=== PATIENT | male | born 1950 | race Caucasian/White ===

== ENCOUNTER 2020-01-13 10:19 | Emergency (ER) | payer MEDICARE, OTHER, SELFPAY ==
--- NOTE | 2020-01-13 | CT_ITS ---
EXAMINATION: CT ABDOMEN AND PELVIS WITHOUT CONTRAST CLINICAL INFORMATION: Urinary retention with recent bilateral stent placement. COMPARISON: Previous CT of the abdomen and pelvis most recent November 2014 and bladder ultrasound December 2017. TECHNIQUE: Multidetector volumetric imaging was performed from the superior aspect of the liver through the pubic symphysis. Sagittal and coronal reformatted images were obtained on the technologist's workstation. This CT examination was performed using dose optimization techniques as appropriate, variously including the following: *Automated exposure control *Adjustment of mA and/or kV according to patient size (this includes techniques or standardized protocols for targeted exams where dose is matched to indication/reason for exam; i.e. extremities or head) *Use of iterative reconstruction technique DLP: 276 mGy-cm. FINDINGS: LUNG BASES: The visualized lung bases are clear. The lungs appear well inflated. LIVER, GALLBLADDER, AND BILIARY TREE: The liver is normal in size, shape, and attenuation. No focal hepatic lesion or biliary ductal dilatation is present. The gallbladder is unremarkable with no evidence of radiopaque gallstones, gallbladder wall thickening, or obvious pericholecystic inflammatory changes. PANCREAS: There are multiple calcifications in the pancreas, suggestive of chronic pancreatitis. There is a cyst is seen in the uncinate process of the head of the pancreas that measures 1.8 cm. This is increased in size from 1.5 cm on 2015 exam. SPLEEN: Unremarkable. ADRENAL GLANDS: Unremarkable. KIDNEYS AND URETERS: The right kidney is atrophic. There is mild dilatation of the right renal pelvis. There is a small 4 mm high-attenuation area in the upper pole of the right kidney questionable for hyperdense cyst or calcification. The right ureter does not appear dilated. There may be compensatory hypertrophy of the left kidney. No left renal stone or hydronephrosis is seen. The left ureter does not appear dilated. No ureteral stent is seen. BLADDER: There is a Kumar catheter in the bladder. There is a moderate amount of urine seen in the bladder. There is air in the bladder, presumably related to Kumar catheter placement. GASTROINTESTINAL TRACT: There is stool seen throughout the colon, suggestive of constipation. There are fluid-filled loops of small bowel. The appendix is unremarkable. ABDOMINAL WALL: There is a small umbilical hernia containing fat. LYMPH NODES: Normal. VASCULAR: There is evidence of severe atherosclerotic disease. There is a stent in the SMA, and, left common iliac and bilateral external iliac arteries. There are small fluid collection seen in both inguinal regions and skin nissa. There are superficial fluid collection seen just deep to the surgical nissa bilaterally, left greater than right. There is a deeper 4 cm fluid collection adjacent to the left superficial femoral and profunda femoral arteries. There is a deeper 2 cm fluid collection adjacent to the right common femoral artery and femoral bifurcation. PELVIC VISCERA: Unremarkable. OSSEOUS STRUCTURES: There are degenerative changes of the spine and hip joints. IMPRESSION: Kumar catheter in the bladder. There is a [id number] amount of fluid in the bladder. There is air in the bladder, question related to Kumar catheter placement. Atrophic-appearing right kidney and probable compensatory hypertrophy of the left kidney. No definite stone or hydronephrosis is seen. No ureteral stent seen. Severe atherosclerotic disease. Surgical clips in both groins suggestive of recent previous vascular procedure. Left common iliac and bilateral external iliac stents. Bilateral groin fluid collections, question post procedural, left greater than right. There are bilateral superficial fluid collections deep to the skin nissa, left greater than right and deeper fluid collection adjacent to the distal SFA/femoral bifurcations measuring 2 cm on the right and 4 cm on the left. If there is concern for a pseudoaneurysm, AV fistula, leak or hematoma, ultrasound or CTA should be considered. SMA stent. Extensive calcification in the pancreas suggestive of chronic pancreatitis. 1.8 cm cyst or cystic lesion in the uncinate process of the pancreas minimally increased from 1.5 cm on November 2014 exam. Stool throughout the colon, suggestive of constipation. Distended fluid-filled loops of small bowel, probably representing an ileus.
--- NOTE | 2020-01-13 | US_ITS ---
EXAMINATION: BILATERAL LOWER EXTREMITY ULTRASOUND NONVASCULAR CLINICAL INFORMATION: Evaluate fluid collections in the bilateral groins COMPARISON: CT of the abdomen and pelvis from earlier the same day TECHNIQUE: Doppler color and grayscale evaluation of the bilateral groins FINDINGS: There are bilateral superficial fluid collections seen in the groins adjacent to the vessels extending into the thighs. These do not contain flow to suggest pseudoaneurysm. Fluid collection in the right proximal thigh appears minimally complex with several thin septations. The remainder of the fluid collections appear simple without internal echoes or septations. Largest right fluid collection measures 4.1 x 5 x 2.2 cm. Largest left fluid collection measures 3.5 x 5.5 x 3.6 cm. The common femoral arteries are patent bilaterally. The left proximal superficial femoral and profunda femoral arteries are patent. IMPRESSION: Bilateral groin superficial fluid collections, minimally complex on the right and simple on the left. No evidence of pseudoaneurysm.
[2020-01-13 10:32] VITALS: BP 149/71; PULSE 90; RESP 18; TEMP 36.3; BMI 20.2
[2020-01-13 10:57] LABS: MANUAL DIFF FLAG NO
[2020-01-13 11:00] LABS: Basophils Percent Auto 0.2 % (0-2); Eosinophils Percent Auto 0.1 % (0-4); Hematocrit 33.2 % (42-52); Hemoglobin 11.5 g/dl (14.0-18.0); Imm Gran Abs Auto 0.17 X10*3/uL (0.00-0.03); Imm Gran Pct Auto 1.3 % (0.0-0.4); Lymphocytes Percent Auto 7.3 % (20-40); Mean Corpuscular HGB Conc 34.6 g/dl (31.0-36.0); Mean Corpuscular Hemoglobin 33.8 pg (27.0-33.0); Mean Corpuscular Volume 97.6 fL (80-98); Mean Platelet Volume 8.3 fL (9.4-12.4); Monocytes Absolute Auto 1.2 X10*3/uL (0.1-1.2); Monocytes Percent Auto 8.5 % (2-11); Neutrophils Absolute Auto 11.2 X10*3/uL (2.0-8.3); Neutrophils Percent Auto 82.6 % (45-73); Platelet Count 413 X10*3/uL (160-400); Red Cell Distribution Width 14.2 % (11.0-16.0); White Blood Count 13.6 X10*3/uL (4.8-10.8)
[2020-01-13 11:21] LABS: Blood Urea Nitrogen 14 mg/dL (9-16); Creatinine Clr Calc Pharmacy 57.9; Estimated Glomerular Filt Rate > 60; Glucose Random 161 mg/dL (60-115)
[2020-01-13 11:30] LABS: Anion Gap 16 (12-20); Carbon Dioxide 17 mmol/L (22-29); Chloride 96 mmol/L (96-108); Sodium 124 mmol/L (135-145)
--- NOTE | 2020-01-13 11:33 | PC.NURSE ---
DIFFICULTY INSERTING A CATHETER DR MEREDITH AT BEDSIDE, PT TOLERATED PROCEDURE WELL
[2020-01-13 11:55] LABS: Glucose Urine UA NEG (NEG); Leukocyte Esterase Urine NEG (NEG); Nitrite Urine NEG (NEG); Specific Gravity - Urine <= 1.005 (1.005-1.025); Urine Blood 3+ (NEG); Urine Ketones NEG (NEG); Urine Protein NEG (NEG-TRACE)
[2020-01-13 11:58] LABS: Appearance Urine CLEAR; Color Urine YELLOW
[2020-01-13 12:08] LABS: Bacteria Urine TRACE /LPF; Renal Epithelial Cells Urine TRACE /LPF; Squamous Epithelial Cell Urine 1+ /LPF; WBC Urine 0-2 /HPF (0-4)
[2020-01-13 12:14] VITALS: BP 138/76; PULSE 86; RESP 16; TEMP 36.4; O2SAT 99
--- NOTE | 2020-01-13 12:41 | ED_ITS ---
HPI - Male Genitourinary General Chief complaint: Urogenital-Male Stated complaint: FREQUENT URINATION Time Seen by Provider: 01/13/20 10:41 Source: patient Mode of arrival: ambulatory History of Present Illness HPI Narrative: 69-year-old male with a past medical history of hypertension, diabetes, hyperlipidemia, BPH, recent bilateral LE arterial stent placement c/o urinary retention/ frequency at night with decreased UOP. Denies fever, chills, nausea/ vomiting, abdominal pain, flank pain, hematuria, dysuria Related Data Previous Rx's Medication Instructions Recorded metoprolol succinate 50 mg 50 mg PO DAILY 30 Days #30 tab 01/08/20 tablet,extended release 24 hr Allergies Allergy/AdvReac Type Severity Reaction Status Date / Time clams Allergy Severe SWELLING Verified 01/13/20 10:21 clams Allergy Unknown anaphylaxis Unverified 11/11/19 00:00 Review of Systems Review of Systems: Constitutional: No Weight loss, No Fever, No Chills, Cardiovascular: No Chest Pain, No SOB Respiratory: No Cough, No Sputum, No Wheezing Gastrointestinal: No Nausea, No Vomiting, No Diarrhea, No Constipation, No abdominal Pain Genitourinary: no irregular bleeding, No Dysuria, + Urinary Frequency, No Hematuria, No Urinary Incontinence, No Urgency, No Flank Pain, + Urinary Flow Changes, No Hesitancy Skin: No Skin Lesions, No rash Yes all other systems are reviewed and are negative Neurologic: Denies Sensory deficit (Neuro) [facility] Past Medical History Attestation statement: The following information was validated with the patient. Medical History (Updated 01/13/20 @ 15:00 by ALDEN Bowen) Diabetes Hyperlipidemia Hypertension Urological system complication of procedure Social History Social History Alcohol intake: current Alcohol intake frequency: 0-2 drinks per day Alcohol type: beer Smoking Status: Current every day smoker Use of substances other than those prescribed or required for medical reasons: No Advance Directives: No Advance Directives Information Provided: Yes Physical Exam Vital Signs and I&O and Narrative: Vital Signs and I&O: Vital Signs Temp 97.6 F 01/13/20 12:14 Pulse 95 01/13/20 14:20 Resp 16 01/13/20 14:20 BP 121/71 01/13/20 14:20 Pulse Ox 99 01/13/20 12:14 Intake & Output 01/12/20 01/13/2001/12/20 18:59 06:59 18:59 Output Total 1428 / 1428 Balance -1428 / -1428 Urine Output (Aver age ml/kg/hr) 2.10 Weight 56.8 kg Output: Output, Urine Am ount 1428 / 1428 Body Mass Index 20.2 Const: General: cooperative and healthy appearing Orientation/consciousness: patient oriented x3 Limitations: no limitations HENMT: Head: Yes normal to inspection Ears: hearing grossly normal bilate rally General nose exam: Normal external nose present Face and sinus: Yes normal facial exam Eyes: General: appearance normal, both eyes and all related structures EOM: EOMs intact bilaterally Neck: Neck: Yes normal visual inspection Resp: Effort & Inspection: normal respiratory effort and no stridor Auscultation: clear to auscultation bilaterally, no crackles, no rales, no rhonc hi and no wheezes Cardio: Rate: regular rate Heart sounds: S1 normal heart sound present and S2 normal heart sound present Peripheral pulses: Peripheral pulses 2+ throughout GI: Other: no CVAT Inspection: Yes normal to inspection Palpation (GI): Soft to palpation, nontender, no guarding and not rigid : General: No CVA tenderness Penis: normal penis Testes: Testes normal Back/Spine/Pelvis: Back: No CVA tenderness Skin: Wounds: no wounds Neuro: General: patient oriented x3 Gait exam (Neuro): Normal gait present Sensory Exam: No Sensory deficit (Neuro) Extrem: General: Yes normal to inspection Course Course Course Narrative: -Coude placed due to BPH/difficulty inserting Kumar -1259-- mild leukocytosis of 13.6. H&H slightly lower than baseline, likely postsurgical changes Sodium chronically low UA with 3+ blood. Not infected -1309- CT showing flow catheter in the bladder with moderate to large amount of fluid. Bladder currently draining > will obtain bladder scan to eval fluid seen on CT Question pseudoaneurysm vs AV fistula vs leak or hematoma in groin. Will obtain ultrasound to evaluate Stool throughout the colon suggestive of constipation. Distended fluid-filled probably representing ileus >> patient has been having normal BMs, last yesterday, clinically no ileus /obstruction -1448-- ultrasound showing bilateral groin superficial fluid collections, minimally complex on the right and simple left. No evidence of pseudoaneurysm lab and imaging results discussed with patient including worrisome signs and symptoms and strict return precautions. Patient will be discharged with indwelling Kumar catheter to follow-up with urology Reevaluation(s) Reevaluation #3: repeat bladder scan with 28 cc MDM - Male Genitourinary MDM Narrative Medical decision making narrative: 69-year-old male with a past medical history of hypertension, diabetes, hyperlipidemia, BPH, recent bilateral LE arterial stent placement c/o urinary retention/ frequency at night with decreased UOP. On exam VSS, NAD/ well-appearing. Abdomen soft/nontender, no CVA tenderness. Concern for urinary retention vs obstruction vs ?surgical complication. Rule out infectious etiology Plan: labs, UA, CT AP, reassess bladder scan with greater than 500 cc >> patient unable to urinate will insert Kumar catheter Lab Data Result diagrams: 01/13/20 10:52 01/13/20 10:52 Labs: Lab Results 01/13/20 01/13/20 01/13/20 Range/Units 10:52 10:52 10:52 WBC 13.6 H (4.8-10.8) X10*3/uL RBC 3.40 L (4.60-5.80) X10*6/uL Hgb 11.5 L (14.0-18.0) g/dl Hct 33.2 L (42-52) % MCV 97.6 (80-98) fL MCH 33.8 H (27.0-33.0) pg MCHC 34.6 (31.0-36.0) g/dl RDW 14.2 (11.0-16.0) % Plt Count 413 H (160-400) X10*3/uL MPV 8.3 L (9.4-12.4) fL Immature Gran % (Auto) 1.3 H (0.0-0.4) % Neut % (Auto) 82.6 H (45-73) % Lymph % (Auto) 7.3 L (20-40) % [place] % (Auto) 8.5 (2-11) % Eos % (Auto) 0.1 (0-4) % Baso % (Auto) 0.2 (0-2) % Neut # (Auto) 11.2 H (2.0-8.3) X10*3/uL Lymph # (Auto) 1.0 L (1.2-4.9) X10*3/uL [place] # (Auto) 1.2 (0.1-1.2) X10*3/uL Eos # (Auto) 0.0 (0.0-0.4) X10*3/uL Baso # (Auto) 0.0 (0.0-0.2) X10*3/uL Abs Immat Gran (auto) 0.17 H (0.00-0.03) X10*3/uL Absolute Nucleated RBC 0.000 (0.0-0.012) X10*3/uL Nucleated RBC % (auto) 0.0 (0.0-0.2) /100WBC Hold Blue Top SEE NOTE Sodium 124 L (135-145) mmol/L Potassium 5.0 (3.3-5.1) mmol/l Chloride 96 (96-108) mmol/L Carbon Dioxide 17 L (22-29) mmol/L Anion Gap 16 (12-20) BUN 14 (9-16) mg/dL Creatinine 0.98 (0.5-1.4) mg/dL Estim Creat Clear Calc 57.9 Estimated GFR > 60 Random Glucose 161 H (60-115) mg/dL Calcium 8.0 L (8.4-10.2) mg/dL Urine Color Urine Appearance Urine pH (5.0-8.0) Ur Specific [place] (1.005-1.025) Urine Protein (NEG-TRACE) MG/DL Urine Glucose (UA) (NEG) MG/DL Urine Ketones (NEG) MG/DL Urine Blood (NEG) Urine Nitrite (NEG) Ur Leukocyte Esterase (NEG) Urine RBC (0) /HPF Urine WBC (0-4) /HPF Ur Squamous Epith Cells /LPF Ur Renal Epithelial Cell /LPF Urine Bacteria /LPF 01/13/20 Range/Units 11:37 WBC (4.8-10.8) X10*3/uL RBC (4.60-5.80) X10*6/uL Hgb (14.0-18.0) g/dl Hct (42-52) % MCV (80-98) fL MCH (27.0-33.0) pg MCHC (31.0-36.0) g/dl RDW (11.0-16.0) % Plt Count (160-400) X10*3/uL MPV (9.4-12.4) fL Immature Gran % (Auto) (0.0-0.4) % Neut % (Auto) (45-73) % Lymph % (Auto) (20-40) % [place] % (Auto) (2-11) % Eos % (Auto) (0-4) % Baso % (Auto) (0-2) % Neut # (Auto) (2.0-8.3) X10*3/uL Lymph # (Auto) (1.2-4.9) X10*3/uL [place] # (Auto) (0.1-1.2) X10*3/uL Eos # (Auto) (0.0-0.4) X10*3/uL Baso # (Auto) (0.0-0.2) X10*3/uL Abs Immat Gran (auto) (0.00-0.03) X10*3/uL Absolute Nucleated RBC (0.0-0.012) X10*3/uL Nucleated RBC % (auto) (0.0-0.2) /100WBC Hold Blue Top Sodium (135-145) mmol/L Potassium (3.3-5.1) mmol/l Chloride (96-108) mmol/L Carbon Dioxide (22-29) mmol/L Anion Gap (12-20) BUN (9-16) mg/dL Creatinine (0.5-1.4) mg/dL Estim Creat Clear Calc Estimated GFR Random Glucose (60-115) mg/dL Calcium (8.4-10.2) mg/dL Urine Color YELLOW Urine Appearance CLEAR Urine pH 7.0 (5.0-8.0) Ur Specific [place] <= 1.005 (1.005-1.025) Urine Protein NEG (NEG-TRACE) MG/DL Urine Glucose (UA) NEG (NEG) MG/DL Urine Ketones NEG (NEG) MG/DL Urine Blood 3+ H (NEG) Urine Nitrite NEG (NEG) Ur Leukocyte Esterase NEG (NEG) Urine RBC 1-4 (0) /HPF Urine WBC 0-2 (0-4) /HPF Ur Squamous Epith Cells 1+ /LPF Ur Renal Epithelial Cell TRACE /LPF Urine Bacteria TRACE /LPF Discharge Plan Discharge Clinical Impression: Acute retention of urine Patient Disposition: Home, Self-Care Instructions: Urinary Retention in Men (ED) Additional Instructions: your blood work was reassuring today in the ED. Your urine is not infected Your CAT scan showed evidence of constipation. It also showed fluid in your groin which was evaluated with an ultrasound, the ultrasound did not show any concerning findings You were in urinary retention, we placed a Kumar catheter. You need to follow- up with urology in 1 week to have catheter removed /a trial to void If your urine becomes bloody, painful, your you do not have a bowel movement, nausea/vomiting, or develops fever return to the ED Prescriptions: No Action metoprolol succinate 50 mg tablet extended release 24 hr 50 mg PO DAILY 30 Days Qty: 30 RF: 2 Referrals: Quinton Andrade III, MD [Physician] - 5 days
--- NOTE | 2020-01-13 13:41 | PC.NURSE ---
pt bladder scan for 28ml pt transported to us
[2020-01-13 14:20] VITALS: BP 121/71; PULSE 95; RESP 14; RESP 16
== END 2020-01-13 15:28 | disposition home or self-care (01) ==
PROVIDERS: Physician Assistant; Emergency Provider Emergency Medicine; PCP Nurse Practitioner Family
DX: R33.9 Retention of urine, unspecified (principal); I10 Essential (primary) hypertension; E11.9 Type 2 diabetes mellitus without complications; E78.5 Hyperlipidemia, unspecified; F17.200 Nicotine dependence, unspecified, uncomplicated
CPT/HCPCS: 51702; 36415; 51798; 74176; 76882; 80048; 81001; 85025; 99284; 99285

== ENCOUNTER → 2020-01-22 08:33 | Outpatient (BNVA) | payer MEDICARE, OTHER, SELFPAY | PROVIDERS: PCP Nurse Practitioner Family; Visit Provider Urology | DX: Z46.6 Encounter for fitting and adjustment of urinary device (principal); N99.89 Other postprocedural complications and disorders of genitourinary system; R33.8 Other retention of urine | CPT/HCPCS: 51798; 99213 ==

== ENCOUNTER → 2020-01-28 08:36 | Outpatient (BNVA) | payer MEDICARE, OTHER, SELFPAY | PROVIDERS: PCP Nurse Practitioner Family; Visit Provider Urology | DX: R33.9 Retention of urine, unspecified (principal) | CPT/HCPCS: 51798; 99213 ==

== ENCOUNTER → 2020-02-15 09:21 | Outpatient (BNVA) | payer MEDICARE, OTHER, SELFPAY | PROVIDERS: PCP Nurse Practitioner Family; Visit Provider Internal Medicine | DX: J44.9 Chronic obstructive pulmonary disease, unspecified (principal); F17.210 Nicotine dependence, cigarettes, uncomplicated; Z79.899 Other long term (current) drug therapy; Z71.6 Tobacco abuse counseling | CPT/HCPCS: 94010; 99212 ==

== ENCOUNTER 2020-03-02 07:49 | Outpatient (REF) | payer MEDICARE, OTHER, SELFPAY ==
[2020-03-02 11:50] LABS: Alanine Aminotransferase 17 U/L (0-40); Albumin Level 3.5 g/dL (3.5-5.0); Alkaline Phosphatase 85 U/L (39-117); Anion Gap 14 (12-20); Aspartate Amino Transferase 15 U/L (5-37); Bilirubin Total 0.3 mg/dL (0.0-1.0); Blood Urea Nitrogen 25 mg/dL (9-16); Calcium 8.5 mg/dL (8.4-10.2); Carbon Dioxide 19 mmol/L (22-29); Chloride 103 mmol/L (96-108); Cholesterol 94 mg/dL; Estimated Glomerular Filt Rate > 60; Glucose Fasting 125 mg/dL (60-99); HDL Cholesterol 38 mg/dL; LDL Cholesterol Calculated 40 mg/dl; Potassium 5.7 mmol/l (3.3-5.1); Sodium 130 mmol/L (135-145); Total Protein 6.2 g/dL (6.5-8.0); Triglycerides 83 mg/dL
[2020-03-02 11:53] LABS: Estimated Average Glucose 126 mg/dL
[2020-03-02 12:08] LABS: Prostate Specific Antigen Scr 0.54 ng/mL (<0.05-4.0)
== END 2020-03-02 07:50 | disposition home or self-care (01) ==
LOC: HO.HMGCLDS 07:49
PROVIDERS: PCP Nurse Practitioner Family; Visit Provider Nurse Practitioner Family
DX: E78.5 Hyperlipidemia, unspecified (principal); E11.9 Type 2 diabetes mellitus without complications; I10 Essential (primary) hypertension; Z12.5 Encounter for screening for malignant neoplasm of prostate
CPT/HCPCS: 80053; 80061; 83036; 84153

== ENCOUNTER 2020-03-04 10:51 | Outpatient (REF) | payer MEDICARE, OTHER, SELFPAY ==
[2020-03-04 14:22] LABS: Anion Gap 16 (12-20); Carbon Dioxide 19 mmol/L (22-29); Chloride 101 mmol/L (96-108); Potassium 4.6 mmol/l (3.3-5.1); Sodium 131 mmol/L (135-145)
[2020-03-04 14:40] LABS: Creatinine Urine 35.85 mg/dL; Microalbum/Creatinine Ratio Ur 323.5 ug/mg cr
== END 2020-03-04 10:52 | disposition home or self-care (01) ==
LOC: HO.HMGCLDS 10:51
PROVIDERS: PCP Nurse Practitioner Family; Visit Provider Nurse Practitioner Family
DX: Z13.9 Encounter for screening, unspecified (principal); R33.9 Retention of urine, unspecified; E11.9 Type 2 diabetes mellitus without complications; E78.5 Hyperlipidemia, unspecified; I10 Essential (primary) hypertension; E87.5 Hyperkalemia
CPT/HCPCS: 80051; 82043; 87086; 87088; 87186

== ENCOUNTER → 2020-04-11 14:33 | Outpatient (BNVA) | payer MEDICARE, OTHER, SELFPAY | PROVIDERS: PCP Nurse Practitioner Family; Visit Provider Urology | DX: N39.0 Urinary tract infection, site not specified (principal); N99.89 Other postprocedural complications and disorders of genitourinary system; R33.8 Other retention of urine | CPT/HCPCS: 51798; 81002; 99212 ==

== ENCOUNTER → 2020-04-25 08:51 | Outpatient (BNVA) | payer MEDICARE, OTHER, SELFPAY | PROVIDERS: PCP Nurse Practitioner Family; Visit Provider Urology | DX: Z76.89 Persons encountering health services in other specified circumstances (principal) | CPT/HCPCS: 51798; 99212 ==

== ENCOUNTER 2020-04-25 09:35 | Outpatient (REF) | payer MEDICARE, OTHER, SELFPAY ==
[2020-04-25 10:38] LABS: Blood Urea Nitrogen 33 mg/dL (9-16); Estimated Glomerular Filt Rate 42
== END 2020-04-25 09:36 | disposition home or self-care (01) ==
LOC: HO.10HDL 09:35
PROVIDERS: Visit Provider Urology
DX: R31.0 Gross hematuria (principal)
CPT/HCPCS: 36415; 51798; 82565; 84520; 99212

== ENCOUNTER 2020-04-26 | Outpatient (REF) | payer MEDICARE, OTHER, SELFPAY ==
[2020-04-27 09:20] LABS: Urine Cytology See Pathology rpt
== END 2020-04-26 00:01 | disposition home or self-care (01) ==
LOC: HO.LNP
PROVIDERS: Visit Provider Urology
DX: R31.0 Gross hematuria (principal)
CPT/HCPCS: 88112

== ENCOUNTER 2020-05-02 08:34 | Outpatient (REF) | payer MEDICARE, OTHER, SELFPAY ==
--- NOTE | 2020-05-02 08:37 | CT_ITS ---
EXAMINATION: CT ABDOMEN AND PELVIS WITHOUT AND WITH CONTRAST CLINICAL INFORMATION: Gross hematuria COMPARISON: CT abdomen and pelvis 01/13/2020 TECHNIQUE: Multidetector volumetric imaging was performed of the abdomen and pelvis before and after the IV administration of 85 mL of Omnipaque 300 intravenous contrast. Sagittal and coronal reformatted images were obtained on the technologist's workstation. This CT examination was performed using dose optimization techniques as appropriate, variously including the following: *Automated exposure control *Adjustment of mA and/or kV according to patient size (this includes techniques or standardized protocols for targeted exams where dose is matched to indication/reason for exam; i.e. extremities or head) *Use of iterative reconstruction technique DLP: 98 mGy-cm FINDINGS: LUNG BASES: The lung bases are hyperinflated. LIVER, GALLBLADDER, AND BILIARY TREE: The liver is normal in size, shape, and attenuation. No focal hepatic lesion or biliary ductal dilatation is present. The gallbladder is unremarkable with no evidence of radiopaque gallstones, gallbladder wall thickening, or obvious pericholecystic inflammatory changes. PANCREAS: The pancreas is normal size with diffuse coarse calcification likely from chronic pancreatitis. There is moderate dilation of the pancreatic duct, measuring 0.7 x 0.9 cm in distal body of the pancreas. There is a hypodense 2.0 cm lesion in the uncinate process of the pancreas measuring 20 Hounsfield units likely a cyst. On the last exam, it measured 1.8 cm and 1.5 cm on 2015 exam. SPLEEN: Unremarkable ADRENAL GLANDS: There is a left adrenal hypodense lesion measuring 2.1 x 1.6 cm and 56 Hounsfield units on coronal image 43/10. The right adrenal gland is unremarkable. KIDNEYS AND URETERS: The right kidney is small measuring 7.1 cm with a focal hypodensity in the upper pole calyx, question prominent calyx versus small cyst measuring 5 mm. The left kidney is normal size measuring 12.1 cm. There is normal cortical nephrograms without any cyst, solid mass, echogenic calculi, or hydronephrosis. There is good opacification of the left kidney, extrarenal pelvis and ureter without filling defect or dilatation. The right ureter and pelvis are not opacified. BLADDER: The bladder is somewhat distended with diffuse irregular bladder wall thickening. The anterior wall thickness measures approximately 6 mm. There is a small diverticulum along the right anterior bladder wall. GASTROINTESTINAL TRACT: There are multiple prominent small bowel loops with fluid. There is gas and stool seen in the right colon but no distention seen. ABDOMINAL WALL: No significant hernia is appreciated. LYMPH NODES: Normal VASCULAR: There is heavily calcified abdominal aorta and its branches extending to both common iliac arteries and external iliac arteries. PELVIC VISCERA: The prostate gland is mildly enlarged with central lucency, question TURP defect. OSSEOUS STRUCTURES: Mild degenerative disc changes with endplate sclerosis L2-L3 and L4-L5 disc levels. There is degenerative disc changes and vacuum disc phenomena at L3-L4, L1-L2 and T12-L1 disc levels. No fracture or lytic process seen. CT/CT abdomen pelvis wo/w con IMPRESSION: 1. Small right kidney with probable small cyst, upper pole right kidney. 2. No radiopaque calculus seen in either kidney. [employer] Consultant hypertrophy left kidney is noted without any radiopaque calculi or hydroureteronephrosis. The left ureter is unremarkable. The right ureter is not visualized. 3. Diffuse bladder wall thickening likely secondary to prostate enlargement. There is a small bladder diverticulum The central prostate hypodensity, question TURP defect. 4. Left adrenal lesion. 5. Diffuse pancreatic parenchymal calcification from chronic pancreatitis. There is moderate distention of the pancreatic duct in the mid abdomen and likely a cyst in the uncinate process of the pancreas.
[2020-05-02] MEDS: iohexoL 350 MG/ML 100 ML INFUS..BTL 85 ML IV (10:23)
== END 2020-05-02 08:35 | disposition home or self-care (01) ==
LOC: HO.CT 08:34
PROVIDERS: Visit Provider Urology
DX: R31.0 Gross hematuria (principal); F17.200 Nicotine dependence, unspecified, uncomplicated
CPT/HCPCS: 74178; Q9967

== ENCOUNTER → 2020-06-02 08:48 | Outpatient (BNVA) | payer MEDICARE, OTHER, SELFPAY | PROVIDERS: PCP Nurse Practitioner Family; Visit Provider Urology | DX: N40.1 Benign prostatic hyperplasia with lower urinary tract symptoms (principal); N13.8 Other obstructive and reflux uropathy; N39.0 Urinary tract infection, site not specified; F17.200 Nicotine dependence, unspecified, uncomplicated; Z46.6 Encounter for fitting and adjustment of urinary device; Z96.0 Presence of urogenital implants | CPT/HCPCS: 52332; 81002; 99212 ==

== ENCOUNTER → 2020-06-30 09:50 | Outpatient (BNVA) | payer MEDICARE, OTHER, SELFPAY | PROVIDERS: PCP Nurse Practitioner Family; Visit Provider Urology | DX: N40.1 Benign prostatic hyperplasia with lower urinary tract symptoms (principal); N13.8 Other obstructive and reflux uropathy; R31.0 Gross hematuria | CPT/HCPCS: 99212 ==

== ENCOUNTER 2020-07-20 07:06 | Outpatient (REF) | payer MEDICARE, OTHER, SELFPAY ==
[2020-07-20 11:32] LABS: Estimated Average Glucose 137 mg/dL; Hemoglobin A1c % 6.4 %
[2020-07-20 12:27] LABS: TSH reflex Free T4 1.15 uIU/mL (0.32-4.0)
[2020-07-20 12:42] LABS: Alanine Aminotransferase 21 U/L (0-40); Albumin Level 3.5 g/dL (3.5-5.0); Alkaline Phosphatase 125 U/L (39-117); Anion Gap 14 (12-20); Aspartate Amino Transferase 23 U/L (5-37); Bilirubin Total 0.3 mg/dL (0.0-1.0); Blood Urea Nitrogen 22 mg/dL (9-16); Calcium 8.2 mg/dL (8.4-10.2); Carbon Dioxide 14 mmol/L (22-29); Chloride 105 mmol/L (96-108); Cholesterol 95 mg/dL; Estimated Glomerular Filt Rate 49; Glucose Fasting 84 mg/dL (60-99); HDL Cholesterol 53 mg/dL; LDL Cholesterol Calculated 25 mg/dl; Potassium 5.1 mmol/L (3.3-5.1); Sodium 128 mmol/L (135-145); Total Protein 5.9 g/dL (6.5-8.0); Triglycerides 87 mg/dL
== END 2020-07-20 07:07 | disposition home or self-care (01) ==
LOC: HO.HMGCLDS 07:06
PROVIDERS: PCP Nurse Practitioner Family; Visit Provider Nurse Practitioner Family
DX: E11.9 Type 2 diabetes mellitus without complications (principal); N39.0 Urinary tract infection, site not specified; R79.89 Other specified abnormal findings of blood chemistry
CPT/HCPCS: 36415; 80053; 80061; 83036; 84443

== ENCOUNTER 2020-07-24 09:52 | Inpatient (IN) | payer MEDICARE, OTHER, SELFPAY ==
--- NOTE | 2020-07-24 | EEG_ITS ---
The waking background activity consists of low voltage fast frequencies, intermixed with muscle artifacts and poorly defined low voltage 8 hertz posterior alpha frequency. Photic stimulation is without activation. Hyperventilation was omitted. No sleep stages are identified. IMPRESSION: This waking EEG is considered within normal limits. No focal abnormalities are seen in the left hemisphere language area and there are no epileptiform discharges. MD PARESH Lake/JOHN / [id number]
--- NOTE | ~2020-07-24 | XR_ITS ---
EXAMINATION: XR CHEST CLINICAL INFORMATION: Concern for stroke. COMPARISON: 10/08/19. TECHNIQUE: Frontal view of the chest was obtained. FINDINGS: There are mild chronic appearing interstitial changes. No focal consolidation, mass lesion or other abnormality is demonstrated. The pleural spaces are clear. The heart and mediastinal structures are normal. No acute bony abnormality is evident. XR/XR chest 1V IMPRESSION: No acute cardiopulmonary disease demonstrated.
--- NOTE | ~2020-07-24 | MR_ITS ---
MRI OF THE BRAIN WITHOUT IV CONTRAST INDICATION: Question stroke. COMPARISON: Head CT performed earlier the same day. TECHNIQUE: Multiplanar multisequence MR imaging of the brain was obtained without IV contrast. FINDINGS: There is no hydrocephalus, extra-axial surface collection, or herniation. There are T2 signal changes throughout the supratentorial white matter and central neftali, likely moderate to severe chronic microangiopathy. 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 The major flow voids at the skull base are preserved. There is no acute infarct on diffusion-weighted imaging. There is no intracranial hemorrhage on the gradient recalled echo acquisition. Punctate focus of chronic hemosiderin staining within the left temporal lobe. The midline structures are normal. The cerebellar tonsils are normally positioned. The cerebellum and brainstem are normal. The craniocervical junction is normal. Osseous marrow signal intensity is homogenous. The visualized soft tissues are unremarkable. Moderate mucosal thickening within the left maxillary sinus. MR/MR head/brain wo con IMPRESSION: - No acute intracranial findings. No acute infarcts. - There are T2 signal changes throughout the supratentorial white matter and central neftali, likely moderate to severe chronic microangiopathy. 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 - Global cerebral volume loss.
--- NOTE | ~2020-07-24 | CT_ITS ---
EXAMINATION: CT HEAD WITHOUT CONTRAST (STROKE PROTOCOL) CLINICAL INFORMATION: Stroke protocol. Workup with symptoms COMPARISON: None TECHNIQUE: Contiguous axial imaging was performed from the skull base to vertex without intravenous administration of contrast. This CT examination was performed using dose optimization techniques as appropriate, variously including the following: *Automated exposure control *Adjustment of mA and/or kV according to patient size (this includes techniques or standardized protocols for targeted exams where dose is matched to indication/reason for exam; i.e. extremities or head) *Use of iterative reconstruction technique DLP: 656 mGy-cm FINDINGS: There is no acute intra-axial, extra-axial bleed, masses, collection or midline shift. There is moderate hypodensity in the mid neftali region on axial image 10/3 suspicious for ischemia. Differential diagnosis includes small vessel disease. In addition there is hypodensity seen in the left posterior parietal lobe deep white matter adjacent to the occipital horn likely old infarct. The lateral ventricles are symmetrical but enlarged. There is diffuse periventricular hypodensity suggestive of diffuse chronic small vessel ischemic changes. The calvarium appears intact. There is no pneumocephalus or orbital emphysema. The visualized sinuses and middle ears and mastoid air cells show no significant mucosal thickening. There are no air-fluid levels. CT/CT head for stroke IMPRESSION: Moderate hypodensity in the mid neftali region suspicious for edema or ischemia. There are no previous exam at the level of comparison. There is moderate cerebral volume loss with extensive bilateral periventricular small vessel microangiopathy. 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 This critical result was discussed with Suresh Buitrago at 10:15 a.m. It was ascertained that the content and urgency of the report was understood at the time of direct communication.
[2020-07-24 09:57] VITALS: BP 156/78; BP 157/77; PULSE 111; PULSE 120; RESP 16; TEMP 37.7; O2SAT 92; BMI 19.6
--- NOTE | 2020-07-24 09:57 | ECG_ITS ---
Test Reason : STROKE Blood Pressure : / mmHG Vent. Rate : 107 BPM Atrial Rate : 107 BPM P-R Int : 164 ms QRS Dur : 100 ms QT Int : 326 ms P-R-T Axes : 071 068 055 degrees QTc Int : 435 ms Sinus tachycardia Otherwise normal ECG When compared with ECG of 09-NOV-2014 11:20, ST no longer elevated in Inferior leads Referred By: Minna Prince Electronically Signed By:Adryan Izaguirre
--- NOTE | 2020-07-24 10:02 | ED_ITS ---
HPI - Altered Mental Status General Chief Complaint: Altered Mental Status Stated Complaint: ams Time Seen by Provider: 07/24/20 09:56 Source: family ( Chelle) and EMS Mode of arrival: EMS Limitations: altered mental status History of Present Illness HPI narrative: 69-year-old male with a past medical history of hypertension, diabetes, hyperlipidemia, BPH, bilateral lower extremity arterial stent placement currently on Plavix last took at 4pm yesterday presenting to the ED via EMS after his found him at approximately 8:30-9am with altered mental status mumbling his words not making any sense and unable to figure out how to urinate on his own. Although initially from EMS report they reported that this was unknown well time and patient woke up with this. The reports that last night around 23:00 that the patient was at his normal baseline although he was complaining of being cold therefore she gave him his electric blanket then this morning when he woke up she noticed he went down the stairs and he poured his own coffee and he appeared to be reading the paper she went upstairs to do some things and she came back downstairs at approximately 08:30-9am. And he was mumbling his words unable to figure out how to urinate she was trying to help him then she realized that she needed to call EMS. MD complaint: altered mental status Onset (ago): unknown (Initially EMS reported a known well time that the patient woke up with this per is report although reports this started around 8:30/09:00 this morning) Timing confirmed by: spouse ( for Carla) Severity: severe Consistency of symptoms: constant Related Data Home Medications Medication Instructions Recorded Confirmed oxybutynin chloride 15 mg mg PO 01/22/20 07/11/20 tablet,extended release 24 hr oxybutynin chloride 5 mg mg PO 01/22/20 07/11/20 tablet,extended release 24 hr multivitamin 1 tab PO DAILY 02/15/20 07/11/20 tamsulosin 0.4 mg capsule mg PO 02/15/20 07/11/20 lisinopril 40 mg tablet 40 mg PO DAILY 06/02/20 07/11/20 Previous Rx's Medication Instructions Recorded atorvastatin 80 mg tablet 80 mg PO BEDTIME 90 Days #90 tab 04/04/20 amlodipine 10 mg tablet 10 mg PO DAILY 90 Days #90 tab 05/09/20 finasteride 5 mg tablet 5 mg PO DAILY 90 Days #90 tab 06/02/20 sulfamethoxazole 800 1 tab PO BID 14 Days #28 tab 06/30/20 mg-trimethoprim 160 mg tablet clopidogrel 75 mg tablet 75 mg PO DAILY #90 tab 07/11/20 metoprolol succinate 50 mg 50 mg PO DAILY #90 tab 07/11/20 tablet,extended release 24 hr Allergies Allergy/AdvReac Type Severity Reaction Status Date / Time clams Allergy Severe SWELLING Verified 07/11/20 08:46 Review of Systems Review of Systems: Yes Unobtainable due to mental status [facility] Past Medical History Attestation statement: The following information was validated with the patient. Medical History Carotid artery narrowing COPD (chronic obstructive pulmonary disease) Diabetes ETOH abuse Gross hematuria Hyperlipidemia Hypertension Peripheral arterial disease PVD (peripheral vascular disease) Smoker Toxic myopathy Urological system complication of procedure Surgical History H/O heart artery stent Family History Family History Father Parkinsons disease Mother Diabetes Social History Social History Alcohol intake: current Alcohol intake frequency: 0-2 drinks per day Alcohol type: beer Smoking Status: Current every day smoker Advance Directives: Yes Advance Directives Information Provided: No Advance Directives on File: No Physical Exam Vital Signs: Vital Signs: Last Vital Signs Temp 98.3 F 07/24/20 15:25 Pulse 107 H 07/24/20 15:25 Resp 26 H 07/24/20 15:25 BP 173/83 H 07/24/20 15:25 Pulse Ox 93 07/24/20 15:25 Body Mass Index 19.6 Vital signs have been reviewed as normal and appeared to be correct. Blood pressure hypertensive 157/77. Heart rate tachycardic at 111. Respiration rate normal. Temperature normal. Oxygen saturation normal. Appearance: Altered/Confused. Mild acute distress. Head: Normal external exam. Normocephalic. Atraumatic. Able to rotate head bilaterally. Eyes: PERRLA. EOMI. No nystagmus noted. Conjunctiva and sclera normal. Eyelids normal. Corneal reflex normal. ENT: EAC normal. TM's Normal. No septal hematoma noted. No hemotympanum noted. Hearing normal. Around the patient's lips patient has dried blood and in the oropharynx. ? abrasion to left side of tongue no active bleeding. Otherwise no other obvious abrasions or lacerations noted. The rest of the pharynx is within normal limits. Uvula midline. tongue midline. Dry mucous membranes. No trismus noted. No drooling noted. No muffled voice noted. No nystagmus noted. Neck: Normal inspection. Neck supple. FROM. No adenopathy. Trachea midline. Thyroid Normal. No meningeal signs. No neck mass noted. CVS: Normal heart rate and rhythm. Heart sound normal. No murmurs noted. Pulses normal throughout. Respiratory: No respiratory distress. Painless inspiration. Breath sounds normal. No wheezes/rales/rhonchi noted. Chest nontender. No accessory muscle usage noted or decreased air movement noted. Abdomen: Soft and nontender. Bowel sounds normal in all 4 quadrants. No distention noted. No organomegaly noted. No visible injury noted. Back: No CVA tenderness. Full range of motion noted. Skin: Skin warm and dry. Normal skin color. Normal skin turgor. No rashes/lesions/lacerations noted. Extremities: No lower extremity edema. Extremities exhibit normal range of motion. Extremities nontender. Able to shrug shoulders bilaterally and keep up against resistance. Neuro: Altered/confused with moderate to severe aphasia/dysarthria although no focal neuro deficits are noted. Patient follows a few commands but for the most part does not follow any commands. No sensory deficit noted. Reflexes are normal. Patient is moving all extremities. No focal neuro deficits. Cranial nerves II-XI intact bilaterally. Facial strength normal. Gait not tested. No pronator drift. No tremors noted. No fasciculations noted. No rigidity noted. Muscle tone normal throughout. No asterixis noted. Hand drop overhead Mrs. face. NIH SS score 6. NIH Stroke Scale Internal: Initial- Upon Arrival Time: 09:57 Level of Consciousness: Alert Level of Consciousness Questions: Answers neither question correctly Level of Consciousness Commands: Performs one task correctly Best Gaze: Normal Visual: No visual loss Facial Palsy: Normal Motor Arm (Right): No drift Motor Arm (Left): No drift Motor Leg (Right): No drift Motor Leg (Left): No drift Limb Ataxia: Absent Sensory: Normal Best Language: Mild to moderate aphasia Dysarthia: Mild to moderate dysarthria Extinction and Inattention: Visual, tactile, auditory, spatial, or personal inattention Score: 6 Course Course Course Narrative: 10:14 - I received a call from Dr. Johnson the radiologist who reported No acute intercranial bleed although appears to have some type of brain stem lesion and he is recommending an MRI of brain at this time therefore ordered at this time. Consulted with neurology as well a waiting for return call. Will re-evaluate. Reevaluation(s) Reevaluation #1: - I received a call back from Dr. Barros the neurologist and explained to him the patient's presentation and the blood around the mouth and he reported due to the patient having blood around the mouth he would not give tPA and due to Dr. Johnson the radiologist already visualizing possible brainstem lesion he withhold tPA and obtain the MRI and admit. Will re-evaluate. Time: 10:22 Reevaluation #2: - MRI revealed chronic changes no acute processes such as CVA at this time. - labs reviewed and patient with an elevated white blood cell count of 22. - Mild anemia with an H&H of January. - sodium 128 - potassium 6.0 - carbon dioxide 15 - increase in the patient's BUN and creatinine at 34/1.78 - troponin 22.9 although no EKG changes were noted will repeat at 01:30 - all other labs are within normal limits. - patient was started on Rocephin for possible UTI due to history of UTIs in the past. Will place a Kumar at this time. Plan is to admit for encephalopathy/sepsis - Dr Vance to admit. Time: 12:02 Reevaluation #3: - UA obtained and patient positive for nitrates therefore patient positive for UTI. Drug urine screen negative. Will plan to admit to Dr. Renteria. Time: 15:33 MDM - Altered Mental Status MDM Narrative Medical decision making narrative: 9:57am - 69-year-old male with a past medical history of hypertension, diabetes, hyperlipidemia, BPH, recent bilateral lower extremity arterial stent placement currently on Plavix last took at 16:00 yesterday presenting to the ED via EMS after his found him at approximately 8:30-9am with altered mental status mumbling his words not making any sense and unable to figure out how to urinate on his own. Although initially from EMS report they reported that this was unknown well time and patient woke up with this. - On exam patient is alert although not orientated. No focal neuro deficits are noted. Patient has moderate to severe aphasia. NIHSS score 6. Patient is noted to have blood around his lips and in his mouth and abrasion to left side of tongue no active bleeding unsure if the patient had a seizure or had a fall with head injury therefore will consult with Neurology before any other treatments. Stroke protocol started at this time. Medical Records Attestation: I reviewed the patient's medical records. Lab Data Attestation: I reviewed the patient's lab results. Result diagrams: 07/24/20 10:37 07/24/20 10:37 Labs: Lab Results 07/24/20 07/24/20 07/24/20 Range/Units 10:13 10:37 10:37 WBC 22.0 H (4.8-10.8) X10*3/uL RBC 3.91 L (4.60-5.80) X10*6/uL Hgb 11.8 L (14.0-18.0) g/dl Hct 34.4 L (42-52) % MCV 88.0 (80-98) fL MCH 30.2 (27.0-33.0) pg MCHC 34.3 (31.0-36.0) g/dl RDW 16.2 H (11.0-16.0) % Plt Count 229 D (160-400) X10*3/uL MPV 8.7 L (9.4-12.4) fL Immature Gran % (Auto) 1.9 H (0.0-0.4) % Neut % (Auto) 88.5 H (45-73) % Lymph % (Auto) 1.1 L (20-40) % [place] % (Auto) 8.2 (2-11) % Eos % (Auto) 0.2 (0-4) % Baso % (Auto) 0.1 (0-2) % Lymph # (Auto) 0.2 L (1.2-4.9) X10*3/uL [place] # (Auto) 1.8 H (0.1-1.2) X10*3/uL Eos # (Auto) 0.0 (0.0-0.4) X10*3/uL Baso # (Auto) 0.0 (0.0-0.2) X10*3/uL Abs Immat Gran (auto) 0.41 H (0.00-0.03) X10*3/uL Absolute Neuts (auto) 19.5 H (2.0-8.3) X10*3/uL Absolute Nucleated RBC 0.000 (0.0-0.012) X10*3/uL Nucleated RBC % (auto) 0.0 (0.0-0.2) /100WBC Smear Tech's Comments VERIFIED PT 10.8 (10.8-13.0) SEC INR 0.9 (0.9-1.1) APTT 33.7 (24.1-38.0) SEC Sodium (135-145) mmol/L Potassium (3.3-5.1) mmol/L Chloride (96-108) mmol/L Carbon Dioxide (22-29) mmol/L Anion Gap (12-20) BUN (9-16) mg/dL Creatinine (0.5-1.4) mg/dL Estim Creat Clear Calc Estimated GFR POC Glucose 151 H (60-115) mg/dL Random Glucose (60-115) mg/dL Lactic Acid (0.5-2.0) mmol/L Calcium (8.4-10.2) mg/dL Magnesium (1.6-2.6) mg/dL Total Bilirubin (0.0-1.0) mg/dL Direct Bilirubin (0.0-0.5) mg/dL AST (5-37) U/L ALT (0-40) U/L Alkaline Phosphatase (39-117) U/L Ammonia (13-55) umol/L Total Creatine Kinase (38-174) U/L Troponin I High Sens (<3.5-35.0) ng/L Total Protein (6.5-8.0) g/dL Albumin (3.5-5.0) g/dL TSH (0.32-4.0) uIU/mL Urine Color Urine Appearance Urine pH (5.0-8.0) Ur Specific [place] (1.005-1.025) Urine Protein (NEG-TRACE) MG/DL Urine Glucose (UA) (NEG) MG/DL Urine Ketones (NEG) MG/DL Urine Blood (NEG) Urine Nitrite (NEG) Ur Leukocyte Esterase (NEG) Urine RBC (0) /HPF Urine WBC (0-4) /HPF Urine WBC Clumps Ur Squamous Epith Cells /LPF Urine Bacteria /LPF Urine Opiates Screen (Not Detect) Ur Barbiturates Screen (Not Detect) Ur Phencyclidine Scrn (Not Detect) Ur Amphetamines Screen (Not Detect) U Benzodiazepines Scrn (Not Detect) Urine Cocaine Screen (Not Detect) U Marijuana (THC) Screen (Not Detect) Ethyl Alcohol mg/dL 07/24/20 07/24/20 07/24/20 Range/Units 10:37 10:37 10:37 WBC (4.8-10.8) X10*3/uL RBC (4.60-5.80) X10*6/uL Hgb (14.0-18.0) g/dl Hct (42-52) % MCV (80-98) fL MCH (27.0-33.0) pg MCHC (31.0-36.0) g/dl RDW (11.0-16.0) % Plt Count (160-400) X10*3/uL MPV (9.4-12.4) fL Immature Gran % (Auto) (0.0-0.4) % Neut % (Auto) (45-73) % Lymph % (Auto) (20-40) % [place] % (Auto) (2-11) % Eos % (Auto) (0-4) % Baso % (Auto) (0-2) % Lymph # (Auto) (1.2-4.9) X10*3/uL [place] # (Auto) (0.1-1.2) X10*3/uL Eos # (Auto) (0.0-0.4) X10*3/uL Baso # (Auto) (0.0-0.2) X10*3/uL Abs Immat Gran (auto) (0.00-0.03) X10*3/uL Absolute Neuts (auto) (2.0-8.3) X10*3/uL Absolute Nucleated RBC (0.0-0.012) X10*3/uL Nucleated RBC % (auto) (0.0-0.2) /100WBC Smear Tech's Comments PT (10.8-13.0) SEC INR (0.9-1.1) APTT (24.1-38.0) SEC Sodium 128 L (135-145) mmol/L Potassium 6.0 H* (3.3-5.1) mmol/L Chloride 103 (96-108) mmol/L Carbon Dioxide 15 L (22-29) mmol/L Anion Gap 16 (12-20) BUN 34 H D (9-16) mg/dL Creatinine 1.78 H (0.5-1.4) mg/dL Estim Creat Clear Calc 30.1 Estimated GFR 38 POC Glucose (60-115) mg/dL Random Glucose 165 H (60-115) mg/dL Lactic Acid (0.5-2.0) mmol/L Calcium 8.5 (8.4-10.2) mg/dL Magnesium 2.1 (1.6-2.6) mg/dL Total Bilirubin 0.5 (0.0-1.0) mg/dL Direct Bilirubin 0.2 (0.0-0.5) mg/dL AST 19 (5-37) U/L ALT 18 (0-40) U/L Alkaline Phosphatase 96 D (39-117) U/L Ammonia 30 (13-55) umol/L Total Creatine Kinase 74 (38-174) U/L Troponin I High Sens 22.9 (<3.5-35.0) ng/L Total Protein 6.2 L (6.5-8.0) g/dL Albumin 3.6 (3.5-5.0) g/dL TSH 1.73 (0.32-4.0) uIU/mL Urine Color Urine Appearance Urine pH (5.0-8.0) Ur Specific [place] (1.005-1.025) Urine Protein (NEG-TRACE) MG/DL Urine Glucose (UA) (NEG) MG/DL Urine Ketones (NEG) MG/DL Urine Blood (NEG) Urine Nitrite (NEG) Ur Leukocyte Esterase (NEG) Urine RBC (0) /HPF Urine WBC (0-4) /HPF Urine WBC Clumps Ur Squamous Epith Cells /LPF Urine Bacteria /LPF Urine Opiates Screen (Not Detect) Ur Barbiturates Screen (Not Detect) Ur Phencyclidine Scrn (Not Detect) Ur Amphetamines Screen (Not Detect) U Benzodiazepines Scrn (Not Detect) Urine Cocaine Screen (Not Detect) U Marijuana (THC) Screen (Not Detect) Ethyl Alcohol mg/dL 07/24/20 07/24/20 07/24/20 Range/Units 10:37 10:37 14:45 WBC (4.8-10.8) X10*3/uL RBC (4.60-5.80) X10*6/uL Hgb (14.0-18.0) g/dl Hct (42-52) % MCV (80-98) fL MCH (27.0-33.0) pg MCHC (31.0-36.0) g/dl RDW (11.0-16.0) % Plt Count (160-400) X10*3/uL MPV (9.4-12.4) fL Immature Gran % (Auto) (0.0-0.4) % Neut % (Auto) (45-73) % Lymph % (Auto) (20-40) % [place] % (Auto) (2-11) % Eos % (Auto) (0-4) % Baso % (Auto) (0-2) % Lymph # (Auto) (1.2-4.9) X10*3/uL [place] # (Auto) (0.1-1.2) X10*3/uL Eos # (Auto) (0.0-0.4) X10*3/uL Baso # (Auto) (0.0-0.2) X10*3/uL Abs Immat Gran (auto) (0.00-0.03) X10*3/uL Absolute Neuts (auto) (2.0-8.3) X10*3/uL Absolute Nucleated RBC (0.0-0.012) X10*3/uL Nucleated RBC % (auto) (0.0-0.2) /100WBC Smear Tech's Comments PT (10.8-13.0) SEC INR (0.9-1.1) APTT (24.1-38.0) SEC Sodium (135-145) mmol/L Potassium (3.3-5.1) mmol/L Chloride (96-108) mmol/L Carbon Dioxide (22-29) mmol/L Anion Gap (12-20) BUN (9-16) mg/dL Creatinine (0.5-1.4) mg/dL Estim Creat Clear Calc Estimated GFR POC Glucose (60-115) mg/dL Random Glucose (60-115) mg/dL Lactic Acid 2.0 (0.5-2.0) mmol/L Calcium (8.4-10.2) mg/dL Magnesium (1.6-2.6) mg/dL Total Bilirubin (0.0-1.0) mg/dL Direct Bilirubin (0.0-0.5) mg/dL AST (5-37) U/L ALT (0-40) U/L Alkaline Phosphatase (39-117) U/L Ammonia (13-55) umol/L Total Creatine Kinase (38-174) U/L Troponin I High Sens (<3.5-35.0) ng/L Total Protein (6.5-8.0) g/dL Albumin (3.5-5.0) g/dL TSH (0.32-4.0) uIU/mL Urine Color YELLOW Urine Appearance HAZY Urine pH 6.5 (5.0-8.0) Ur Specific [place] 1.010 (1.005-1.025) Urine Protein TRACE (NEG-TRACE) MG/DL Urine Glucose (UA) NEG (NEG) MG/DL Urine Ketones NEG (NEG) MG/DL Urine Blood 1+ H (NEG) Urine Nitrite POS H (NEG) Ur Leukocyte Esterase 2+ H (NEG) Urine RBC 5-9 H (0) /HPF Urine WBC 30-49 H (0-4) /HPF Urine WBC Clumps NOTED Ur Squamous Epith Cells TRACE /LPF Urine Bacteria 2+ /LPF Urine Opiates Screen (Not Detect) Ur Barbiturates Screen (Not Detect) Ur Phencyclidine Scrn (Not Detect) Ur Amphetamines Screen (Not Detect) U Benzodiazepines Scrn (Not Detect) Urine Cocaine Screen (Not Detect) U Marijuana (THC) Screen (Not Detect) Ethyl Alcohol < 10 mg/dL 07/24/20 Range/Units 14:46 WBC (4.8-10.8) X10*3/uL RBC (4.60-5.80) X10*6/uL Hgb (14.0-18.0) g/dl Hct (42-52) % MCV (80-98) fL MCH (27.0-33.0) pg MCHC (31.0-36.0) g/dl RDW (11.0-16.0) % Plt Count (160-400) X10*3/uL MPV (9.4-12.4) fL Immature Gran % (Auto) (0.0-0.4) % Neut % (Auto) (45-73) % Lymph % (Auto) (20-40) % [place] % (Auto) (2-11) % Eos % (Auto) (0-4) % Baso % (Auto) (0-2) % Lymph # (Auto) (1.2-4.9) X10*3/uL [place] # (Auto) (0.1-1.2) X10*3/uL Eos # (Auto) (0.0-0.4) X10*3/uL Baso # (Auto) (0.0-0.2) X10*3/uL Abs Immat Gran (auto) (0.00-0.03) X10*3/uL Absolute Neuts (auto) (2.0-8.3) X10*3/uL Absolute Nucleated RBC (0.0-0.012) X10*3/uL Nucleated RBC % (auto) (0.0-0.2) /100WBC Smear Tech's Comments PT (10.8-13.0) SEC INR (0.9-1.1) APTT (24.1-38.0) SEC Sodium (135-145) mmol/L Potassium (3.3-5.1) mmol/L Chloride (96-108) mmol/L Carbon Dioxide (22-29) mmol/L Anion Gap (12-20) BUN (9-16) mg/dL Creatinine (0.5-1.4) mg/dL Estim Creat Clear Calc Estimated GFR POC Glucose (60-115) mg/dL Random Glucose (60-115) mg/dL Lactic Acid (0.5-2.0) mmol/L Calcium (8.4-10.2) mg/dL Magnesium (1.6-2.6) mg/dL Total Bilirubin (0.0-1.0) mg/dL Direct Bilirubin (0.0-0.5) mg/dL AST (5-37) U/L ALT (0-40) U/L Alkaline Phosphatase (39-117) U/L Ammonia (13-55) umol/L Total Creatine Kinase (38-174) U/L Troponin I High Sens (<3.5-35.0) ng/L Total Protein (6.5-8.0) g/dL Albumin (3.5-5.0) g/dL TSH (0.32-4.0) uIU/mL Urine Color Urine Appearance Urine pH (5.0-8.0) Ur Specific [place] (1.005-1.025) Urine Protein (NEG-TRACE) MG/DL Urine Glucose (UA) (NEG) MG/DL Urine Ketones (NEG) MG/DL Urine Blood (NEG) Urine Nitrite (NEG) Ur Leukocyte Esterase (NEG) Urine RBC (0) /HPF Urine WBC (0-4) /HPF Urine WBC Clumps Ur Squamous Epith Cells /LPF Urine Bacteria /LPF Urine Opiates Screen Not Detected (Not Detect) Ur Barbiturates Screen Not Detected (Not Detect) Ur Phencyclidine Scrn Not Detected (Not Detect) Ur Amphetamines Screen Not Detected (Not Detect) U Benzodiazepines Scrn Not Detected (Not Detect) Urine Cocaine Screen Not Detected (Not Detect) U Marijuana (THC) Screen Not Detected (Not Detect) Ethyl Alcohol mg/dL Imaging Data CT scan of brain for stroke: Attestation: I personally reviewed and interpreted this imaging study as follows: Radiologist's impression: FINDINGS: There is no acute intra-axial, extra-axial bleed, masses, collection or midline shift. There is moderate hypodensity in the mid neftali region on axial image 10/3 suspicious for ischemia. Differential diagnosis includes small vessel disease. In addition there is hypodensity seen in the left posterior parietal lobe deep white matter adjacent to the occipital horn likely old infarct. The lateral ventricles are symmetrical but enlarged. There is diffuse periventricular hypodensity suggestive of diffuse chronic small vessel ischemic changes. The calvarium appears intact. There is no pneumocephalus or orbital emphysema. The visualized sinuses and middle ears and mastoid air cells show no significant mucosal thickening. There are no air-fluid levels. CT/CT head for stroke IMPRESSION: Moderate hypodensity in the mid neftali region suspicious for edema or ischemia. There are no previous exam at the level of comparison. There is moderate cerebral volume loss with extensive bilateral periventricular small vessel microangiopathy. 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 This critical result was discussed with Suresh Buitrago at 10:15 a.m. It was ascertained that the content and urgency of the report was understood at the time of direct communication. MRI of brain without contrast for stroke: Attestation: I personally reviewed and interpreted this imaging study as follows: Radiologist's impression: FINDINGS: There is no hydrocephalus, extra-axial surface collection, or herniation. There are T2 signal changes throughout the supratentorial white matter and central neftali, likely moderate to severe chronic microangiopathy. 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 The major flow voids at the skull base are preserved. There is no acute infarct on diffusion-weighted imaging. There is no intracranial hemorrhage on the gradient recalled echo acquisition. Punctate focus of chronic hemosiderin staining within the left temporal lobe. The midline structures are normal. The cerebellar tonsils are normally positioned. The cerebellum and brainstem are normal. The craniocervical junction is normal. Osseous marrow signal intensity is homogenous. The visualized soft tissues are unremarkable. Moderate mucosal thickening within the left maxillary sinus. MR/MR head/brain wo con IMPRESSION: - No acute intracranial findings. No acute infarcts. - There are T2 signal changes throughout the supratentorial white matter and central neftali, likely moderate to severe chronic microangiopathy. 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 - Global cerebral volume loss. ECG Data ECG #1: Attestation: I personally reviewed and interpreted this ECG as follows: ECG interpretation date: 07/24/20 ECG interpretation time: 10:13 Interpretation: Sinus tachycardia with a ventricular rate of 107 with a normal MA interval normal QRS duration normal QT/QTC interval. No acute ischemic changes are noted. Similar compared to prior EKG 11/09/2014 Critical Care Time Critical Care Time Critical Care Time: Yes Total Critical Care Time: 60 Attestation: I personally attest to this time spent taking care of the patient Discharge Plan Discharge Clinical Impression: Encephalopathy, Sepsis, Renal failure, Chronic hyponatremia, Acute alteration in mental status, Acute hyperkalemia, UTI (urinary tract infection) Patient Disposition: Admitted As Inpatient
[2020-07-24 10:19] LABS: Glucose, Whole Blood 151 mg/dL (60-115)
--- NOTE | 2020-07-24 10:35 | PC.NURSE ---
upon arrival pt to ct- md to geovanni pt- pt has notable dried blood in his mouth with an abrasion on his tongue
[2020-07-24 10:53] LABS: INTERNATIONAL NORM RATIO 0.9 (0.9-1.1); Prothrombin Time 10.8 SEC (10.8-13.0)
[2020-07-24 10:54] LABS: Basophils Percent Auto 0.1 % (0-2); Eosinophils Percent Auto 0.2 % (0-4); Hematocrit 34.4 % (42-52); Hemoglobin 11.8 g/dl (14.0-18.0); Imm Gran Abs Auto 0.41 X10*3/uL (0.00-0.03); Imm Gran Pct Auto 1.9 % (0.0-0.4); Lymphocytes Absolute Auto 0.2 X10*3/uL (1.2-4.9); Lymphocytes Percent Auto 1.1 % (20-40); MANUAL DIFF FLAG SCAN; Mean Corpuscular HGB Conc 34.3 g/dl (31.0-36.0); Mean Corpuscular Hemoglobin 30.2 pg (27.0-33.0); Mean Platelet Volume 8.7 fL (9.4-12.4); Monocytes Absolute Auto 1.8 X10*3/uL (0.1-1.2); Monocytes Percent Auto 8.2 % (2-11); Neutrophils Absolute Auto 19.5 X10*3/uL (2.0-8.3); Neutrophils Percent Auto 88.5 % (45-73); Platelet Count 229 X10*3/uL (160-400); Red Blood Count 3.91 X10*6/uL (4.60-5.80); Red Cell Distribution Width 16.2 % (11.0-16.0); SCAN SMEAR FLAG 1
[2020-07-24 10:55] LABS: Partial Thromboplastin Time 33.7 SEC (24.1-38.0)
[2020-07-24 11:06] LABS: Ethanol < 10 mg/dL
[2020-07-24 11:14] LABS: SLIDE REVIEW VERIFIED
[2020-07-24 11:17] LABS: Troponin-I High Sensitivity 22.9 ng/L (<3.5-35.0)
[2020-07-24 11:19] LABS: Ammonia 30 umol/L (13-55)
[2020-07-24 11:26] LABS: Alanine Aminotransferase 18 U/L (0-40); Albumin Level 3.6 g/dL (3.5-5.0); Alkaline Phosphatase 96 U/L (39-117); Anion Gap 16 (12-20); Aspartate Amino Transferase 19 U/L (5-37); Bilirubin Direct 0.2 mg/dL (0.0-0.5); Bilirubin Total 0.5 mg/dL (0.0-1.0); Blood Urea Nitrogen 34 mg/dL (9-16); Calcium 8.5 mg/dL (8.4-10.2); Carbon Dioxide 15 mmol/L (22-29); Chloride 103 mmol/L (96-108); Creatinine Clr Calc Pharmacy 30.1; Estimated Glomerular Filt Rate 38; Glucose Random 165 mg/dL (60-115); Magnesium 2.1 mg/dL (1.6-2.6); Sodium 128 mmol/L (135-145); Total Protein 6.2 g/dL (6.5-8.0)
[2020-07-24 11:31] LABS: Thyroid Stimulating Hormone 1.73 uIU/mL (0.32-4.0)
[2020-07-24 11:52] LABS: Stroke Lab Use COMPLETE
[2020-07-24] MEDS: cefTRIAXone sodium 2 GM in 0.9 % Sodium Chloride 50 ML IV (11:52)
[2020-07-24] MEDS: 0.9 % Sodium Chloride 1,608 ML 1608 ML IV (11:54)
[2020-07-24] MEDS: Calcium Gluconate/NaCl,Iso-Osm 2 GM/100 ML PLAST..BAG IV (11:56)
[2020-07-24 11:57] VITALS: BP 151/76; PULSE 91; RESP 18; O2SAT 96
--- NOTE | 2020-07-24 12:08 | PM.NEUROCN ---
History of Present Illness Data of Consult Service Date: 07/24/20 Primary Care Provider: Joe Farris, [facility] 69 years old man with past medical history of diabetes hypertension and alcohol abuse who was brought to hospital with new onset of confusion or difficulty speaking. Onset of symptom was somewhat unclear, either last evening or this morning. ER physician also noted some blood around his mouth. Because of lack of clarity of timing and blood around mouth with possibility of seizure he was not considered a candidate for treatment of acute ischemic stroke. He was unable to provide any meaningful history. Review of Systems Review of Systems: No witnessing of any recent seizure or fall. No recent cold or flu-like illness. [facility] Past Medical History Medical History Carotid artery narrowing COPD (chronic obstructive pulmonary disease) Diabetes ETOH abuse Gross hematuria Hyperlipidemia Hypertension Peripheral arterial disease PVD (peripheral vascular disease) Smoker Toxic myopathy Urological system complication of procedure Family History Family History Father Parkinsons disease Mother Diabetes Surgical History Surgical History H/O heart artery stent Social History Social History Alcohol intake: current Alcohol intake frequency: 0-2 drinks per day Alcohol type: beer Smoking Status: Current every day smoker Advance Directives: Yes Advance Directives Information Provided: No Advance Directives on File: No Meds Allergies Allergy/AdvReac Type Severity Reaction Status Date / Time clams Allergy Severe SWELLING Verified 07/11/20 08:46 Active Medications: Current Medications Generic Name Dose Route Start Last Admin Trade Name Freq PRN Reason Stop Dose Admin Calcium Gluconate 2 gm in 100 mls @ 50 mls/hr 07/24/20 11:27 07/24/20 11:56 Calcium Gluconate IV 07/24/20 13:26 50 mls/hr ONCE ONE Administration Sodium Chloride 1,608 mls @ 1,608 mls/hr 07/24/20 11:28 07/24/20 11:54 Ns 30 ml/kg infuse over 1 hr (1608 ml) 07/24/20 12:27 1,608 mls/hr IV Administration .Q1H ONE Home Medications Medication Instructions Recorded Confirmed Last Taken Type oxybutynin chloride 15 mg mg PO 01/22/20 07/11/20 Unknown History tablet,extended release 24 hr oxybutynin chloride 5 mg mg PO 01/22/20 07/11/20 Unknown History tablet,extended release 24 hr multivitamin 1 tab PO DAILY 02/15/20 07/11/20 Unknown History tamsulosin 0.4 mg capsule mg PO 02/15/20 07/11/20 Unknown History lisinopril 40 mg tablet 40 mg PO DAILY 06/02/20 07/11/20 Unknown History Physical Exam Vital Signs: Vital Signs: Last Vital Signs Temp 100 F 07/24/20 09:57 Pulse 91 07/24/20 11:57 Resp 18 07/24/20 11:57 BP 151/76 H 07/24/20 11:57 Pulse Ox 96 07/24/20 11:57 Body Mass Index 19.6 He was alert and awake somewhat anxious made eye contact and was spontaneously speaking with normal fluency but his language did not make sense. He repeatedly stated male knees. He could not tell me where he was and what had happened. He was unable to name and repeat. There was mild right-sided facial flatness. Visual patel were seemed to be okay. There was no obvious focal arm or leg weakness. Plantars were flat. His overall hygiene was poor. Results Labs CBC & Chem 7: 07/24/20 10:37 07/24/20 10:37 Labs: Short CBC 07/24/20 Range/Units 10:37 WBC 22.0 H (4.8-10.8) X10*3/uL Hgb 11.8 L (14.0-18.0) g/dl Hct 34.4 L (42-52) % Plt Count 229 D (160-400) X10*3/uL BMP 07/24/20 10:37 Sodium 128 L Potassium 6.0 H* Chloride 103 Carbon Dioxide 15 L BUN 34 H D Creatinine 1.78 H Calcium 8.5 Cardiac Enzymes 07/24/20 Range/Units 10:37 Total Creatine Kinase 74 (38-174) U/L Liver Function 07/24/20 Range/Units 10:37 Total Bilirubin 0.5 (0.0-1.0) mg/dL Direct Bilirubin 0.2 (0.0-0.5) mg/dL AST 19 (5-37) U/L ALT 18 (0-40) U/L Alkaline Phosphatase 96 D (39-117) U/L Albumin 3.6 (3.5-5.0) g/dL His noncontrast head CT and MRI of brain were reviewed. There was probably is punctate left parietal restricted area of diffusion suggestive of an acute ischemic lesion. Otherwise significant chronic bilateral cerebral cortex and brainstem ischemic lesions were noted including in brainstem. Significant atrophy was noted. Assessment and Plan (1) Encephalopathy: Problem details: Multifactorial encephalopathy was possibility of seizure. There is is a punctate area of hyperintensity in left parietal area but that would not explain his aphasia. Aphasia is likely explained by previous ischemic injuries. He has significant hematological abnormalities suggestive of renal failure and possibly infection. 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 Typical reasons are hyponatremia or binge alcohol drinking. Status: Acute (4) Multiple cerebral infarctions: Problem details: Baby aspirin with control of other vascular risk factors is recommended. Status: Acute (5) Cerebral atrophy: Status: Acute (6) Cerebral microvascular disease: Status: Acute (7) Multifactorial dementia: Problem details: There is quite significant cerebral atrophy and also ischemic injury to cerebral cortex and brainstem resulting in significant physical and cognitive disability. Status: Acute
--- NOTE | 2020-07-24 12:51 | PC.NURSE ---
Spoke to patient's , updated her on patient's status. Pt's requests we call her and talk to her or her son when we know plan for patient. Will continue to monitor.
[2020-07-24 15:01] LABS: Glucose Urine UA NEG (NEG); Leukocyte Esterase Urine 2+ (NEG); Nitrite Urine POS (NEG); PH 6.5 (5.0-8.0); UACC Culture Trigger YES; Urine Blood 1+ (NEG); Urine Ketones NEG (NEG); Urine Protein TRACE MG/DL (NEG-TRACE)
[2020-07-24 15:06] LABS: Appearance Urine HAZY; Color Urine YELLOW
[2020-07-24 15:24] LABS: Bacteria Urine 2+ /LPF; Squamous Epithelial Cell Urine TRACE /LPF; WBC Clumps Urine NOTED; WBC Urine 30-49 /HPF (0-4)
[2020-07-24 15:25] VITALS: BP 173/83; PULSE 107; RESP 26; TEMP 36.8; O2SAT 93
[2020-07-24 15:33] LABS: Amphetamine Screen Urine Not Detected (Not Detect); Barbiturates, Urine Not Detected (Not Detect); Benzodiazepines Screen Urine Not Detected (Not Detect); Cannabinoid Screen Urine Not Detected (Not Detect); Cocaine Screen Urine Not Detected (Not Detect); Opiate Screen Urine Not Detected (Not Detect); Phencyclidine Screen Urine Not Detected (Not Detect)
--- NOTE | 2020-07-24 15:53 | P.PNIM_ITS ---
Subjective Subjective Date of Service: 07/24/20 Interval History: rrative: 69-year-old male with a past medical history of hypertension, diabetes, hyperlipidemia, BPH, bilateral lower extremity arterial stent placement currently on Plavix last took at 4pm yesterday presenting to the ED via EMS after his found him at approximately 8:30-9am with altered mental status mumbling his words not making any sense and unable to figure out how to urinate on his own. Although initially from EMS report they reported that this was unknown well time and patient woke up with this. The reports that last night around 23:00 that the patient was at his normal baseline although he was complaining of being cold therefore she gave him his electric blanket then this morning when he woke up she noticed he went down the stairs and he poured his own coffee and he appeared to be reading the paper she went upstairs to do some things and she came back downstairs at approximately 08:30- 9am. And he was mumbling his words unable to figure out how to urinate she was trying to help him then she realized that she needed to call EMS. MD complaint: altered mental status Onset (ago): unknown (Initially EMS reported a known well time that the patient woke up with this per is report although reports this started around 8:30/09:00 this morning) Timing confirmed by: spouse ( for Carla) Severity: severe Consistency of symptoms: constant Last beer was 6pm yesterday. He had roughly 6 beers yesterday. Physical Exam Vital Signs: Vital Signs: Last Vital Signs Temp 98.3 F 07/24/20 15:25 Pulse 107 H 07/24/20 15:25 Resp 26 H 07/24/20 15:25 BP 173/83 H 07/24/20 15:25 Pulse Ox 93 07/24/20 15:25 Body Mass Index 19.6 Objective Data Current Medications Generic Name Dose Route Start Last Admin Trade Name Freq PRN Reason Stop Dose Admin Thiamine HCl 500 mg/ Sodium 105 mls @ 210 mls/hr 07/24/20 16:00 Chloride IV Q8H [facility] Ceftriaxone Sodium 1 gm/ 50 mls @ 100 mls/hr 07/24/20 16:00 Sodium Chloride IV Q24H [facility] Labs CBC & Chem 7: 07/24/20 10:37 07/24/20 10:37
--- NOTE | 2020-07-24 16:03 | PM.IMHP ---
History of Present Illness Date of Service: 07/24/20 Chief Complaint: altered mental status, aphasia Mr Ashby is a 69 year-old man with PVD, HTN, DM2, BPH, and alcohol abuse who lives at home with his . She found him around 8:30am altered, mumbling his words and not making any sense, and seeming to have difficulty getting to the bathroom to urinate. Last known well time was 11:00pm last night. He was brought in by EMS and found to be alert but disoriented and with severe aphasia. He was noted to have blood on his lips and an abrasion to the left side of his tongue. He was not witnessed to have fallen nor have had shaking movements of his limbs. ED calculated a NIHSS of 6 and Neurology was called urgently. CT of the head showed no intracranial hemorrhage, but there was question of a brainstem edema or ischemia in the mid-neftali. MRI showed chronic microangiopathy and multiple chronic infarcts, but nothing acute. He was seen by the neurologist and the aphasia was attributed to the chronic lesions. By the time I saw him, his speech was improved, though he still had some word-finding difficulties and was completely amnestic to the events of this morning. He admits to drinking 1 or 2 boxes of beer a day but denies at this is a problem. He denies history of alcohol withdrawal. He was also noted to be septic, with leukocytosis and tachycardia. He had pyuria and nitrituri,a and was given a dose of ceftriaxone for suspected UTI. He also was found to have AI and hyperkalemia and was given calcium gluconate and SPS, along with 30 mL/kg of NS. There were no EKG changes from the hyperkalemia. High-sensitivity troponin was mildly elevated. BAL was <10. He states that he feels fine and insists he is well enough to go home. I spoke to the patient's Chelle. He has drank alcohol daily for as long as she has known him, with only a 1-year hiatus in the . He drinks 6-8 cans of beer daily in the fall, winter, and spring; in the summer, this increases to 8-12 cans daily. He doesn't have a history of withdrawal or other seizures, but when he drinks less, he becomes tremulous. In fact, his is wondering whether he is developing Parkinson's disease, given a family history of this. She has tried to bring up his alcohol abuse history to his doctors, but he cuts her off when she does. Review of Systems Review of Systems: unreliable due to patient denial Yes Other [facility] Medical History (Updated 07/24/20 @ 16:30 by Annemarie Renteria MD) BPH (benign prostatic hyperplasia) Carotid artery narrowing COPD (chronic obstructive pulmonary disease) Diabetes ETOH abuse Gross hematuria Hyperlipidemia Hypertension Peripheral arterial disease Presence of arterial stent PVD (peripheral vascular disease) Smoker Toxic myopathy Urological system complication of procedure Family History Father Parkinsons disease Mother Diabetes Social History Alcohol intake: current Alcohol intake frequency: 0-2 drinks per day Alcohol type: beer Smoking Status: Current every day smoker Advance Directives: Yes Advance Directives Information Provided: No Advance Directives on File: No Meds Allergies Allergy/AdvReac Type Severity Reaction Status Date / Time clams Allergy Severe SWELLING Verified 07/11/20 08:46 Active Medications: Current Medications Generic Name Dose Route Start Last Admin Trade Name Freq PRN Reason Stop Dose Admin Thiamine HCl 500 mg/ Sodium 105 mls @ 210 mls/hr 07/24/20 16:00 Chloride IV Q8H [facility] Ceftriaxone Sodium 1 gm/ 50 mls @ 100 mls/hr 07/25/20 12:00 Sodium Chloride IV Q24H [facility] Home Medications Medication Instructions Recorded Confirmed Last Taken Type oxybutynin chloride 15 mg mg PO 01/22/20 07/11/20 Unknown History tablet,extended release 24 hr oxybutynin chloride 5 mg mg PO 01/22/20 07/11/20 Unknown History tablet,extended release 24 hr multivitamin 1 tab PO DAILY 02/15/20 07/11/20 Unknown History tamsulosin 0.4 mg capsule mg PO 02/15/20 07/11/20 Unknown History lisinopril 40 mg tablet 40 mg PO DAILY 06/02/20 07/11/20 Unknown History Physical Exam Vital Signs and Narrative: Vital Signs: Last Vital Signs Temp 98.3 F 07/24/20 15:25 Pulse 107 H 07/24/20 15:25 Resp 26 H 07/24/20 15:25 BP 173/83 H 07/24/20 15:25 Pulse Ox 93 07/24/20 15:25 Body Mass Index 19.6 Gen: disheveled HEENT: sclera anicteric, dry mucous membranes, poor dentition Neck: supple no adenopathy Lungs: clear to auscultation bilaterally Heart: regular rate and rhythm, tachycardic, no murmurs Abd: soft, non-tender, non-distended Ext: no edema Skin: warm/well-perfused, multiple bruises Neuro: alert, oriented to self/place/date/month but not year, some word-finding difficulties, no facial droop, no focal weakness, impaired left [id number] testing Psych: impaired insight Results Labs CBC and Chem 7: 07/24/20 10:37 07/24/20 15:48 Labs: Laboratory Results - last 24 hr 07/24/20 07/24/20 07/24/20 10:13 10:37 10:37 MCV 88.0 MCH 30.2 MCHC 34.3 RDW 16.2 H Plt Count 229 D MPV 8.7 L Immature Gran % (Auto) 1.9 H Neut % (Auto) 88.5 H Lymph % (Auto) 1.1 L [place] % (Auto) 8.2 Eos % (Auto) 0.2 Baso % (Auto) 0.1 Lymph # (Auto) 0.2 L [place] # (Auto) 1.8 H Eos # (Auto) 0.0 Baso # (Auto) 0.0 Abs Immat Gran (auto) 0.41 H Absolute Neuts (auto) 19.5 H Absolute Nucleated RBC 0.000 Nucleated RBC % (auto) 0.0 Smear Tech's Comments VERIFIED PT 10.8 INR 0.9 APTT 33.7 Anion Gap Estim Creat Clear Calc Estimated GFR POC Glucose 151 H Random Glucose Lactic Acid Calcium Magnesium Total Bilirubin Direct Bilirubin AST ALT Alkaline Phosphatase Ammonia Total Creatine Kinase Troponin I High Sens Total Protein Albumin TSH Urine Color Urine Appearance Urine pH Ur Specific [place] Urine Protein Urine Glucose (UA) Urine Ketones Urine Blood Urine Nitrite Ur Leukocyte Esterase Urine RBC Urine WBC Urine WBC Clumps Ur Squamous Epith Cells Urine Bacteria Urine Opiates Screen Ur Barbiturates Screen Ur Phencyclidine Scrn Ur Amphetamines Screen U Benzodiazepines Scrn Urine Cocaine Screen U Marijuana (THC) Screen Ethyl Alcohol 07/24/20 07/24/20 07/24/20 10:37 10:37 10:37 MCV MCH MCHC RDW Plt Count MPV Immature Gran % (Auto) Neut % (Auto) Lymph % (Auto) [place] % (Auto) Eos % (Auto) Baso % (Auto) Lymph # (Auto) [place] # (Auto) Eos # (Auto) Baso # (Auto) Abs Immat Gran (auto) Absolute Neuts (auto) Absolute Nucleated RBC Nucleated RBC % (auto) Smear Tech's Comments PT INR APTT Anion Gap 16 Estim Creat Clear Calc 30.1 Estimated GFR 38 POC Glucose Random Glucose 165 H Lactic Acid Calcium 8.5 Magnesium 2.1 Total Bilirubin 0.5 Direct Bilirubin 0.2 AST 19 ALT 18 Alkaline Phosphatase 96 D Ammonia 30 Total Creatine Kinase 74 Troponin I High Sens 22.9 Total Protein 6.2 L Albumin 3.6 TSH 1.73 Urine Color Urine Appearance Urine pH Ur Specific [place] Urine Protein Urine Glucose (UA) Urine Ketones Urine Blood Urine Nitrite Ur Leukocyte Esterase Urine RBC Urine WBC Urine WBC Clumps Ur Squamous Epith Cells Urine Bacteria Urine Opiates Screen Ur Barbiturates Screen Ur Phencyclidine Scrn Ur Amphetamines Screen U Benzodiazepines Scrn Urine Cocaine Screen U Marijuana (THC) Screen Ethyl Alcohol 07/24/20 07/24/20 07/24/20 10:37 10:37 14:45 MCV MCH MCHC RDW Plt Count MPV Immature Gran % (Auto) Neut % (Auto) Lymph % (Auto) [place] % (Auto) Eos % (Auto) Baso % (Auto) Lymph # (Auto) [place] # (Auto) Eos # (Auto) Baso # (Auto) Abs Immat Gran (auto) Absolute Neuts (auto) Absolute Nucleated RBC Nucleated RBC % (auto) Smear Tech's Comments PT INR APTT Anion Gap Estim Creat Clear Calc Estimated GFR POC Glucose Random Glucose Lactic Acid 2.0 Calcium Magnesium Total Bilirubin Direct Bilirubin AST ALT Alkaline Phosphatase [place]mon[place] Total Creatine Kinase Troponin I High Sens Total Protein Albumin TSH Urine Color YELLOW Urine Appearance HAZY Urine pH 6.5 Ur Specific [place] 1.010 Urine Protein TRACE Urine Glucose (UA) NEG Urine Ketones NEG Urine Blood 1+ H Urine Nitrite POS H Ur Leukocyte Esterase 2+ H Urine RBC 5-9 H Urine WBC 30-49 H Urine WBC Clumps NOTED Ur Squamous Epith Cells TRACE Urine Bacteria 2+ Urine Opiates Screen Ur Barbiturates Screen Ur Phencyclidine Scrn Ur Amphetamines Screen U Benzodiazepines Scrn Urine Cocaine Screen U Marijuana (THC) Screen Ethyl Alcohol < 10 07/24/20 14:46 MCV MCH MCHC RDW Plt Count MPV Immature Gran % (Auto) Neut % (Auto) Lymph % (Auto) [place] % (Auto) Eos % (Auto) Baso % (Auto) Lymph # (Auto) [place] # (Auto) Eos # (Auto) Baso # (Auto) Abs Immat Gran (auto) Absolute Neuts (auto) Absolute Nucleated RBC Nucleated RBC % (auto) Smear Tech's Comments PT INR APTT Anion Gap Estim Creat Clear Calc Estimated GFR POC Glucose Random Glucose Lactic Acid Calcium Magnesium Total Bilirubin Direct Bilirubin AST ALT Alkaline Phosphatase Ammonia Total Creatine Kinase Troponin I High Sens Total Protein Albumin TSH Urine Color Urine Appearance Urine pH Ur Specific [place] Urine Protein Urine Glucose (UA) Urine Ketones Urine Blood Urine Nitrite Ur Leukocyte Esterase Urine RBC Urine WBC Urine WBC Clumps Ur Squamous Epith Cells Urine Bacteria Urine Opiates Screen Not Detected Ur Barbiturates Screen Not Detected Ur Phencyclidine Scrn Not Detected Ur Amphetamines Screen Not Detected U Benzodiazepines Scrn Not Detected Urine Cocaine Screen Not Detected U Marijuana (THC) Screen Not Detected Ethyl Alcohol Imaging Radiologist's Impressions: Impressions Head CT 07/24/20 09:56 IMPRESSION: Moderate hypodensity in the mid neftali region suspicious for edema or ischemia. There are no previous exam at the level of comparison. There is moderate cerebral volume loss with extensive bilateral periventricular small vessel microangiopathy. 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 This critical result was discussed with Suresh Buitrago at 10:15 a.m. It was ascertained that the content and urgency of the report was understood at the time of direct communication. Chest X-Ray 07/24/20 09:57 IMPRESSION: No acute cardiopulmonary disease demonstrated. Brain MRI 07/24/20 10:15 IMPRESSION: - No acute intracranial findings. No acute infarcts. - There are T2 signal changes throughout the supratentorial white matter and central neftali, likely moderate to severe chronic microangiopathy. 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 - Global cerebral volume loss. Assessment and Plan (1) Encephalopathy: Problem details: Multifactorial encephalopathy was possibility of seizure. There is is a punctate area of hyperintensity in left parietal area but that would not explain his aphasia. Aphasia is likely explained by previous ischemic injuries. He has significant hematological abnormalities suggestive of renal failure and possibly infection. 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 Typical reasons are hyponatremia or binge alcohol drinking. Status: Acute (4) Multiple cerebral infarctions: Problem details: Baby aspirin with control of other vascular risk factors is recommended. Status: Acute (5) Cerebral atrophy: Status: Acute (6) Cerebral microvascular disease: Status: Acute (7) Multifactorial dementia: Problem details: There is quite significant cerebral atrophy and also ischemic injury to cerebral cortex and brainstem resulting in significant physical and cognitive disability. Status: Acute 69 year-old man with PVD, HTN, DM2, BPH, and alcohol abuse presenting with encephalopathy, aphasia [resolving], sepsis, hyperkalemia, and AI. # encephalopathy - suspicion for Wernicke/Korsakoff syndrome. will admit to [facility] and treat with high-dose IV thiamine. # EtOH withdrawal - possible seizure- will check EEG. phenobarbital taper, thiamine, folate, multivitamins; CARE Team counseling. # CPM - per Neuro chronic + related to hypoNa and binge drinking. sobriety is the mainstay of treatment. # multiple chronic cerebral infarctions - likely due to his severe vasculopathy. secondary prevention with ASA + statin ; also on clopidogrel for PVD. # multifactorial dementia. - likely EtOH + vascular # hyperkalemia - no EKG changes, given Ca gluconate + SPS. repeat K improved. # AI/CKD3 - baseline Cr around 1.4. likely prerenal. got 30 cc/kg NS and SCr already improving; monitor BMP + avoid nephrotoxins. # hypoNa - chronic and fairly mild; seems to be around his baseline; likely due to EtOH. will fluid-restrict and monitor BMP. # sepsis # UTI - continue ceftriaxone, follow UCx + BCx. # HTN - continue metoprolol + amlodipine + lisinopril. # DM2, A1c 6.4 [07/20/20] - correction-dose lispro. # PVD s/p stenting - continue clopidogrel + ASA + statin. # prostatism - continue finasteride + tamsulosin. scheduled for cystoscopy next week with Dr Golden due to hematuria. # COPD - prn nebs. # tobacco abuse - NRT. # VTE ppx - LMWH. # code - full.
[2020-07-24 16:21] LABS: Anion Gap 19 (12-20); Blood Urea Nitrogen 33 mg/dL (9-16); Calcium 8.6 mg/dL (8.4-10.2); Carbon Dioxide 12 mmol/L (22-29); Chloride 105 mmol/L (96-108); Creatinine Clr Calc Pharmacy 34.8; Estimated Glomerular Filt Rate 45; Glucose Random 144 mg/dL (60-115); Potassium 5.3 mmol/L (3.3-5.1); Sodium 131 mmol/L (135-145)
[2020-07-24 16:29] LABS: Troponin-I High Sensitivity 26.2 ng/L (<3.5-35.0)
[2020-07-24] MEDS: PHENobarbitaL sodium 130 MG/ML VIAL 171 MG IM (17:22)
[2020-07-24] MEDS: Thiamine HCL 500 MG in 0.9 % Sodium Chloride 100 ML 210 MG IV (17:24)
[2020-07-24] MEDS: Sodium Polystyrene Sulfon/Sorb 15 GM/60 ML ORAL.SUSP 30 GM PO (17:27)
[2020-07-24] MEDS: Enoxaparin Sodium 40 MG/0.4 ML SYRINGE SUBCUT (17:28)
[2020-07-24 18:10] LABS: COVID-19 Test Negative (Negative); IDNOW Serial# 9DD0AD1C
--- NOTE | 2020-07-24 18:16 | MHC.CARE ---
CARE team consult received for pt who has been medically admitted (boarding in ED) for encephalopathy, with concerns re: shelter, daily alcohol use. This inspector automatic typewriter reviewed pt's chart. Pt's mental status is altered and he has been started on treatment for a UTI and alcohol withdrawal (phenobarb protocol). Request made that pt receive a rapid covid test while in ED to determine whether full PPE would be necessary for meeting with pt. This inspector automatic typewriter spoke with ED rn relief charge and sent a [employer] message to ordering Physician to confirm receipt and indicate plan for consultation once pt's condition is improved. CARE team will review daily notes to track when pt will be appropriate for consultation and a member of the Recovery Support Team will be dispatched. Please contact CARE team at ext [phone] with questions or additional concerns.
[2020-07-24] MEDS: PHENobarbitaL sodium 130 MG/ML VIAL 129 MG IM ×2 (19:21→22:40)
[2020-07-24] MEDS: Nicotine 21 MG PATCH.TD24 TRANSDERMA (19:22)
[2020-07-24 19:34] VITALS: BP 164/82; PULSE 112; RESP 23; TEMP 37; O2SAT 95
[2020-07-24 20:31] VITALS: BP 171/82; PULSE 100; RESP 20; TEMP 37.7; O2SAT 97
[2020-07-24 20:50] LABS: Glucose, Whole Blood 349 mg/dL (60-115)
[2020-07-24] MEDS: Insulin Lispro 100 UNIT/ML 3 ML VIAL SUBCUT (22:40)
[2020-07-24] MEDS: Atorvastatin Calcium 80 MG TABLET PO (22:41)
[2020-07-24] MEDS: Tamsulosin HCL 0.4 MG CAPSULE PO (22:41)
[2020-07-24 23:15] VITALS: BP 143/67; PULSE 101; RESP 18; TEMP 37.6; O2SAT 97
[2020-07-25] MEDS: 0.9 % Sodium Chloride Flush 3 ML SYRINGE IVFLUSH ×4 (00:41→23:45)
[2020-07-25] MEDS: Thiamine HCL 500 MG in 0.9 % Sodium Chloride 100 ML 210 MG IV ×3 (00:41→17:19)
[2020-07-25 03:23] VITALS: BP 122/57; PULSE 108; RESP 18; TEMP 37.6; O2SAT 98
[2020-07-25 06:44] LABS: Basophils Absolute Auto 0.1 X10*3/uL (0.0-0.2); Basophils Percent Auto 0.3 % (0-2); Eosinophils Absolute Auto 0.1 X10*3/uL (0.0-0.4); Eosinophils Percent Auto 0.8 % (0-4); Hematocrit 26.3 % (42-52); Hemoglobin 9.1 g/dl (14.0-18.0); Imm Gran Abs Auto 0.15 X10*3/uL (0.00-0.03); Imm Gran Pct Auto 0.8 % (0.0-0.4); Lymphocytes Absolute Auto 0.6 X10*3/uL (1.2-4.9); Lymphocytes Percent Auto 3.4 % (20-40); MANUAL DIFF FLAG SCAN; Mean Corpuscular HGB Conc 34.6 g/dl (31.0-36.0); Mean Corpuscular Volume 86.8 fL (80-98); Mean Platelet Volume 9.4 fL (9.4-12.4); Monocytes Absolute Auto 2.3 X10*3/uL (0.1-1.2); Monocytes Percent Auto 12.7 % (2-11); Platelet Count 200 X10*3/uL (160-400); Red Blood Count 3.03 X10*6/uL (4.60-5.80); Red Cell Distribution Width 16.2 % (11.0-16.0); SCAN SMEAR FLAG 1; White Blood Count 18.3 X10*3/uL (4.8-10.8)
[2020-07-25 07:06] VITALS: BP 105/58; PULSE 78; RESP 20; TEMP 36.1; O2SAT 95
[2020-07-25 07:13] LABS: SLIDE REVIEW VERIFIED
[2020-07-25 07:14] LABS: Alanine Aminotransferase 14 U/L (0-40); Alkaline Phosphatase 67 U/L (39-117); Anion Gap 14 (12-20); Aspartate Amino Transferase 19 U/L (5-37); Bilirubin Total 0.2 mg/dL (0.0-1.0); Blood Urea Nitrogen 38 mg/dL (9-16); Carbon Dioxide 15 mmol/L (22-29); Chloride 105 mmol/L (96-108); Creatinine Clr Calc Pharmacy 30.8; Estimated Glomerular Filt Rate 39; Glucose Random 99 mg/dL (60-115); Magnesium 1.9 mg/dL (1.6-2.6); Sodium 129 mmol/L (135-145)
[2020-07-25 07:21] LABS: Glucose, Whole Blood 102 mg/dL (60-115)
[2020-07-25 07:22] LABS: Albumin Level 2.6 g/dL (3.5-5.0); Total Protein 4.6 g/dL (6.5-8.0)
[2020-07-25] MEDS: PHENobarbitaL 15 MG TABLET 45 MG PO ×2 (10:15→23:45)
[2020-07-25] MEDS: Finasteride 5 MG TABLET PO (10:15)
[2020-07-25] MEDS: Folic Acid 1 MG TABLET PO (10:16)
[2020-07-25] MEDS: Metoprolol Succinate ER 50 MG TAB.ER.24H PO (10:16)
[2020-07-25] MEDS: amLODIPine Besylate 10 MG TABLET PO (10:16)
[2020-07-25] MEDS: Aspirin 81 MG TAB.CHEW PO (10:16)
[2020-07-25] MEDS: Multivitamin TABLET 1 TAB PO (10:16)
[2020-07-25] MEDS: Clopidogrel Bisulfate 75 MG TABLET PO (10:16)
[2020-07-25] MEDS: Nicotine 14 MG PATCH.TD24 TRANSDERMA (10:17)
[2020-07-25 11:00] VITALS: BP 150/69; PULSE 95; RESP 20; TEMP 36; O2SAT 97
--- NOTE | 2020-07-25 11:30 | MHC.RECOVSUP ---
Recovery Support note: Patient is a 69 year old Sudanese speaking male who presented to [facility] ED due to altered mental status and was medically admitted. This financial underwriter met with patient in 450-1 to discuss his alcohol use. Patient reports that he does not feel his drinking is problematic at this time. Patient reports that he has 3-4 beers a day and that he does not drink liquor. Patient reports that his drinking does not get in the way of his day to day life and that it is just a part of his day. This financial underwriter discussed with patient the negative health consequences of drinking and pointed out how daily drinking in the amounts that he is doing could lead to problems as he gets older and that it may have played a role in his hospital admission. Patient acknowledged and stated that he will consider reducing how much he drinks. Patient plans to start drinking earlier in the day and to stop drinking sooner so that he does not drink as much each day. Discussed recovery supports such as AA and intensive outpatient programs with patient. Patient was familiar with AA however reports he does not feel it is necessary at this time as he feels he is in control of his drinking and that he can reduce his consumption without issue. Informed patient that there is help and support available if patient finds it difficult to reduce his alcohol consumption. Informed patient that staff can return to provide support and resources regarding alcohol cessation if he changes his mind later and to inform his nurse if he would like this. Discussed case with patient's RN, Bonita. Recovery Support Team available at patient's request.
--- NOTE | 2020-07-25 11:53 | P.PNIM_ITS ---
Subjective Subjective Date of Service: 07/25/20 Interval History: seen and examined this AM reports he wants to go home reports he drinks 3-4 beer daily and never any more reports he lives with his and shes his HCP Physical Exam Vital Signs: Vital Signs: Last Vital Signs Temp 96.8 F 07/25/20 11:00 Pulse 95 07/25/20 11:00 Resp 20 07/25/20 11:00 BP 150/69 H 07/25/20 11:00 Pulse Ox 97 07/25/20 11:00 Body Mass Index 19.6 Const: Other: General - no acute distress, appears comfortable Cardiovascular - regular rate and rhythm, S1-S2 Lungs - normal respiratory effort, clear to auscultation bilaterally, no wheezing Abdomen - soft, nontender, no rebound or guarding Extremities - no edema bilaterally Neuro - non-focal Psych - insight impaired Objective Data Current Medications Generic Name Dose Route Start Last Admin Trade Name Freq PRN Reason Stop Dose Admin Acetaminophen 650 mg 07/24/20 16:25 Acetaminophen 325 Mg Tablet PO Q6H PRN Pain, Mild (Pain Scale 1-3) Albuterol/Ipratropium 3 ml 07/24/20 16:10 Albuterol/Iprat 2.5/0.5mg 3 Ml Ampul.Neb INHALE Q4H PRN Shortness of Breath/Wheezing Amlodipine Besylate 10 mg 07/25/20 09:00 07/25/20 10:16 Amlodipine Besylate 10 Mg Tablet PO 10 mg DAILY DARVIN Administration Protocol Aspirin 81 mg 07/25/20 09:00 07/25/20 10:16 Aspirin 81 Mg Tab.Chew PO 81 mg DAILY DARVIN Administration Atorvastatin Calcium 80 mg 07/24/20 21:00 07/24/20 22:41 Atorvastatin Calcium 80 Mg Tablet PO 80 mg BEDTIME DARVIN Administration Clopidogrel Bisulfate 75 mg 07/25/20 09:00 07/25/20 10:16 Clopidogrel Bisulfate 75 Mg Tablet PO 75 mg DAILY DARVIN Administration Enoxaparin Sodium 40 mg 07/24/20 17:00 07/24/20 17:28 Enoxaparin Sodium 40 Mg/0.4 Ml Syringe SUBCUT 40 mg Q24H DARVIN Administration Finasteride 5 mg 07/25/20 09:00 07/25/20 10:15 Finasteride 5 Mg Tablet PO 5 mg DAILY DARVIN Administration Folic Acid 1 mg 07/25/20 09:00 07/25/20 10:16 Folic Acid 1 Mg Tablet PO 1 mg DAILY [facility] Administration Thiamine HCl 500 mg/ Sodium 105 mls @ 210 mls/hr 07/24/20 16:00 07/25/20 10:59 Chloride IV Infused Q8H [facility] Infusion Ceftriaxone Sodium 1 gm/ 50 mls @ 100 mls/hr 07/25/20 12:00 Sodium Chloride IV Q24H [facility] Insulin Human Lispro 0 unit 07/24/20 16:30 07/25/20 07:52 Insulin Lispro 100 Unit/Ml 3 Ml Vial SUBCUT Not Given QIDACHS [facility] Protocol Lisinopril 40 mg 07/25/20 09:00 07/25/20 10:23 Lisinopril 40 Mg Tablet PO Not Given DAILY [facility] Protocol Medication 1 each 07/24/20 16:30 No Benzodiazepines MISCELLANE DAILY [facility] Metoprolol Succinate 50 mg 07/25/20 09:00 07/25/20 10:16 Metoprolol Succinate Er 50 Mg Tab.Er.24h PO 50 mg DAILY [facility] Administration Protocol Multivitamins/Vitamin C 1 tab 07/25/20 09:00 07/25/20 10:16 Multivitamin Tablet PO 1 tab DAILY [facility] Administration Nicotine 14 mg 07/24/20 16:10 07/25/20 10:17 Nicotine 14 Mg Patch.Td24 TRANSDERMA 14 mg DAILY [facility] Administration Ondansetron HCl 4 mg 07/24/20 16:25 Ondansetron Hcl 4 Mg/2 Ml Vial IVPUSH Q8H PRN Nausea and Vomiting Phenobarbital 15 mg 07/29/20 09:00 Phenobarbital 15 Mg Tablet PO 07/30/20 09:01 DAILY [facility] Protocol Phenobarbital 45 mg 07/25/20 09:00 07/25/20 10:15 Phenobarbital 15 Mg Tablet PO 07/26/20 21:01 45 mg BID [facility] Administration Protocol Phenobarbital 15 mg 07/27/20 09:00 Phenobarbital 15 Mg Tablet PO 07/28/20 21:01 BID [facility] Protocol Sodium Chloride 3 ml 07/25/20 00:00 07/25/20 07:52 0.9 % Sodium Chloride Flush 3 Ml Syringe IVFLUSH 3 ml QSHIFT [facility] Administration Tamsulosin HCl 0.4 mg 07/24/20 21:00 07/24/20 22:41 Tamsulosin Hcl 0.4 Mg Capsule PO 0.4 mg BEDTIME [facility] Administration Labs CBC & Chem 7: 07/25/20 05:36 07/25/20 05:36 Microbiology Microbiology Results: Microbiology 07/24/20 14:45 Urine clean catch - Clean Catch Midstream Urine Culture - Preliminary Gram negative eliezer 07/24/20 10:37 Blood - Venous Blood Culture - Preliminary 07/24/20 10:26 Blood - Venous Blood Culture - Preliminary Assessment and Plan (1) UTI (urinary tract infection): Status: Acute Assessment and Plan: This is a 69-year-old male with a past medical history of chronic alcoholism who presents to the hospital with altered mental status and aphasia. He is admitted for further workup. 1. Acute Toxic/Metabolic Encephalopathy multifactorial -- see details below appears to be improving slowly, ? at his baseline -- will need collateral information from this 2. Alcohol abuse and dependendence with acute withdrawal possibly had a seizure prior to arrival continue phenobarb MVI/thiamin(IV high dose)/folate 3. ? Wernicke / Korsakoff syndrome on high dose IV thiamin neuron on board 4. ? [place] myelinolysis chronic per neuro (see notes). alcohol cessatin 5. Sepsis secondary to UTI sepsis improving continue rocephin f/u cx - gram freya rods in the urine 6. Acute Anemia h/h dropped from 11.8/34.4 to 9.1/26.3; repeat a dose now no evidnece of brad bleed check FOBT possibly diulation from IVF 7. 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 Chronic HypoNa monitor Full Code DVT pptx, Lovenox on hold due to anemia, use mechanical
[2020-07-25] MEDS: cefTRIAXone sodium 1 GM in 0.9 % Sodium Chloride 50 ML IV (12:12)
[2020-07-25 12:15] LABS: Glucose, Whole Blood 245 mg/dL (60-115)
[2020-07-25] MEDS: Insulin Lispro 100 UNIT/ML 3 ML VIAL SUBCUT (12:27)
[2020-07-25 12:54] LABS: Hematocrit 25.9 % (42-52)
[2020-07-25 15:33] VITALS: BP 114/63; PULSE 80; RESP 18; TEMP 36.6; O2SAT 97
[2020-07-25 16:43] LABS: Glucose, Whole Blood 99 mg/dL (60-115)
[2020-07-25 19:10] VITALS: BP 161/71; PULSE 82; RESP 20; TEMP 37.1; O2SAT 99
[2020-07-25 21:07] LABS: Glucose, Whole Blood 124 mg/dL (60-115)
[2020-07-25 23:19] VITALS: BP 123/58; PULSE 76; RESP 18; TEMP 36.9; O2SAT 97
[2020-07-25] MEDS: Atorvastatin Calcium 80 MG TABLET PO (23:44)
[2020-07-25] MEDS: Tamsulosin HCL 0.4 MG CAPSULE PO (23:44)
[2020-07-26] VITALS (8 sets, daily range): BP systolic 122–159; BP diastolic 58–82; PULSE 73–86; RESP 18–20; TEMP 36.4–36.9; O2SAT 98–100
[2020-07-26] MEDS: Thiamine HCL 500 MG in 0.9 % Sodium Chloride 100 ML 210 MG IV (02:57)
[2020-07-26 06:24] LABS: Hematocrit 28.8 % (42-52); Hemoglobin 9.7 g/dl (14.0-18.0); Mean Corpuscular HGB Conc 33.7 g/dl (31.0-36.0); Mean Corpuscular Hemoglobin 29.2 pg (27.0-33.0); Mean Corpuscular Volume 86.7 fL (80-98); Mean Platelet Volume 9.3 fL (9.4-12.4); Platelet Count 198 X10*3/uL (160-400); Red Blood Count 3.32 X10*6/uL (4.60-5.80); Red Cell Distribution Width 16.2 % (11.0-16.0)
[2020-07-26 06:41] LABS: Anion Gap 14 (12-20); Blood Urea Nitrogen 45 mg/dL (9-16); Calcium 7.8 mg/dL (8.4-10.2); Carbon Dioxide 15 mmol/L (22-29); Chloride 106 mmol/L (96-108); Creatinine Clr Calc Pharmacy 26.4; Estimated Glomerular Filt Rate 33; Glucose Random 93 mg/dL (60-115); Potassium 4.7 mmol/L (3.3-5.1); Sodium 130 mmol/L (135-145)
[2020-07-26 07:12] LABS: Glucose, Whole Blood 105 mg/dL (60-115)
[2020-07-26] MEDS: 0.9 % Sodium Chloride Flush 3 ML SYRINGE IVFLUSH (07:38)
[2020-07-26] MEDS: Aspirin 81 MG TAB.CHEW PO (09:11)
[2020-07-26] MEDS: Clopidogrel Bisulfate 75 MG TABLET PO (09:11)
[2020-07-26] MEDS: Finasteride 5 MG TABLET PO (09:11)
[2020-07-26] MEDS: amLODIPine Besylate 10 MG TABLET PO (09:11)
[2020-07-26] MEDS: PHENobarbitaL 15 MG TABLET 45 MG PO ×2 (09:11→21:24)
[2020-07-26] MEDS: Multivitamin TABLET 1 TAB PO (09:11)
[2020-07-26] MEDS: lisinopriL 40 MG TABLET PO (09:12)
[2020-07-26] MEDS: Metoprolol Succinate ER 50 MG TAB.ER.24H PO (09:12)
[2020-07-26] MEDS: Folic Acid 1 MG TABLET PO (09:12)
[2020-07-26] MEDS: Nicotine 14 MG PATCH.TD24 TRANSDERMA (09:13)
--- NOTE | 2020-07-26 10:16 | MHC.CM.PN ---
met with pt who lives with his ,pt explins that they had no services prior to admission hcp filed and placed on chart pt named his as his agent pt has own transportaion home and will be seen by care team prior to admission
[2020-07-26 11:15] LABS: Glucose, Whole Blood 339 mg/dL (60-115)
[2020-07-26] MEDS: Insulin Lispro 100 UNIT/ML 3 ML VIAL SUBCUT ×2 (12:03→21:24)
[2020-07-26] MEDS: Sodium Bicarbonate 650 MG TABLET PO (12:03)
[2020-07-26] MEDS: Sodium Bicarbonate 8.4% 150 MEQ in Dextrose 5 % 850 ML 100 MEQ IV (15:12)
--- NOTE | 2020-07-26 15:50 | P.PNIM_ITS ---
Subjective Subjective Date of Service: 07/26/20 Interval History: seen and examined this AM no new complaints denies qureshi, dizziness wants to go home Physical Exam Vital Signs: Vital Signs: Last Vital Signs Temp 97.6 F 07/26/20 15:36 Pulse 73 07/26/20 15:36 Resp 18 07/26/20 15:36 BP 142/82 H 07/26/20 15:36 Pulse Ox 98 07/26/20 15:36 Body Mass Index 19.6 Const: Other: General - no acute distress, appears comfortable Cardiovascular - regular rate and rhythm, S1-S2 Lungs - normal respiratory effort, clear to auscultation bilaterally, no wheezing Abdomen - soft, nontender, no rebound or guarding Extremities - no edema bilaterally Neuro - non-focal Psych - insight impaired Objective Data Current Medications Generic Name Dose Route Start Last Admin Trade Name Freq PRN Reason Stop Dose Admin Acetaminophen 650 mg 07/24/20 16:25 Acetaminophen 325 Mg Tablet PO Q6H PRN Pain, Mild (Pain Scale 1-3) Albuterol/Ipratropium 3 ml 07/24/20 16:10 Albuterol/Iprat 2.5/0.5mg 3 Ml Ampul.Neb INHALE Q4H PRN Shortness of Breath/Wheezing Amlodipine Besylate 10 mg 07/25/20 09:00 07/26/20 09:11 Amlodipine Besylate 10 Mg Tablet PO 10 mg DAILY [facility] Administration Protocol Aspirin 81 mg 07/25/20 09:00 07/26/20 09:11 Aspirin 81 Mg Tab.Chew PO 81 mg DAILY [facility] Administration Atorvastatin Calcium 80 mg 07/24/20 21:00 07/25/20 23:44 Atorvastatin Calcium 80 Mg Tablet PO 80 mg BEDTIME [facility] Administration Clopidogrel Bisulfate 75 mg 07/25/20 09:00 07/26/20 09:11 Clopidogrel Bisulfate 75 Mg Tablet PO 75 mg DAILY [facility] Administration Enoxaparin Sodium 40 mg 07/24/20 17:00 07/24/20 17:28 Enoxaparin Sodium 40 Mg/0.4 Ml Syringe SUBCUT 40 mg Q24H [facility] Administration Finasteride 5 mg 07/25/20 09:00 07/26/20 09:11 Finasteride 5 Mg Tablet PO 5 mg DAILY [facility] Administration Folic Acid 1 mg 07/25/20 09:00 07/26/20 09:12 Folic Acid 1 Mg Tablet PO 1 mg DAILY [facility] Administration Thiamine HCl 500 mg/ Sodium 105 mls @ 210 mls/hr 07/25/20 17:00 07/26/20 10:3 1 Chloride IV Not Given Q8H [facility] Sodium Bicarbonate 150 meq/ 1,000 mls @ 100 mls/hr 07/26/20 13:00 07/26/20 15:12 Dextrose IV 07/27/20 08:59 100 mls/hr .Q10H [facility] Administration Ceftriaxone Sodium 1 gm/ 50 mls @ 100 mls/hr 07/26/20 16:00 Sodium Chloride IV Q24H [facility] Insulin Human Lispro 0 unit 07/24/20 16:30 07/26/20 12:03 Insulin Lispro 100 Unit/Ml 3 Ml Vial SUBCUT 8 unit QIDACHS [facility] Administration Protocol Lisinopril 40 mg 07/25/20 09:00 07/26/20 09:12 Lisinopril 40 Mg Tablet PO 40 mg DAILY [facility] Administration Protocol Medication 1 each 07/24/20 16:30 No Benzodiazepines MISCELLANE DAILY [facility] Metoprolol Succinate 50 mg 07/25/20 09:00 07/26/20 09:12 Metoprolol Succinate Er 50 Mg Tab.Er.24h PO 50 mg DAILY [facility] Administration Protocol Multivitamins/Vitamin C 1 tab 07/25/20 09:00 07/26/20 09:11 Multivitamin Tablet PO 1 tab DAILY [facility] Administration Nicotine 14 mg 07/24/20 16:10 07/26/20 09:13 Nicotine 14 Mg Patch.Td24 TRANSDERMA 14 mg DAILY [facility] Administration Ondansetron HCl 4 mg 07/24/20 16:25 Ondansetron Hcl 4 Mg/2 Ml Vial IVPUSH Q8H PRN Nausea and Vomiting Phenobarbital 15 mg 07/29/20 09:00 Phenobarbital 15 Mg Tablet PO 07/30/20 09:01 DAILY [facility] Protocol Phenobarbital 45 mg 07/25/20 09:00 07/26/20 09:11 Phenobarbital 15 Mg Tablet PO 07/26/20 21:01 45 mg BID [facility] Administration Protocol Phenobarbital 15 mg 07/27/20 09:00 Phenobarbital 15 Mg Tablet PO 07/28/20 21:01 BID [facility] Protocol Sodium Chloride 3 ml 07/25/20 00:00 07/26/20 07:38 0.9 % Sodium Chloride Flush 3 Ml Syringe IVFLUSH 3 ml QSHIFT [facility] Administration Tamsulosin HCl 0.4 mg 07/24/20 21:00 07/25/20 23:44 Tamsulosin Hcl 0.4 Mg Capsule PO 0.4 mg BEDTIME [facility] Administration Labs CBC & Chem 7: 07/26/20 05:24 07/26/20 05:24 Microbiology Microbiology Results: Microbiology 07/24/20 14:45 Urine clean catch - Clean Catch Midstream Urine Culture - Final Pseudomonas aeruginosa 07/24/20 10:37 Blood - Venous Blood Culture - Preliminary Coag negative Staphylococcus 07/24/20 10:26 Blood - Venous Blood Culture - Preliminary Coag negative Staphylococcus Assessment and Plan (1) UTI (urinary tract infection): Status: Acute Assessment and Plan: This is a 69-year-old male with a past medical history of chronic alcoholism who presents to the hospital with altered mental status and aphasia. He is admitted for further workup. 1. Acute Toxic/Metabolic Encephalopathy multifactorial -- see details below appears to be improving slowly, suspect at his baseline 2. Alcohol abuse and dependence with acute withdrawal possibly had a seizure prior to arrival continue phenobarb MVI/thiamin(IV high dose)/ folate 3. ? Wernicke / Korsakoff syndrome change iv thiamin to po neuron on board 4. ? Central Pontine myelinolysis chronic per neuro (see notes). alcohol cessation 5. Sepsis secondary to UTI pseudomonas in the urine stop rocephin, change to levaquin 2/2 blood cx positive -- likely contaminant (coag. neg staph) 6. Acute Anemia h/h stable, no evidence of bleed at this time 7. 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 Chronic HypoNa monitor Full Code DVT pptx, subcut. heparin
[2020-07-26 16:22] LABS: Glucose, Whole Blood 67 mg/dL (60-115)
[2020-07-26] MEDS: levoFLOXacin 500 MG TABLET PO (18:02)
[2020-07-26] MEDS: Heparin Sodium,Porcine 5,000 UNIT/ML VIAL 5000 UNIT SUBCUT (18:02)
[2020-07-26 18:08] LABS: Glucose, Whole Blood 235 mg/dL (60-115)
[2020-07-26 20:24] LABS: Glucose, Whole Blood 270 mg/dL (60-115)
[2020-07-26] MEDS: Tamsulosin HCL 0.4 MG CAPSULE PO (21:23)
[2020-07-26] MEDS: Atorvastatin Calcium 80 MG TABLET PO (21:24)
--- NOTE | 2020-07-26 22:21 | PM.EVENT ---
Event Note Date of Service: 07/26/20 Event Note: Pt seen and examined Full consult to follow This is a 69-year-old male with a past medical history of chronic alcoholism who presents to the hospital with altered mental status and aphasia. 1. AI - Due to Renal hypoperfusion- Sepsis UTI Prerenal State JOSE effect R/o Obstruction 2. CKD 3 at baseline 3. NAG Met acidosis 4. Acute Toxic/Metabolic Encephalopathy 5. . Alcohol abuse and dependence with acute withdrawal Urine Studies Renal USG Hold JOSE IVF with Bicarb Antibiotics as per medical team Pt has a waite D/w Medical team Thx Will follow
[2020-07-27] MEDS: Sodium Bicarbonate 8.4% 150 MEQ in Dextrose 5 % 850 ML 100 MEQ IV (02:11)
[2020-07-27 03:15] VITALS: BP 117/57; PULSE 86; RESP 18; TEMP 36.7; O2SAT 98
[2020-07-27 06:47] LABS: Hematocrit 26.4 % (42-52); Hemoglobin 9.2 g/dl (14.0-18.0); Mean Corpuscular HGB Conc 34.8 g/dl (31.0-36.0); Mean Corpuscular Hemoglobin 29.9 pg (27.0-33.0); Mean Corpuscular Volume 85.7 fL (80-98); Mean Platelet Volume 9.3 fL (9.4-12.4); Platelet Count 197 X10*3/uL (160-400); Red Blood Count 3.08 X10*6/uL (4.60-5.80); Red Cell Distribution Width 15.9 % (11.0-16.0)
[2020-07-27 06:55] LABS: Anion Gap 13 (12-20); Blood Urea Nitrogen 45 mg/dL (9-16); Calcium 7.3 mg/dL (8.4-10.2); Carbon Dioxide 22 mmol/L (22-29); Chloride 101 mmol/L (96-108); Creatinine Clr Calc Pharmacy 29.7; Estimated Glomerular Filt Rate 38; Glucose Random 113 mg/dL (60-115); Potassium 4.4 mmol/L (3.3-5.1); Sodium 132 mmol/L (135-145)
[2020-07-27 06:58] VITALS: BP 115/68; PULSE 86; RESP 20; TEMP 36; O2SAT 98
[2020-07-27 07:09] LABS: Glucose, Whole Blood 126 mg/dL (60-115)
[2020-07-27] MEDS: Heparin Sodium,Porcine 5,000 UNIT/ML VIAL 5000 UNIT SUBCUT (09:13)
[2020-07-27] MEDS: amLODIPine Besylate 10 MG TABLET PO (09:14)
[2020-07-27] MEDS: Multivitamin TABLET 1 TAB PO (09:14)
[2020-07-27] MEDS: PHENobarbitaL 15 MG TABLET PO ×2 (09:14→09:19)
[2020-07-27] MEDS: Metoprolol Succinate ER 50 MG TAB.ER.24H PO (09:14)
[2020-07-27] MEDS: Nicotine 14 MG PATCH.TD24 TRANSDERMA (09:15)
[2020-07-27] MEDS: Clopidogrel Bisulfate 75 MG TABLET PO (09:15)
[2020-07-27] MEDS: Thiamine HCL 100 MG TABLET PO (09:15)
[2020-07-27] MEDS: Folic Acid 1 MG TABLET PO (09:15)
[2020-07-27] MEDS: Aspirin 81 MG TAB.CHEW PO (09:15)
[2020-07-27] MEDS: Finasteride 5 MG TABLET PO (09:15)
--- NOTE | 2020-07-27 10:31 | P.DS_ITS ---
DS: Providers Provider Date of Service: 07/27/20 Date of admission: 07/24/20 16:25 Primary care physician: AARON Fonseca Consults: 07/24/20 10:06 Consult to Neurology Stat Consulting Provider: [facility] Reason for consultation: ? stroke vs seizure Has provider been notified: Yes 07/24/20 16:16 Consult to Care Team Routine Comment: Reason for consultation: EtOH 07/26/20 12:39 Consult to Nephrology Routine Consulting Provider: John Fish Reason for consultation: AI on CKD, Dr. Fish aware Has provider been notified: Yes DS: Diagnosis Discharge Diagnosis (1) Sepsis: Status: Acute (2) Toxic metabolic encephalopathy: Status: Acute (3) Alcohol withdrawal: Status: Acute (4) UTI (urinary tract infection): Status: Acute (5) Acute kidney injury superimposed on CKD: Status: Acute DS: Medications Discharge Medications Home Medications: Home Medications Medication Instructions Recorded Confirmed multivitamin 1 tab PO DAILY 02/15/20 07/24/20 aspirin 81 mg PO DAILY 07/24/20 07/24/20 budesonide-formoterol [Symbicort] 2 puff INHALATION BID 07/24/20 07/24/20 Previous Rx's Medication Instructions Recorded atorvastatin 80 mg tablet 80 mg PO BEDTIME 90 Days #90 tab 04/04/20 amlodipine 10 mg tablet 10 mg PO DAILY 90 Days #90 tab 05/09/20 clopidogrel 75 mg tablet 75 mg PO DAILY #90 tab 07/11/20 metoprolol succinate 50 mg 50 mg PO DAILY #90 tab 07/11/20 tablet,extended release 24 hr finasteride [Proscar] 5 mg PO DAILY #30 tab 07/27/20 folic acid 1 mg PO DAILY #30 tab 07/27/20 levofloxacin 500 mg PO Q24H #10 tab 07/27/20 multivitamin with folic acid 1 tab PO DAILY #30 tab 07/27/20 [Tab-A-Erich] tamsulosin 0.4 mg PO BEDTIME #30 cap 07/27/20 thiamine mononitrate (vit B1) 100 mg PO DAILY #30 tab 07/27/20 DS: Summary Hospital Course Hospital Course: Patient was admitted for: Metabolic encephalopathy, alcohol abuse with withdrawal, sepsis secondary to urinary tract infection. He was started on phenobarbital per protocol for his alcohol withdrawal. His electrolytes were monitored and repleted as necessary. He does not have any signs of withdrawal at the time of discharge. In regards to his sepsis secondary to urinary tract infection, he was started on IV rocephin. His UA grew Pseudomonas which was sensitive to Levaquin and he was subsequently transitioned to Levaquin which he will be discharged on for a total of a 10 day course. His Encephalopathy, this was deemed multifactorial including alcohol use and withdrawal, sepsis and urinary tract infection, vascular dementia. He also underwent a MRI of the brain which showed significant chronic ischemic findings, without any acute changes. Patient underwent an EEG which did not show any evidence of seizure activity. Neurology recommended aspirin and controlling other vascular risk factors. Complete alcohol cessation was recommended. Patient's hospital course further complicated by mild acute kidney injury on chronic kidney disease. He was treated with a bicarb drip with improvement in his metabolic acidosis as well as serum creatinine. He will be discharged home with his lisinopril held until he has been followed up by the PCP or Nephrology team. Patient was offered physical therapy evaluation and possible short-term rehabilitation transfer, however patient refused this. A discussion was held with the patient's about this, and at this time she requested home PT, which will be arranged. Time Spent with Patient Time attestation: Total time spent providing and/or coordinating discharge services: Discharge coordination time: Greater than 30 minutes Physical Exam Vital Signs: Vital Signs: Last Vital Signs Temp 96.8 F 07/27/20 06:58 Pulse 86 07/27/20 06:58 Resp 20 07/27/20 06:58 BP 115/68 07/27/20 06:58 Pulse Ox 98 07/27/20 06:58 Body Mass Index 19.6 Const: Other: General - no acute distress, appears comfortable Cardiovascular - regular rate and rhythm, S1-S2 Lungs - normal respiratory effort, clear to auscultation bilaterally, no wheezing Abdomen - soft, nontender, no rebound or guarding Extremities - no edema bilaterally Neuro - non-focal DS: Data Data Completed and Pending Labs on day of discharge: Laboratory Results - last 24 hr 07/26/20 07/26/20 07/26/20 10:59 16:03 18:04 WBC RBC Hgb Hct MCV MCH MCHC RDW Plt Count MPV Absolute Nucleated RBC Nucleated RBC % (auto) Sodium Potassium Chloride Carbon Dioxide Anion Gap BUN Creatinine Estim Creat Clear Calc Estimated GFR POC Glucose 339 H 67 235 H Random Glucose Calcium 07/26/20 07/27/20 07/27/20 20:04 05:38 05:38 WBC 7.0 RBC 3.08 L Hgb 9.2 L Hct 26.4 L MCV 85.7 MCH 29.9 MCHC 34.8 RDW 15.9 Plt Count 197 MPV 9.3 L Absolute Nucleated RBC 0.000 Nucleated RBC % (auto) 0.0 Sodium 132 L Potassium 4.4 Chloride 101 Carbon Dioxide 22 Anion Gap 13 BUN 45 H Creatinine 1.80 H Estim Creat Clear Calc 29.7 Estimated GFR 38 POC Glucose 270 H Random Glucose 113 Calcium 7.3 L D 07/27/20 06:56 WBC RBC Hgb Hct MCV MCH MCHC RDW Plt Count MPV Absolute Nucleated RBC Nucleated RBC % (auto) Sodium Potassium Chloride Carbon Dioxide Anion Gap BUN Creatinine Estim Creat Clear Calc Estimated GFR POC Glucose 126 H Random Glucose Calcium Discharge Plan Discharge Patient Disposition: Home Health Service Discharge Diagnosis: UTI, Alcohol withdrawal, AI Referrals: Joe Farris, OPERATIONAL TRAINER- [Primary Care Provider] - 1 Week Discharge Medications: New folic acid 1 mg Tablet 1 mg PO DAILY Qty: 30 RF: 0 thiamine mononitrate (vit B1) 100 mg Tablet 100 mg PO DAILY Qty: 30 RF: 0 multivitamin with folic acid [Tab-A-Erich] 400 mcg Tablet 1 tab PO DAILY Qty: 30 RF: 0 finasteride [Proscar] 5 mg Tablet 5 mg PO DAILY Qty: 30 RF: 0 tamsulosin 0.4 mg Capsule 0.4 mg PO BEDTIME Qty: 30 RF: 0 levofloxacin 500 mg Tablet 500 mg PO Q24H Qty: 10 RF: 0 Continued atorvastatin 80 mg tablet 80 mg PO BEDTIME 90 Days Qty: 90 RF: 4 amlodipine 10 mg tablet 10 mg PO DAILY 90 Days Qty: 90 RF: 1 clopidogrel 75 mg tablet 75 mg PO DAILY Qty: 90 RF: 0 metoprolol succinate 50 mg tablet extended release 24 hr 50 mg PO DAILY Qty: 90 RF: 0 aspirin 81 mg Tablet,Chewable 81 mg PO DAILY RF: 0 budesonide-formoterol [Symbicort] 80-4.5 mcg/actuation Hfa Aerosol Inhaler 2 puff INHALATION BID RF: 0 multivitamin [Daily Multi-Vitamin] Tablet 1 tab PO DAILY RF: 0 Discontinued lisinopril 40 mg tablet 40 mg PO DAILY RF: 0 Discharge Orders: Discharge Order (Routine); Ordered 07/27/20 Ordered By: Adiel Mcdaniel Diet: advance to usual diet Activity on Discharge: As tolerated Stand Alone Forms: Patient Portal Discharge page Care Plan Goals: To stay healthy and out of the hospital. Health Concerns: UTI Alcohol withdrawal AI on CKD Plan of Treatment: UTI - Take Levaquin Alcohol withdrawal - you have been treated for alcohol withdrawal, do not drink any furhter alcohol AI on CKD - follow up with kidney doctors. Do not take lisinopril Assessment: 69 yo M admitted for multiple issues including alcohol withdrawal, UTI, AI. Will be d/c on a levaquin course. Treated for withdrawal. Needs to abstain from alcohol.
[2020-07-27 10:48] VITALS: BP 158/77; PULSE 74; RESP 18; TEMP 36.1; O2SAT 99
[2020-07-27 11:12] LABS: Glucose, Whole Blood 180 mg/dL (60-115)
--- NOTE | 2020-07-27 11:23 | W.MHC.F2F ---
Service Date Service Date: 07/27/20 Encounter Date of encounter: 07/27/20 Reasons for Services Reason for residential: neurological assessment Reason for physical therapy: home safety and mobility and gait/transfer training Overseeing Care: Joe Farris Homebound: Leaving the home is medically contraindicated at this time without the asist of a device and/or another person due th the listed conditions above and below. Certification: Based on the above findings, I certify that this patient is confined to the home and needs intermittent residential care, physical therapy and/or speech therapy, or continues to need occupational therapy. The patient is under my care, and I have initiated the establishment of the plan of care. The patient will be followed by a physician who will periodically review the plan of care.
--- NOTE | 2020-07-27 11:31 | MHC.CM.PN ---
dc plan home with family and hvns
--- NOTE | 2020-07-27 12:41 | PM.PNNEP ---
Subjective Subjective Date of Service: 07/27/20 Interval history: seen and examined this AM no new complaints Feels good Physical Exam Vital Signs: Vital Signs: Last Vital Signs Temp 97 F 07/27/20 10:48 Pulse 74 07/27/20 10:48 Resp 18 07/27/20 10:48 BP 158/77 H 07/27/20 10:48 Pulse Ox 99 07/27/20 10:48 Body Mass Index 19.6 Const: Other: General - no acute distress, appears comfortable Cardiovascular - regular rate and rhythm, S1-S2 Lungs - normal respiratory effort, clear to auscultation bilaterally, no wheezing Abdomen - soft, nontender, no rebound or guarding Extremities - no edema bilaterally Neuro - non-focal Objective Data Labs CBC & Chem 7: 07/27/20 05:38 07/27/20 05:38 Labs: Laboratory Results - last 24 hr 07/26/20 07/26/20 07/26/20 16:03 18:04 20:04 WBC RBC Hgb Hct MCV MCH MCHC RDW Plt Count MPV Absolute Nucleated RBC Nucleated RBC % (auto) Sodium Potassium Chloride Carbon Dioxide Anion Gap BUN Creatinine Estim Creat Clear Calc Estimated GFR POC Glucose 67 235 H 270 H Random Glucose Calcium 07/27/20 07/27/20 07/27/20 05:38 05:38 06:56 WBC 7.0 RBC 3.08 L Hgb 9.2 L Hct 26.4 L MCV 85.7 MCH 29.9 MCHC 34.8 RDW 15.9 Plt Count 197 MPV 9.3 L Absolute Nucleated RBC 0.000 Nucleated RBC % (auto) 0.0 Sodium 132 L Potassium 4.4 Chloride 101 Carbon Dioxide 22 Anion Gap 13 BUN 45 H Creatinine 1.80 H Estim Creat Clear Calc 29.7 Estimated GFR 38 POC Glucose 126 H Random Glucose 113 Calcium 7.3 L D 07/27/20 10:47 WBC RBC Hgb Hct MCV MCH MCHC RDW Plt Count MPV Absolute Nucleated RBC Nucleated RBC % (auto) Sodium Potassium Chloride Carbon Dioxide Anion Gap BUN Creatinine Estim Creat Clear Calc Estimated GFR POC Glucose 180 H Random Glucose Calcium Microbiology Microbiology Results: Microbiology 07/24/20 10:37 Blood - Venous Blood Culture - Final Staphylococcus epidermidis 07/24/20 10:26 Blood - Venous Blood Culture - Final Staphylococcus epidermidis 07/24/20 14:45 Urine clean catch - Clean Catch Midstream Urine Culture - Final Pseudomonas aeruginosa Assessment & Plan Assessment and plan (1) Sepsis: Status: Acute (2) Toxic metabolic encephalopathy: Status: Acute (3) Alcohol withdrawal: Status: Acute (4) UTI (urinary tract infection): Status: Acute (5) Acute kidney injury superimposed on CKD: Status: Acute Assessment and Plan: This is a 69-year-old male with a past medical history of chronic alcoholism who presents to the hospital with altered mental status and aphasia. He is admitted for further workup. Toshia Better Keep Pt hydrated ' Hold JOSE Time Spent With Patient Time: Total time spent is greater than 50% in coordination of care (as documented) at patient's floor/unit and/or counseling patient:
--- NOTE | 2020-07-27 21:10 | CONS_ITS ---
DATE OF SERVICE: 07/26/2020 REFERRING PHYSICIAN: Adiel Mcdaniel MD REASON FOR CONSULTATION: Consult requested by Dr. Mcdaniel to evaluate and help in management of the patient's renal insufficiency. The patient is a 69-year-old male with past medical history of peripheral vascular disease, hypertension, type 2 diabetes mellitus, BPH, who presents to the hospital with altered mental status. He was admitted on July 24. Apparently, his noticed him to have altered mental status. He also had difficulty able to ambulate and urinate. He was brought in by EMS and found to be disoriented. He had some oral abrasions. CT of the head showed no intracranial hemorrhage but does question of brainstem edema and ischemia in the mid neftali. Has been drinking fair amount of alcohol. He was noted to have sepsis, leukocytosis, tachycardia. He was treated for UTI with ceftriaxone. He was found to have acute kidney injury and hyperkalemia. He was given calcium gluconate and Kayexalate. Renal consult has been requested to help with management of his renal insufficiency. At the present time, he is resting in the bed and is able to answer most of the questions. He is not a good historian. He denied any headache, dizziness. He denied any dysuria. REVIEW OF SYSTEMS: As noted above. Other system are reviewed negative. PAST MEDICAL HISTORY: History of peripheral vascular disease, hypertension, type 2 diabetes mellitus, history of BPH, stage III CKD at baseline, alcohol abuse, COPD, hyperlipidemia, toxic myopathy. FAMILY HISTORY: Significant for parkinsonism in the father. SOCIAL HISTORY: The patient is a current alcohol user. He continues to smoke, does not use drugs. ALLERGIES: THE PATIENT HAS NO MAJOR ALLERGIES OTHER THAN PORCELAIN. MEDICATIONS: At home include oxybutynin, multivitamin, Flomax, and lisinopril 40 daily. PHYSICAL EXAMINATION: GENERAL: The patient is resting in the bed. Awake, able to follow commands. No significant distress. VITAL SIGNS: Blood pressure was 154/74, pulse 74, afebrile. HEENT: Shows pupils equal bilaterally and reactive to light. No jugular venous distention is noted. NECK: Supple. CARDIOVASCULAR SYSTEM: S1, S2 without rub or murmur. RESPIRATORY SYSTEM: Air entry decreased in the bases. No crepitation or rhonchi is noted. ABDOMEN: Soft, nontender. Bowel sounds normal. EXTREMITIES: Showed no significant edema. There is no peripheral cyanosis or clubbing. LABS: On admission, BUN 33, creatinine 1.54. Repeat labs done today, creatinine was 2.1. On admission, the patient was hyperkalemic and hyponatremic. IMPRESSION: A 69-year-old male with acute kidney injury. Acute kidney injury in this patient likely secondary to renal hypoperfusion in the setting of the sepsis. He could also have prerenal azotemia. We need to rule out obstruction in this patient. The patient was on JOSE inhibitor, which could also have contributed to worsening renal function. 1. Chronic kidney disease, stage 3, at baseline. 2. Non-anion gap metabolic acidosis. 3. Metabolic encephalopathy, is resolving. 4. Alcohol abuse. RECOMMENDATION: At this juncture, we have taken order full set of urine studies. We have also ordered renal ultrasound to assess the size of the kidney to rule out obstruction. Antibiotics for UTI as per the medical team. He has been followed by Neurology for his toxic/acute encephalopathy. I have initiated the patient on IV fluids with sodium bicarbonate at 150 mEq per hour to correct the acidosis. The patient has a Kumar catheter at this point, and we will follow the input, output closely. Thank you for allowing me to participate in medical management of the patient. MD PRINCESS Hernandez/JOHN / [id number]
[2020-07-29 10:51] LABS: Vitamin B1 9 nmol/L (8-30)
== END 2020-07-27 14:00 | disposition home health service (06) | DRG 871 ==
LOC: HO.ED 15:34 → HO.EDOVER 16:42 → HO.IMC 18:53
PROVIDERS: Physician Assistant Medical; Admitting Provider Family Medicine; Emergency Provider Emergency Medicine; PCP Nurse Practitioner Family; Visit Provider Family Medicine
DX: A41.52 Sepsis due to Pseudomonas (principal); G92 Toxic encephalopathy; N39.0 Urinary tract infection, site not specified; N17.9 Acute kidney failure, unspecified; E87.1 Hypo-osmolality and hyponatremia; F10.239 Alcohol dependence with withdrawal, unspecified; G37.2 Central pontine myelinolysis; N18.4 Chronic kidney disease, stage 4 (severe); R47.01 Aphasia; E78.5 Hyperlipidemia, unspecified; N40.0 Benign prostatic hyperplasia without lower urinary tract symptoms; E87.5 Hyperkalemia; I12.9 Hypertensive chronic kidney disease with stage 1 through stage 4 chronic kidney disease, or unspecified chronic kidney disease; E11.22 Type 2 diabetes mellitus with diabetic chronic kidney disease; F17.210 Nicotine dependence, cigarettes, uncomplicated; F01.50 Vascular dementia, unspecified severity, without behavioral disturbance, psychotic disturbance, mood disturbance, and anxiety; Z71.6 Tobacco abuse counseling; Z86.73 Personal history of transient ischemic attack (TIA), and cerebral infarction without residual deficits; Z20.822 Contact with and (suspected) exposure to COVID-19; Z79.02 Long term (current) use of antithrombotics/antiplatelets; Z79.82 Long term (current) use of aspirin; Z79.899 Other long term (current) drug therapy
CPT/HCPCS: 36415; 70450; 70551; 71045; 80048; 80053; 80076; 80307; 80320; 81001; 81003; 82140; 82550; 82947; 83605; 83735; 84425; 84443; 84484; 85014; 85018; 85025; 85027; 85610; 85730; 87040; 87077; 87086; 87088; 87186; 87205; 87635; 93005; 95816; 96365; 96366; 96367; 96368; 99285; 99291; J0610; J0696; J1650; J2560; J3411

== ENCOUNTER → 2020-08-04 10:49 | Outpatient (BNVA) | payer MEDICARE, OTHER, SELFPAY | PROVIDERS: PCP Nurse Practitioner Family; Visit Provider Urology | DX: N31.9 Neuromuscular dysfunction of bladder, unspecified (principal); N40.0 Benign prostatic hyperplasia without lower urinary tract symptoms | CPT/HCPCS: 52000; 81002; 99212 ==

== ENCOUNTER 2020-08-05 07:55 | Outpatient (REF) | payer MEDICARE, OTHER, SELFPAY ==
--- NOTE | ~2020-08-05 | US_ITS ---
EXAMINATION: US VENOUS ULTRASOUND WITH DOPPLER LOWER EXTREMITY, LEFT CLINICAL INFORMATION: Leg swelling COMPARISON: Ultrasound 01/13/2020 TECHNIQUE: Ultrasound of the deep veins is performed from the hip to the calf with compression sonography and color and pulse Doppler assessment. Spectral analysis with color-flow imaging is performed. FINDINGS: There is normal venous compression and respiratory variation and augmented flow. The visualized common femoral vein, superficial femoral vein, profunda femoral vein, popliteal vein, and the trifurcation region shows no evidence of deep venous thrombosis. There is no significant popliteal fossa cyst. There is a fluid collection seen in the left groin adjacent to the vessels. This measures approximately 3.2 x 1.0 x 2.1 cm. No vascular flow within the lesion. US/US venous duplex LE LT IMPRESSION: No DVT demonstrated in the left lower extremity. Left groin fluid collection measuring 3.2 cm. No internal vascular flow. Similar findings are seen in the prior study of 01/13/2020.
== END 2020-08-05 07:56 | disposition home or self-care (01) ==
LOC: HO.HMGCX 07:55
PROVIDERS: PCP Urology; Visit Provider Nurse Practitioner Family
DX: M79.89 Other specified soft tissue disorders (principal)
CPT/HCPCS: 93971

== ENCOUNTER 2020-08-16 12:59 | Outpatient (REF) | payer MEDICARE, OTHER, SELFPAY ==
[2020-08-16 13:24] LABS: D Dimer 2108 NG/ML
[2020-08-16 13:30] LABS: Rheumatoid Factor < 15.0 IU/mL (<15.0); Uric Acid 5.7 mg/dL (3.4-7.0)
[2020-08-16 13:48] LABS: Erythrocyte Sedimentation Rate 13 MM/HR (0-15)
[2020-08-17 12:44] LABS: Antibody to SS-A Antigen <1.0 NEG AI (<1.0 NEG); Antibody to SS-B Antigen <1.0 NEG AI (<1.0 NEG); Lyme Abs Screen <0.90 index
[2020-08-18 21:27] LABS: Cyclic Citrullinated Peptide <16 UNITS
[2020-08-19 15:37] LABS: Anti Nuclear Antibody Screen POSITIVE (NEGATIVE)
[2020-08-19 16:01] LABS: Anti Nuclear Antibody Titer 1:40 titer
== END 2020-08-16 13:00 | disposition home or self-care (01) ==
LOC: HO.HVNA 12:59
PROVIDERS: Visit Provider Nurse Practitioner Family
DX: M79.89 Other specified soft tissue disorders (principal)
CPT/HCPCS: 36415; 84550; 85379; 85652; 86038; 86039; 86140; 86200; 86235; 86431; 86617; 86618

== ENCOUNTER → 2020-08-17 09:22 | Outpatient (BNVA) | payer MEDICARE, OTHER, SELFPAY | PROVIDERS: PCP Nurse Practitioner Family; Visit Provider Internal Medicine | DX: J44.9 Chronic obstructive pulmonary disease, unspecified (principal); F17.200 Nicotine dependence, unspecified, uncomplicated | CPT/HCPCS: 99212 ==

== ENCOUNTER → 2020-08-19 13:44 | Outpatient (REF) | payer MEDICARE, OTHER, SELFPAY ==
--- NOTE | ~2020-08-19 | NM_ITS ---
EXAMINATION: CHEST. VENTILATION/PERFUSION SCAN. CLINICAL INFORMATION: Chest pain rule out PE. Elevated d-dimer. History of leg swelling, COPD and SOB. COMPARISON: None TECHNIQUE: Chest 2 views. Following intravenous administration of 4 mCi of 90 9M technetium MAA, imaging over the lungs were obtained multiple projections. Ventilation study was not performed. FINDINGS: Chest: The lungs are well-expanded without acute infiltrate. There is increased interstitial markings in both lungs. The heart size and pulmonary vascularity is normal. No gross bony abnormality. VQ scan: There is patchy but normal perfusion seen in both lungs without any focal defect. There are nonsegmental defect in the lingula corresponding to the heart. No segmental defects seen. NM/NM pul perfusion IMPRESSION: Very low probability for PE.
== END ==
LOC: HO.NUCMED 13:44
PROVIDERS: PCP Nurse Practitioner Family; Visit Provider Nurse Practitioner Family
DX: R79.89 Other specified abnormal findings of blood chemistry (principal); J44.9 Chronic obstructive pulmonary disease, unspecified
CPT/HCPCS: 71046; 78580; A9540

== ENCOUNTER 2020-08-23 09:20 | Outpatient (REF) | payer MEDICARE, OTHER, SELFPAY ==
[2020-08-23 11:04] LABS: MANUAL DIFF FLAG NO
[2020-08-23 11:32] LABS: Basophils Absolute Auto 0.1 X10*3/uL (0.0-0.2); Basophils Percent Auto 0.8 % (0-2); Eosinophils Absolute Auto 0.1 X10*3/uL (0.0-0.4); Eosinophils Percent Auto 1.7 % (0-4); Hematocrit 32.2 % (42-52); Hemoglobin 10.8 g/dl (14.0-18.0); Imm Gran Abs Auto 0.03 X10*3/uL (0.00-0.03); Imm Gran Pct Auto 0.4 % (0.0-0.4); Lymphocytes Absolute Auto 1.1 X10*3/uL (1.2-4.9); Lymphocytes Percent Auto 15.5 % (20-40); Mean Corpuscular HGB Conc 33.5 g/dl (31.0-36.0); Mean Corpuscular Hemoglobin 29.5 pg (27.0-33.0); Mean Platelet Volume 9.5 fL (9.4-12.4); Monocytes Absolute Auto 0.8 X10*3/uL (0.1-1.2); Monocytes Percent Auto 10.6 % (2-11); Platelet Count 297 X10*3/uL (160-400); Red Blood Count 3.66 X10*6/uL (4.60-5.80); Red Cell Distribution Width 15.6 % (11.0-16.0); White Blood Count 7.1 X10*3/uL (4.8-10.8)
[2020-08-23 11:42] LABS: B Type Natriuretic Peptide 700 pg/mL (<100)
[2020-08-23 11:47] LABS: Anion Gap 13 (12-20); Blood Urea Nitrogen 16 mg/dL (9-16); Calcium 8.6 mg/dL (8.4-10.2); Carbon Dioxide 22 mmol/L (22-29); Chloride 104 mmol/L (96-108); Estimated Glomerular Filt Rate 59; Glucose Random 124 mg/dL (60-115); Potassium 4.3 mmol/L (3.3-5.1); Sodium 135 mmol/L (135-145)
[2020-08-23 12:01] LABS: Alanine Aminotransferase 18 U/L (0-40); Albumin Level 3.9 g/dL (3.5-5.0); Alkaline Phosphatase 125 U/L (39-117); Anion Gap 14 (12-20); Aspartate Amino Transferase 24 U/L (5-37); Bilirubin Total 0.4 mg/dL (0.0-1.0); Blood Urea Nitrogen 16 mg/dL (9-16); Calcium 8.6 mg/dL (8.4-10.2); Carbon Dioxide 22 mmol/L (22-29); Chloride 103 mmol/L (96-108); Estimated Glomerular Filt Rate 59; Glucose Random 125 mg/dL (60-115); Potassium 4.4 mmol/L (3.3-5.1); Sodium 135 mmol/L (135-145); Total Protein 6.7 g/dL (6.5-8.0)
[2020-08-23 12:02] LABS: TSH reflex Free T4 1.19 uIU/mL (0.32-4.0)
== END 2020-08-23 09:21 | disposition home or self-care (01) ==
LOC: HO.HMGCLDS 09:20
PROVIDERS: PCP Nurse Practitioner Family; Visit Provider Nurse Practitioner Family
DX: M79.89 Other specified soft tissue disorders (principal); R79.89 Other specified abnormal findings of blood chemistry
CPT/HCPCS: 36415; 80048; 80053; 83880; 84443; 85025

== ENCOUNTER → 2020-09-07 08:30 | Outpatient (BNVA) | payer MEDICARE, OTHER, SELFPAY | PROVIDERS: PCP Nurse Practitioner Family; Referring Provider Nurse Practitioner Family; Visit Provider Internal Medicine | DX: I25.10 Atherosclerotic heart disease of native coronary artery without angina pectoris (principal); I10 Essential (primary) hypertension; E78.5 Hyperlipidemia, unspecified; I73.9 Peripheral vascular disease, unspecified; F17.200 Nicotine dependence, unspecified, uncomplicated | CPT/HCPCS: 99212 ==

== ENCOUNTER 2020-09-09 08:59 | Outpatient (REF) | payer MEDICARE, OTHER, SELFPAY ==
--- NOTE | ~2020-09-09 | XR_ITS ---
EXAMINATION: XR HIP, LEFT CLINICAL INFORMATION: Left lower quadrant pain COMPARISON: CT abdomen pelvis on 05/02/2020 TECHNIQUE: Two views of the left hip. FINDINGS: Bones are normal. No fracture. Alignment is anatomic. There is mild bilateral wall hip joint space. There are extensive atherosclerotic calcifications. There are multiple bilateral arterial stents. There are surgical clips throughout the pelvis. XR/XR hip LT w PEL1V IMPRESSION: Mild degenerative disease of left hip.
[2020-09-09 13:17] LABS: Glucose Urine UA NEG (NEG); Leukocyte Esterase Urine 3+ (NEG); Nitrite Urine NEG (NEG); Specific Gravity - Urine <= 1.005 (1.005-1.025); Urine Blood TRACE (NEG); Urine Ketones NEG (NEG); Urine Protein 1+ MG/DL (NEG-TRACE)
[2020-09-09 13:22] LABS: Appearance Urine HAZY; Color Urine YELLOW
[2020-09-09 14:44] LABS: Bacteria Urine 1+ /LPF; WBC Urine 30-49 /HPF (0-4)
== END 2020-09-09 09:00 | disposition home or self-care (01) ==
LOC: HO.HMGCX 08:59
PROVIDERS: PCP Nurse Practitioner Family; Referring Provider Urology; Visit Provider Hospitalist
DX: M25.552 Pain in left hip (principal); R10.32 Left lower quadrant pain; N39.0 Urinary tract infection, site not specified
CPT/HCPCS: 73502; 81001; 87086; 87088; 87186

== ENCOUNTER 2020-09-16 12:44 | Outpatient (REF) | payer MEDICARE, OTHER, SELFPAY ==
[2020-09-16 14:56] LABS: Glucose Urine UA 250 MG/DL (NEG); Leukocyte Esterase Urine TRACE (NEG); Nitrite Urine NEG (NEG); Urine Blood NEG (NEG); Urine Ketones NEG (NEG); Urine Protein TRACE MG/DL (NEG-TRACE)
[2020-09-16 14:59] LABS: Appearance Urine CLEAR; Color Urine YELLOW
[2020-09-16 15:09] LABS: Bacteria Urine TRACE /LPF; Squamous Epithelial Cell Urine 1+ /LPF
== END 2020-09-16 12:45 | disposition home or self-care (01) ==
LOC: HO.HMGCLNP 12:44
PROVIDERS: Visit Provider Nurse Practitioner Family
DX: Z13.89 Encounter for screening for other disorder (principal)
CPT/HCPCS: 81001; 87086

== ENCOUNTER 2020-09-17 10:26 | Inpatient (IN) | payer OTHER, MEDICARE, SELFPAY ==
--- NOTE | ~2020-09-17 | CT_ITS ---
EXAMINATION: CT HEAD WITHOUT CONTRAST (STROKE PROTOCOL) CLINICAL INFORMATION: Stroke protocol. Sudden onset of dysarthria COMPARISON: 07/24/2020 TECHNIQUE: Contiguous axial imaging was performed from the skull base to vertex without intravenous administration of contrast. This CT examination was performed using dose optimization techniques as appropriate, variously including the following: *Automated exposure control *Adjustment of mA and/or kV according to patient size (this includes techniques or standardized protocols for targeted exams where dose is matched to indication/reason for exam; i.e. extremities or head) *Use of iterative reconstruction technique DLP: 705 mGy-cm FINDINGS: There are extensive periventricular and subcortical white matter hypodensities that are unchanged when compared with the prior study. This is most likely related to chronic small vessel ischemic disease, however this does limit assessment for subtle brasher-white matter changes. There are scattered areas of more intense hypodensity seen, in particular the left posterior parietal lobe adjacent to the occipital horn which most likely represents an old infarct and is unchanged. Diffuse hypodensity within the neftali is similar to the prior study. No evidence of mass lesion, mass effect or midline shift. The ventricles are symmetric in configuration and stable in size. No acute intracranial hemorrhage or extra-axial fluid collection. Basal cisterns are patent. The calvarium is intact. Limited views of the paranasal sinuses demonstrate diffuse mucoperiosteal thickening of the maxillary air cells with secretions in the right maxillary sinus. Mastoid air cells are well aerated and middle ear cavities are clear. Limited views of the orbits demonstrate bilateral lens extractions. CT/CT head for stroke IMPRESSION: 1. No evidence of acute intracranial abnormality. 2. Extensive small vessel ischemic disease with old infarct in the left posterior parietal lobe. This critical result was discussed with Dr. Angela at 1044 hours hours on 09/17/2020. It was ascertained that the content and urgency of the report was understood at the time of direct communication.
--- NOTE | ~2020-09-17 | XR_ITS ---
EXAMINATION: XR CHEST CLINICAL INFORMATION: Hypoxia, follow-up COMPARISON: Chest 09/17/2020 TECHNIQUE: Frontal view of the chest was obtained. FINDINGS: The lungs are well-expanded with patchy opacity right lung base likely atelectasis or infiltrate.. Heart size and pulmonary vascularity is within normal limits. There is mild blunting of right CP angle from pleural thickening or effusion. No gross bony abnormality seen. XR/XR chest 1V IMPRESSION: Right lower lobe electrodes is or infiltrate, new since 09/17/2020. Small right pleural effusion, new since previous exam 09/17/2020.
--- NOTE | ~2020-09-17 | XR_ITS ---
EXAMINATION: XR CHEST CLINICAL INFORMATION: Weakness. COMPARISON: Chest done on 08/19/2020. TECHNIQUE: Frontal view of the chest was obtained. FINDINGS: No significant abnormality is noted involving the heart, lungs, mediastinum, bony thorax or soft tissues. No significant change. XR/XR chest 1V IMPRESSION: Unremarkable examination.
--- NOTE | ~2020-09-17 | MR_ITS ---
MRI OF THE BRAIN WITHOUT IV CONTRAST INDICATION: Aphasia. COMPARISON: Brain MRI 07/24/2020. TECHNIQUE: Multiplanar multisequence MR imaging of the brain was obtained without IV contrast. FINDINGS: There is global cerebral volume loss, there is advanced chronic microangiopathy, and there are chronic infarcts within the right parietal lobe and the left parieto-occipital lobe. Chronic lacunar infarcts within the cerebellar hemispheres and the right thalamus. There is no hydrocephalus, extra-axial surface collection, or herniation. The major flow voids at the skull base are preserved. There is no acute infarct on diffusion-weighted imaging. There is no intracranial hemorrhage on the gradient recalled echo acquisition. The midline structures are normal. The cerebellar tonsils are normally positioned. The craniocervical junction is normal. Osseous marrow signal intensity is homogenous. The visualized soft tissues are unremarkable. There is moderate mucosal thickening within the right maxillary sinus, mild mucosal thickening within the left maxillary sinus, and mild mucosal thickening throughout the ethmoid air cells and frontal sinuses bilaterally. The mastoid air cells are clear. MR/MR head/brain wo con IMPRESSION: - No acute intracranial findings. No acute infarcts. - There is global cerebral volume loss, there is advanced chronic microangiopathy, and there are chronic infarcts within the right parietal lobe and the left parieto-occipital lobe. Chronic lacunar infarcts within the cerebellar hemispheres and the right thalamus.
--- NOTE | 2020-09-17 10:28 | ECG_ITS ---
Test Reason : STROKE PROTOCOL Blood Pressure : / mmHG Vent. Rate : 094 BPM Atrial Rate : 094 BPM P-R Int : 158 ms QRS Dur : 090 ms QT Int : 364 ms P-R-T Axes : 075 075 043 degrees QTc Int : 455 ms Normal sinus rhythm Normal ECG When compared with ECG of 24-JUL-2020 10:13, No significant change was found Referred By: Carlton Angela Electronically Signed By:MICHELLE ALVARADO MD
[2020-09-17 10:38] VITALS: BP 129/81; BP 166/75; PULSE 92; PULSE 94; RESP 20; TEMP 36.3; O2SAT 92; O2SAT 96; BMI 25.4
[2020-09-17 10:45] LABS: Prothrombin Time Whole Bld POC 12.4 sec (11.1-13.5)
[2020-09-17 10:45] LABS: Glucose, Whole Blood 366 mg/dL (60-115)
--- NOTE | 2020-09-17 10:58 | PC.NURSE ---
labs obtained and ekg completed. pt/inr and poc also obtained. ct scan completed on arrival.
[2020-09-17 10:59] LABS: MANUAL DIFF FLAG NO
[2020-09-17 11:07] LABS: INTERNATIONAL NORM RATIO 0.9 (0.9-1.1)
[2020-09-17 11:09] LABS: Basophils Percent Auto 0.2 % (0-2); Eosinophils Percent Auto 0.1 % (0-4); Hematocrit 30.2 % (42-52); Hemoglobin 10.5 g/dl (14.0-18.0); Imm Gran Abs Auto 0.03 X10*3/uL (0.00-0.03); Imm Gran Pct Auto 0.4 % (0.0-0.4); Lymphocytes Absolute Auto 0.8 X10*3/uL (1.2-4.9); Lymphocytes Percent Auto 9.5 % (20-40); Mean Corpuscular HGB Conc 34.8 g/dl (31.0-36.0); Mean Corpuscular Hemoglobin 28.3 pg (27.0-33.0); Mean Corpuscular Volume 81.4 fL (80-98); Mean Platelet Volume 8.7 fL (9.4-12.4); Monocytes Absolute Auto 0.7 X10*3/uL (0.1-1.2); Monocytes Percent Auto 8.6 % (2-11); Neutrophils Absolute Auto 6.8 X10*3/uL (2.0-8.3); Neutrophils Percent Auto 81.2 % (45-73); Partial Thromboplastin Time 31.9 SEC (24.1-38.0); Platelet Count 381 X10*3/uL (160-400); Red Blood Count 3.71 X10*6/uL (4.60-5.80); Red Cell Distribution Width 14.4 % (11.0-16.0); White Blood Count 8.4 X10*3/uL (4.8-10.8)
[2020-09-17 11:11] LABS: Stroke Lab Use COMPLETE
--- NOTE | 2020-09-17 11:16 | ED_ITS ---
HPI - Neuro Symptoms/Deficit General Chief Complaint: Neuro Symptoms/Deficit Stated Complaint: ?stroke Time Seen by Provider: 09/17/20 10:28 Source: family (Patient's , Chelle and the patient's son Felipe) and EMS Mode of arrival: EMS Limitations: no limitations History of Present Illness HPI Narrative: 70-year-old male who presents emergency department for evaluation of expressive aphasia. Information was obtained from the patient's and from the patient's son. According to the , the patient woke up this morning at 7:30 a.m. and appeared to be well and at his baseline. The patient has had a decreased appetite over the past 2 weeks and did not eat is old meal. At around 9:30 a.m., while he was sitting at the table, had a sudden onset of expressive aphasia. His family states that he was talking but not answering questions appropriately and what he was saying was not making sense. The also states the patient appeared to be slightly more lethargic than he was prior to the onset of the symptoms. The patient had a similar presentation on July 24, 2020 and was admitted to hospital for workup for an expressive aphasia. The patient had an MRI of the brain that revealed no acute stroke but multiple other abnormalities consistent with previous strokes and ischemic disease. He had an EEG which revealed no abnormal activity. The diagnosis at that time was metabolic encephalopathy which was multifactorial secondary to urinary tract infection, acute kidney injury and alcohol use disorder. According to the family, the patient continues to drink 6-7 beers per day. Patient last drank around 7:00 p.m. yesterday. The family did not notice any seizure-like activity but the family states the does have shaking at his baseline. The patient's sent a urine for culture yesterday and the culture shows no growth today. The family states that the patient has lost approximately 10 lb the last week secondary to very poor appetite. Related Data Home Medications Medication Instructions Recorded Confirmed tamsulosin 0.4 mg capsule 0.4 mg PO DAILY 08/23/20 09/17/20 terazosin 10 mg PO DAILY 09/17/20 09/17/20 Previous Rx's Medication Instructions Recorded atorvastatin 80 mg tablet 80 mg PO BEDTIME 90 Days #90 tab 04/04/20 amlodipine 10 mg tablet 10 mg PO DAILY 90 Days #90 tab 05/09/20 clopidogrel 75 mg tablet 75 mg PO DAILY #90 tab 07/11/20 bethanechol chloride 50 mg tablet 50 mg PO BID 90 Days #180 tab 08/05/20 furosemide 20 mg tablet 20 mg PO QAM 20 Days #20 tab 08/23/20 Allergies Allergy/AdvReac Type Severity Reaction Status Date / Time clams Allergy Severe SWELLING Verified 09/07/20 09:36 Review of Systems Review of Systems: Yes Unobtainable due to mental status (Expressive aphasia) Neurologic: Reports Abnormal speech present [facility] Past Medical History Medical History (Updated 09/17/20 @ 14:13 by Jorge Zhang MD) BPH (benign prostatic hyperplasia) Carotid artery narrowing Central pontine myelinolysis Cerebral atrophy Cerebral microvascular disease Chronic hyponatremia COPD (chronic obstructive pulmonary disease) Diabetes ETOH abuse Hyperlipidemia Multiple cerebral infarctions Peripheral arterial disease Presence of arterial stent Sensory aphasia determined by examination Toxic myopathy Family History Family History Father Parkinsons disease Mother Diabetes Social History Social History (Updated 09/07/20 @ 09:37 by SUSI Peraza) Household Members: Spouse Housing: House Do you presently have visiting nurse or other home services: No Alcohol intake: never Patient Tobacco Use Status: Current everyday Tobacco user Tobacco use type: Cigarette Cigarette Packs Per Day: 1 Years Smoked: 35 Use of substances other than those prescribed or required for medical reasons: No Advance Directives: Yes Advance Directives on File: Yes Advance Directives Date on File: 07/24/20 Do you have thoughts of harming others: None Do you have a plan to hurt others: No Plan Recently lost weight without trying: Yes How much weight loss: 2-13 pounds Eating poorly because of decreased appetite: Yes Nutrition screen score: 4 service: Yes Physical Exam Vital Signs: Vital Signs: Last Vital Signs Temp 98 F 09/17/20 18:24 Pulse 90 09/17/20 18:24 Resp 18 09/17/20 18:24 BP 152/71 H 09/17/20 18:24 Pulse Ox 92 09/17/20 18:24 Body Mass Index 25.4 Const: Other: The patient is awake, alert, the patient follows simple commands, he does try to answer questions but his language is incomprehensible and not related to question. He does not appear to be in distress. HENMT: Head: Yes normal to inspection, Yes normocephalic and Yes atraumatic Ears: external ears normal General nose exam: Normal external nose present Face and sinus: Yes normal facial exam Mouth: Normal oral and palatal mucosa present Throat: Yes posterior oropharynx normal Eyes: Periorbital: periorbital findings normal Eyelids: Yes eyelids normal Conjunctivae: conjunctivae normal Sclerae: sclerae normal Corneas: corneas normal Pupils: Equal, round and reactive pupils present Direct Ophthalmoscopy: normal light reflex Neck: Neck: Yes full ROM, Yes no lymphadenopathy, Yes no meningeal signs, Yes trachea midline and Yes supple Chest: Chest palpation & inspection: normal inspection of the chest and normal palpation of entire chest wall Resp: Effort & Inspection: normal respiratory effort and able to speak in complete sentences Auscultation: clear to auscultation bilaterally Cardio: Rate: regular rate Rhythm: regular rhythm Heart sounds: S1 normal heart sound present, S2 normal heart sound present and no murmurs GI: Inspection: Yes normal to inspection Palpation (GI): Soft to palpation, nontender, no guarding, not rigid and No hepatosplenomegaly present : General: Yes no CVA tenderness Back/Spine/Pelvis: Back: no CVA tenderness Cervical Spine: normal cervical lordosis Thoracic/Lumbar Spine: thoracic and lumbar spine normal to inspection Skin: Lesions: no lesions Rashes: no rashes Wounds: no wounds Neuro: General: no meningeal signs Cranial nerves: Yes CN's II-XII intact bilaterally and Yes Equal, round and reactive pupils present Speech: Abnormal speech present Details: expressive aphasia Motor exam (neuro): 5/5 motor strength present throughout Extrem: General: Yes normal to inspection and Yes full ROM Psych: Appearance: well kempt Attitude: cooperative Course Course Course Narrative: 70-year-old male who presents emergency department for evaluation of sudden onset of expressive aphasia at 9:30 a.m.. The patient's physical examination on presentation revealed expressive aphasia so he was sent immediately to CT scanner as per our stroke protocol. The patient's exam was otherwise unremarkable except for as expressive aphasia. The patient's CT scan of the brain revealed no acute finding but he does have chronic changes. The patient does take aspirin and Plavix. I did discuss the patient's presentation with our covering neurologist Dr. Barros at 11:18 a.m.. Given the fact that the patient had a similar presentation 2 months prior with a negative stroke workup and the fact that he is on aspirin, Plavix and has a low NIH stroke scale was felt that the patient was not a thrombolytics candidate. I did discuss this with the patient's family and they agreed as well that the patient should not received thrombolytics. 1157: Laboratory evaluation revealed a low H&H of 10.5 and 30.2 appears to be chronic, he has a normal MCV of 81.4. Coags were normal. Comprehensive metabolic panel revealed a low sodium of 123, slightly elevated potassium of 5. 4, low bicarb of 91. Patient does have an elevated glucose of 310. LFTs are normal. Urinalysis is pending however urinalysis from yesterday revealed 10-14 white blood cells and trace bacteria with no growth on the urine culture today. Alcohol level was below detectable limits. High sensitivity troponin was detectable but not elevated at 8.1. I will discuss this patient's presentation with the covering hospitalist. 1342: Patient continues to have an expressive aphasia. I did discuss the [place]'s presentation with the covering hospitalist and the patient will be admitted for further treatment. MDM - Neuro Symptoms/Deficit Lab Data Result diagrams: 09/17/20 10:55 09/17/20 10:55 Labs: Lab Results 09/17/20 09/17/20 09/17/20 Range/Units 10:39 10:40 10:55 WBC 8.4 (4.8-10.8) X10*3/uL RBC 3.71 L (4.60-5.80) X10*6/uL Hgb 10.5 L (14.0-18.0) g/dl Hct 30.2 L (42-52) % MCV 81.4 (80-98) fL MCH 28.3 (27.0-33.0) pg MCHC 34.8 (31.0-36.0) g/dl RDW 14.4 (11.0-16.0) % Plt Count 381 D (160-400) X10*3/uL MPV 8.7 L (9.4-12.4) fL Immature Gran % (Auto) 0.4 (0.0-0.4) % Neut % (Auto) 81.2 H (45-73) % Lymph % (Auto) 9.5 L (20-40) % Emmet % (Auto) 8.6 (2-11) % Eos % (Auto) 0.1 (0-4) % Baso % (Auto) 0.2 (0-2) % Lymph # (Auto) 0.8 L (1.2-4.9) X10*3/uL Emmet # (Auto) 0.7 (0.1-1.2) X10*3/uL Eos # (Auto) 0.0 (0.0-0.4) X10*3/uL Baso # (Auto) 0.0 (0.0-0.2) X10*3/uL Abs Immat Gran (auto) 0.03 (0.00-0.03) X10*3/uL Absolute Neuts (auto) 6.8 (2.0-8.3) X10*3/uL Absolute Nucleated RBC 0.000 (0.0-0.012) X10*3/uL Nucleated RBC % (auto) 0.0 (0.0-0.2) /100WBC PT (10.8-13.0) SEC Whole Blood PT 12.4 (11.1-13.5) sec INR (0.9-1.1) Whole Blood INR 1.0 (0.9-1.1) APTT (24.1-38.0) SEC Sodium (135-145) mmol/L Potassium (3.3-5.1) mmol/L Chloride (96-108) mmol/L Carbon Dioxide (22-29) mmol/L Anion Gap (12-20) BUN (9-16) mg/dL Creatinine (0.5-1.4) mg/dL Estim Creat Clear Calc Estimated GFR POC Glucose 366 H* (60-115) mg/dL Random Glucose (60-115) mg/dL Osmolality (281-305) mosm/kg Lactic Acid (0.5-2.0) mmol/L Calcium (8.4-10.2) mg/dL Total Bilirubin (0.0-1.0) mg/dL Direct Bilirubin (0.0-0.5) mg/dL AST (5-37) U/L ALT (0-40) U/L Alkaline Phosphatase (39-117) U/L Total Creatine Kinase (38-174) U/L Troponin I High Sens (<3.5-35.0) ng/L Total Protein (6.5-8.0) g/dL Albumin (3.5-5.0) g/dL Ethyl Alcohol mg/dL COVID-19 (BREANNA) (Negative) COVID-19 Clin Com 09/17/20 09/17/20 09/17/20 Range/Units 10:55 10:55 10:55 WBC (4.8-10.8) X10*3/uL RBC (4.60-5.80) X10*6/uL Hgb (14.0-18.0) g/dl Hct (42-52) % MCV (80-98) fL MCH (27.0-33.0) pg MCHC (31.0-36.0) g/dl RDW (11.0-16.0) % Plt Count (160-400) X10*3/uL MPV (9.4-12.4) fL Immature Gran % (Auto) (0.0-0.4) % Neut % (Auto) (45-73) % Lymph % (Auto) (20-40) % Emmet % (Auto) (2-11) % Eos % (Auto) (0-4) % Baso % (Auto) (0-2) % Lymph # (Auto) (1.2-4.9) X10*3/uL Emmet # (Auto) (0.1-1.2) X10*3/uL Eos # (Auto) (0.0-0.4) X10*3/uL Baso # (Auto) (0.0-0.2) X10*3/uL Abs Immat Gran (auto) (0.00-0.03) X10*3/uL Absolute Neuts (auto) (2.0-8.3) X10*3/uL Absolute Nucleated RBC (0.0-0.012) X10*3/uL Nucleated RBC % (auto) (0.0-0.2) /100WBC PT 11.0 (10.8-13.0) SEC Whole Blood PT (11.1-13.5) sec INR 0.9 (0.9-1.1) Whole Blood INR (0.9-1.1) APTT 31.9 (24.1-38.0) SEC Sodium 123 L (135-145) mmol/L Potassium 5.4 H D (3.3-5.1) mmol/L Chloride 91 L (96-108) mmol/L Carbon Dioxide 22 (22-29) mmol/L Anion Gap 15 (12-20) BUN 13 (9-16) mg/dL Creatinine 1.21 (0.5-1.4) mg/dL Estim Creat Clear Calc 42.6 Estimated GFR 59 POC Glucose (60-115) mg/dL Random Glucose 310 H D (60-115) mg/dL Osmolality (281-305) mosm/kg Lactic Acid (0.5-2.0) mmol/L Calcium 8.3 L (8.4-10.2) mg/dL Total Bilirubin 0.4 (0.0-1.0) mg/dL Direct Bilirubin 0.2 (0.0-0.5) mg/dL AST 29 (5-37) U/L ALT 12 (0-40) U/L Alkaline Phosphatase 115 (39-117) U/L Total Creatine Kinase 136 D (38-174) U/L Troponin I High Sens 8.1 (<3.5-35.0) ng/L Total Protein 6.6 (6.5-8.0) g/dL Albumin 3.6 (3.5-5.0) g/dL Ethyl Alcohol mg/dL COVID-19 (BREANNA) (Negative) COVID-19 Clin Com 09/17/20 09/17/20 09/17/20 Range/Units 10:55 10:55 12:06 WBC (4.8-10.8) X10*3/uL RBC (4.60-5.80) X10*6/uL Hgb (14.0-18.0) g/dl Hct (42-52) % MCV (80-98) fL MCH (27.0-33.0) pg MCHC (31.0-36.0) g/dl RDW (11.0-16.0) % Plt Count (160-400) X10*3/uL MPV (9.4-12.4) fL Immature Gran % (Auto) (0.0-0.4) % Neut % (Auto) (45-73) % Lymph % (Auto) (20-40) % Emmet % (Auto) (2-11) % Eos % (Auto) (0-4) % Baso % (Auto) (0-2) % Lymph # (Auto) (1.2-4.9) X10*3/uL Emmet # (Auto) (0.1-1.2) X10*3/uL Eos # (Auto) (0.0-0.4) X10*3/uL Baso # (Auto) (0.0-0.2) X10*3/uL Abs Immat Gran (auto) (0.00-0.03) X10*3/uL Absolute Neuts (auto) (2.0-8.3) X10*3/uL Absolute Nucleated RBC (0.0-0.012) X10*3/uL Nucleated RBC % (auto) (0.0-0.2) /100WBC PT (10.8-13.0) SEC Whole Blood PT (11.1-13.5) sec INR (0.9-1.1) Whole Blood INR (0.9-1.1) APTT (24.1-38.0) SEC Sodium (135-145) mmol/L Potassium (3.3-5.1) mmol/L Chloride (96-108) mmol/L Carbon Dioxide (22-29) mmol/L Anion Gap (12-20) BUN (9-16) mg/dL Creatinine (0.5-1.4) mg/dL Estim Creat Clear Calc Estimated GFR POC Glucose (60-115) mg/dL Random Glucose (60-115) mg/dL Osmolality 270 L (281-305) mosm/kg Lactic Acid 1.8 (0.5-2.0) mmol/L Calcium (8.4-10.2) mg/dL Total Bilirubin (0.0-1.0) mg/dL Direct Bilirubin (0.0-0.5) mg/dL AST (5-37) U/L ALT (0-40) U/L Alkaline Phosphatase (39-117) U/L Total Creatine Kinase (38-174) U/L Troponin I High Sens (<3.5-35.0) ng/L Total Protein (6.5-8.0) g/dL Albumin (3.5-5.0) g/dL Ethyl Alcohol < 10 mg/dL COVID-19 (BREANNA) (Negative) COVID-19 Clin Com 09/17/20 09/17/20 Range/Units 12:06 12:11 WBC (4.8-10.8) X10*3/uL RBC (4.60-5.80) X10*6/uL Hgb (14.0-18.0) g/dl Hct (42-52) % MCV (80-98) fL MCH (27.0-33.0) pg MCHC (31.0-36.0) g/dl RDW (11.0-16.0) % Plt Count (160-400) X10*3/uL MPV (9.4-12.4) fL Immature Gran % (Auto) (0.0-0.4) % Neut % (Auto) (45-73) % Lymph % (Auto) (20-40) % Emmet % (Auto) (2-11) % Eos % (Auto) (0-4) % Baso % (Auto) (0-2) % Lymph # (Auto) (1.2-4.9) X10*3/uL Emmet # (Auto) (0.1-1.2) X10*3/uL Eos # (Auto) (0.0-0.4) X10*3/uL Baso # (Auto) (0.0-0.2) X10*3/uL Abs Immat Gran (auto) (0.00-0.03) X10*3/uL Absolute Neuts (auto) (2.0-8.3) X10*3/uL Absolute Nucleated RBC (0.0-0.012) X10*3/uL Nucleated RBC % (auto) (0.0-0.2) /100WBC PT (10.8-13.0) SEC Whole Blood PT (11.1-13.5) sec INR (0.9-1.1) Whole Blood INR (0.9-1.1) APTT (24.1-38.0) SEC Sodium (135-145) mmol/L Potassium (3.3-5.1) mmol/L Chloride (96-108) mmol/L Carbon Dioxide (22-29) mmol/L Anion Gap (12-20) BUN (9-16) mg/dL Creatinine (0.5-1.4) mg/dL Estim Creat Clear Calc Estimated GFR POC Glucose (60-115) mg/dL Random Glucose (60-115) mg/dL Osmolality (281-305) mosm/kg Lactic Acid (0.5-2.0) mmol/L Calcium (8.4-10.2) mg/dL Total Bilirubin (0.0-1.0) mg/dL Direct Bilirubin (0.0-0.5) mg/dL AST (5-37) U/L ALT (0-40) U/L Alkaline Phosphatase (39-117) U/L Total Creatine Kinase (38-174) U/L Troponin I High Sens (<3.5-35.0) ng/L Total Protein (6.5-8.0) g/dL Albumin (3.5-5.0) g/dL Ethyl Alcohol < 10 mg/dL COVID-19 (BREANNA) Negative (Negative) COVID-19 Clin Com See Note NIH Stroke Scale Internal: Initial- Upon Arrival Level of Consciousness: Alert Level of Consciousness Questions: Answers neither question correctly Level of Consciousness Commands: Performs both tasks correctly Best Gaze: Normal Visual: No visual loss Facial Palsy: Normal Motor Arm (Right): No drift Motor Arm (Left): No drift Motor Leg (Right): No drift Motor Leg (Left): No drift Limb Ataxia: Absent Sensory: Normal Best Language: Severe aphasia Dysarthia: Normal Extinction and Inattention: No abnormality Score: 4 Critical Care Time Critical Care Time Critical Care Time: Yes Total Critical Care Time: 45 Attestation: Critical Care: The patient was critically ill with a high probability of imminent or life threatening deterioration. I spent greater than 30 minutes of discontinuous time evaluating the patient,delivering critical care at the bedside, discussing and evaluating pertinent data with consultants. Critical care time does not include time spent performing separately billable procedures or teaching. Total time spent performing critical care was minutes. Discharge Plan Discharge Clinical Impression: Expressive aphasia, Alcohol use disorder, Acute hyponatremia Patient Disposition: Admitted As Inpatient Discharge Date/Time: 09/17/20 17:54
[2020-09-17 11:29] LABS: Ethanol < 10 mg/dL
[2020-09-17 11:36] LABS: Troponin-I High Sensitivity 8.1 ng/L (<3.5-35.0)
[2020-09-17 11:40] LABS: Alanine Aminotransferase 12 U/L (0-40); Albumin Level 3.6 g/dL (3.5-5.0); Alkaline Phosphatase 115 U/L (39-117); Anion Gap 15 (12-20); Aspartate Amino Transferase 29 U/L (5-37); Bilirubin Direct 0.2 mg/dL (0.0-0.5); Bilirubin Total 0.4 mg/dL (0.0-1.0); Blood Urea Nitrogen 13 mg/dL (9-16); Calcium 8.3 mg/dL (8.4-10.2); Carbon Dioxide 22 mmol/L (22-29); Chloride 91 mmol/L (96-108); Creatinine Clr Calc Pharmacy 42.6; Estimated Glomerular Filt Rate 59; Glucose Random 310 mg/dL (60-115); Potassium 5.4 mmol/L (3.3-5.1); Sodium 123 mmol/L (135-145); Total Protein 6.6 g/dL (6.5-8.0)
[2020-09-17] MEDS: Aspirin 81 MG TAB.CHEW 324 MG PO (11:47)
--- NOTE | 2020-09-17 11:54 | PC.NURSE ---
pt demanding to go home, pt not redirectable. some difficulty chewing and swallowing pills.
[2020-09-17] MEDS: LORazepam 2 MG/ML VIAL 1 MG IVPUSH (12:17)
--- NOTE | 2020-09-17 12:20 | PC.NURSE ---
per md, family reports drinking more than 6 beers a day
[2020-09-17 12:27] LABS: Lactic Acid 1.8 mmol/L (0.5-2.0)
[2020-09-17 12:28] LABS: Ethanol < 10 mg/dL
[2020-09-17 12:36] LABS: Osmolality, Serum 270 mosm/kg (281-305)
[2020-09-17 12:38] LABS: COVID-19 Test Negative (Negative)
--- NOTE | 2020-09-17 13:56 | PM.IMHP ---
History of Present Illness Date of Service: 09/17/20 Chief Complaint: ams 70M presented with AMS. patient was at baseline when awakening this AM. at 930am patient had witnessed sudden onset expressive aphasia. He was talking but not making sense. He was not answering questions. He appeared more lethargic. Of note patient has been having worsening diet over the last several weeks and having weight loss. He does drink 6-7 beers per day. He was brought to the ED with concern for CVA. CT head was negative. His last drink was 19:00 yesterday. Alcohol level was negative. Patient found to have hyponatremia of 123. He is more alert and talkative at the time of this interview. Review of Systems Review of Systems: Constitutional: Denies fever, denies Chills Eyes: denies blurry vision ENT: denies sore throat CVS: denies chest pain Respiratory: Denies dyspnea GI: no abdominal pain : denies dysuria MSK: denies neck pain Skin: denies rash Neuro: denies specific motor weakness Psych: denies suicidal ideation Endocrine: denies heat/cold intoleratnce Hematologic: denies easy bleeding Allergy: denies hives [facility] Medical History Acute alteration in mental status Acute hyperkalemia BPH (benign prostatic hyperplasia) Carotid artery narrowing Central pontine myelinolysis Cerebral atrophy Cerebral microvascular disease Chronic hyponatremia COPD (chronic obstructive pulmonary disease) Diabetes Encephalopathy ETOH abuse Gross hematuria Hyperlipidemia Hypertension Multifactorial dementia Multiple cerebral infarctions Peripheral arterial disease Presence of arterial stent PVD (peripheral vascular disease) Renal failure Sensory aphasia determined by examination Sepsis Smoker Toxic myopathy Urological system complication of procedure Family History Father Parkinsons disease Mother Diabetes Family history: reviewed and not pertinent Social History (Updated 09/07/20 @ 09:37 by SUSI Peraza) Household Members: Family Housing: House Do you presently have visiting nurse or other home services: No Alcohol intake: never Patient Tobacco Use Status: Current everyday Tobacco user Tobacco use type: Cigarette Cigarette Packs Per Day: 1 Years Smoked: 35 Use of substances other than those prescribed or required for medical reasons: No Advance Directives: Yes Advance Directives on File: Yes Advance Directives Date on File: 07/24/20 service: Yes Meds Allergies Allergy/AdvReac Type Severity Reaction Status Date / Time clams Allergy Severe SWELLING Verified 09/07/20 09:36 Home Medications Medication Instructions Recorded Confirmed Last Taken Type tamsulosin 0.4 mg capsule 0.4 mg PO DAILY 08/23/20 09/17/20 Unknown History terazosin 10 mg PO DAILY 09/17/20 09/17/20 Unknown History Physical Exam Vital Signs and Narrative: Vital Signs: Last Vital Signs Temp 97.4 F 09/17/20 10:38 Pulse 92 09/17/20 10:38 Resp 20 09/17/20 10:38 BP 166/75 H 09/17/20 10:38 Pulse Ox 92 09/17/20 10:38 Body Mass Index 25.4 General: NAD HEENT: atraumatic Neck: normal to visual inspection CVS: S1, S2, RRR Resp: CTA bilateral Chest: non tender GI: soft, non tender, non distended : no CVA tenderness Skin: no rashes Extremities: no edema Neuro: Oriented to person, place, not clear what happened, tremulous, able to follow commands, no signs of aphasia at this time Psych: cooperative Results Labs CBC and Chem 7: 09/17/20 10:55 09/17/20 10:55 Labs: Laboratory Results - last 24 hr 09/17/20 09/17/20 09/17/20 10:39 10:40 10:55 MCV 81.4 MCH 28.3 MCHC 34.8 RDW 14.4 Plt Count 381 D MPV 8.7 L Immature Gran % (Auto) 0.4 Neut % (Auto) 81.2 H Lymph % (Auto) 9.5 L Webb % (Auto) 8.6 Eos % (Auto) 0.1 Baso % (Auto) 0.2 Lymph # (Auto) 0.8 L Webb # (Auto) 0.7 Eos # (Auto) 0.0 Baso # (Auto) 0.0 Abs Immat Gran (auto) 0.03 Absolute Neuts (auto) 6.8 Absolute Nucleated RBC 0.000 Nucleated RBC % (auto) 0.0 PT Whole Blood PT 12.4 INR Whole Blood INR 1.0 APTT Anion Gap Estim Creat Clear Calc Estimated GFR POC Glucose 366 H* Random Glucose Osmolality Lactic Acid Calcium Total Bilirubin Direct Bilirubin AST ALT Alkaline Phosphatase Total Creatine Kinase Troponin I High Sens Total Protein Albumin Ethyl Alcohol COVID-19 (BREANNA) COVID-19 [employer] 09/17/20 09/17/20 09/17/20 10:55 10:55 10:55 MCV MCH MCHC RDW Plt Count MPV Immature Gran % (Auto) Neut % (Auto) Lymph % (Auto) Webb % (Auto) Eos % (Auto) Baso % (Auto) Lymph # (Auto) Webb # (Auto) Eos # (Auto) Baso # (Auto) Abs Immat Gran (auto) Absolute Neuts (auto) Absolute Nucleated RBC Nucleated RBC % (auto) PT 11.0 Whole Blood PT INR 0.9 Whole Blood INR APTT 31.9 Anion Gap 15 Estim Creat Clear Calc 42.6 Estimated GFR 59 POC Glucose Random Glucose 310 H D Osmolality Lactic Acid Calcium 8.3 L Total Bilirubin 0.4 Direct Bilirubin 0.2 AST 29 ALT 12 Alkaline Phosphatase 115 Total Creatine Kinase 136 D Troponin I High Sens 8.1 Total Protein 6.6 Albumin 3.6 Ethyl Alcohol COVID-19 (BREANNA) [employer] 09/17/20 09/17/20 09/17/20 10:55 10:55 12:06 MCV MCH MCHC RDW Plt Count MPV Immature Gran % (Auto) Neut % (Auto) Lymph % (Auto) Webb % (Auto) Eos % (Auto) Baso % (Auto) Lymph # (Auto) Webb # (Auto) Eos # (Auto) Baso # (Auto) Abs Immat Gran (auto) Absolute Neuts (auto) Absolute Nucleated RBC Nucleated RBC % (auto) PT Whole Blood PT INR Whole Blood INR APTT Anion Gap Estim Creat Clear Calc Estimated GFR POC Glucose Random Glucose Osmolality 270 L Lactic Acid 1.8 Calcium Total Bilirubin Direct Bilirubin AST ALT Alkaline Phosphatase Total Creatine Kinase Troponin I High Sens Total Protein Albumin Ethyl Alcohol < 10 COVID-19 (BREANNA) COVID-19 [employer] 09/17/20 09/17/20 12:06 12:11 MCV MCH MCHC RDW Plt Count MPV Immature Gran % (Auto) Neut % (Auto) Lymph % (Auto) Webb % (Auto) Eos % (Auto) Baso % (Auto) Lymph # (Auto) Webb # (Auto) Eos # (Auto) Baso # (Auto) Abs Immat Gran (auto) Absolute Neuts (auto) Absolute Nucleated RBC Nucleated RBC % (auto) PT Whole Blood PT INR Whole Blood INR APTT Anion Gap Estim Creat Clear Calc Estimated GFR POC Glucose Random Glucose Osmolality Lactic Acid Calcium Total Bilirubin Direct Bilirubin AST ALT Alkaline Phosphatase Total Creatine Kinase Troponin I High Sens Total Protein Albumin Ethyl Alcohol < 10 COVID-19 (BREANNA) Negative COVID-19 Clin Com See Note Imaging Radiologist's Impressions: Impressions Chest X-Ray 09/17/20 10:28 IMPRESSION: Unremarkable examination. Head CT 09/17/20 10:28 IMPRESSION: 1. No evidence of acute intracranial abnormality. 2. Extensive small vessel ischemic disease with old infarct in the left posterior parietal lobe. This critical result was discussed with Dr. Angela at 1044 hours hours on 09/17/2020. It was ascertained that the content and urgency of the report was understood at the time of direct communication. Assessment and Plan (1) Expressive aphasia: Status: Acute 70M presented with expressive aphasia, found to have hyponatremia expressive aphasia differential includes CVA/TIA, wernickes, etoh withdrawl continue plavix statin follow up neuro thiamine, mvi check b1 phenobarb protocol hyponatremia likely beer potomania hold lasix fluid restrict monitor nephro eval HTN amlodipine COPD stable BPH flomax vte prophylaxis - xarelto
--- NOTE | 2020-09-17 14:13 | PM.NEUROCN ---
History of Present Illness Data of Consult Service Date: 09/17/20 Primary Care Provider: Joe Farris, [facility] 70 years old man who came to hospital difficulty speaking. He was noted to have expressive aphasia but also his sodium was quite low. When I saw him he was not having any difficulty speaking. There was no associated arm or leg weakness. There was no visual symptoms or dizziness or discomfort or pain. Review of Systems Review of Systems: No recent cold or flu-like illness PMFSH Past Medical History Medical History (Updated 09/17/20 @ 14:13 by Jorge Zhang MD) BPH (benign prostatic hyperplasia) Carotid artery narrowing Central pontine myelinolysis Cerebral atrophy Cerebral microvascular disease Chronic hyponatremia COPD (chronic obstructive pulmonary disease) Diabetes ETOH abuse Hyperlipidemia Multiple cerebral infarctions Peripheral arterial disease Presence of arterial stent Sensory aphasia determined by examination Toxic myopathy Family History Family History Father Parkinsons disease Mother Diabetes Family history: reviewed and not pertinent Social History Social History (Updated 09/07/20 @ 09:37 by Jessica Bangura Johnny) Household Members: Family Housing: House Do you presently have visiting nurse or other home services: No Alcohol intake: never Patient Tobacco Use Status: Current everyday Tobacco user Tobacco use type: Cigarette Cigarette Packs Per Day: 1 Years Smoked: 35 Use of substances other than those prescribed or required for medical reasons: No Advance Directives: Yes Advance Directives on File: Yes Advance Directives Date on File: 07/24/20 service: Yes Meds Allergies Allergy/AdvReac Type Severity Reaction Status Date / Time clams Allergy Severe SWELLING Verified 09/07/20 09:36 Active Medications: Current Medications Generic Name Dose Route Start Last Admin Trade Name Freq PRN Reason Stop Dose Admin Insulin Human Lispro 0 unit 09/17/20 16:30 Insulin Lispro 100 Unit/Ml 3 Ml Vial SUBCUT [facility] Protocol Home Medications Medication Instructions Recorded Confirmed Last Taken Type tamsulosin 0.4 mg capsule 0.4 mg PO DAILY 08/23/20 09/17/20 Unknown History terazosin 10 mg PO DAILY 09/17/20 09/17/20 Unknown History Physical Exam Vital Signs: Vital Signs: Last Vital Signs Temp 97.4 F 09/17/20 10:38 Pulse 92 09/17/20 10:38 Resp 20 09/17/20 10:38 BP 166/75 H 09/17/20 10:38 Pulse Ox 92 09/17/20 10:38 Body Mass Index 25.4 Alert and awake with normal spontaneity of speech fluency comprehension and affect. Face was symmetrical. Tongue was midline. He was moving his all 4 extremities without difficulty. Deep tendon reflexes were 2+ with flexor plantars. Results Labs CBC & Chem 7: 09/17/20 10:55 09/17/20 10:55 Labs: Short CBC 09/17/20 Range/Units 10:55 WBC 8.4 (4.8-10.8) X10*3/uL Hgb 10.5 L (14.0-18.0) g/dl Hct 30.2 L (42-52) % Plt Count 381 D (160-400) X10*3/uL BMP 09/17/20 10:55 Sodium 123 L Potassium 5.4 H D Chloride 91 L Carbon Dioxide 22 BUN 13 Creatinine 1.21 Calcium 8.3 L Cardiac Enzymes 09/17/20 Range/Units 10:55 Total Creatine Kinase 136 D (38-174) U/L Liver Function 09/17/20 Range/Units 10:55 Total Bilirubin 0.4 (0.0-1.0) mg/dL Direct Bilirubin 0.2 (0.0-0.5) mg/dL AST 29 (5-37) U/L ALT 12 (0-40) U/L Alkaline Phosphatase 115 (39-117) U/L Albumin 3.6 (3.5-5.0) g/dL His noncontrast head CT revealed moderately severe diffuse cerebral atrophy and moderate to severe chronic hypodense signal abnormality suggestive of ischemic lesions in the white matter. Assessment and Plan (1) Expressive aphasia: Status: Acute At this time there was no significant language difficulty. He had significantly low sodium that could trigger seizure disorder though he did not seem to be seizing at that time. His baseline brain CT scan reveals significant atrophy and vascular disease that put him at risk for seizures. In any case at this time mainstay of management is treatment of hyponatremia. As far as vascular disease is concerned, baby aspirin daily in control of other vascular risk factors should continue. With this amount of atrophy and vascular injury, I would suspect moderate to severe underlying multifactorial dementia. Procedures Date of Service Date of Service: 09/17/20
[2020-09-17 15:30] VITALS: BP 169/82; PULSE 90; RESP 18; O2SAT 94
--- NOTE | 2020-09-17 17:46 | PC.NURSE ---
REPORT GIVEN FOR ADMISSION
[2020-09-17 18:24] VITALS: BP 152/71; PULSE 90; RESP 18; TEMP 36.6; O2SAT 92
[2020-09-17 19:29] VITALS: BP 155/72; PULSE 93; RESP 18; TEMP 37.5; O2SAT 92
[2020-09-17 19:45] LABS: Anion Gap 11 (12-20); Blood Urea Nitrogen 13 mg/dL (9-16); Calcium 8.8 mg/dL (8.4-10.2); Carbon Dioxide 26 mmol/L (22-29); Chloride 97 mmol/L (96-108); Creatinine Clr Calc Pharmacy 47.7; Estimated Glomerular Filt Rate > 60; Glucose Random 89 mg/dL (60-115); Potassium 4.2 mmol/L (3.3-5.1); Sodium 130 mmol/L (135-145)
[2020-09-17 20:30] LABS: Glucose, Whole Blood 94 mg/dL (60-115)
[2020-09-17] MEDS: 0.9 % Sodium Chloride Flush 3 ML SYRINGE IVFLUSH (20:31)
[2020-09-17] MEDS: Atorvastatin Calcium 80 MG TABLET PO (20:31)
[2020-09-17] MEDS: Thiamine HCL 200 MG/2 ML VIAL 100 MG IVPUSH ×2 (20:31→22:47)
[2020-09-17] MEDS: PHENobarbitaL sodium 130 MG/ML VIAL 209 MG IM (20:31)
[2020-09-17] MEDS: Bethanechol Chloride 25 MG TABLET 50 MG PO (22:47)
[2020-09-17] MEDS: PHENobarbitaL sodium 130 MG/ML VIAL 157 MG IM (22:47)
[2020-09-17 23:49] VITALS: BP 163/83; PULSE 90; RESP 18; TEMP 36.9; O2SAT 92
[2020-09-18] VITALS (8 sets, daily range): BP systolic 133–154; BP diastolic 65–90; PULSE 85–100; RESP 16–20; TEMP 36.4–36.8; O2SAT 89–96
[2020-09-18] MEDS: PHENobarbitaL sodium 130 MG/ML VIAL 157 MG IM (01:50)
[2020-09-18] MEDS: 0.9 % Sodium Chloride Flush 3 ML SYRINGE IVFLUSH ×4 (01:51→21:03)
[2020-09-18 02:28] LABS: Appearance Urine CLEAR; Color Urine YELLOW; Glucose Urine UA NEG (NEG); Leukocyte Esterase Urine NEG (NEG); Nitrite Urine NEG (NEG); PH 6.5 (5.0-8.0); Specific Gravity - Urine <= 1.005 (1.005-1.025); Urine Blood NEG (NEG); Urine Ketones NEG (NEG); Urine Protein NEG (NEG-TRACE)
[2020-09-18 02:54] LABS: Amphetamine Screen Urine Not Detected (Not Detect); Barbiturates, Urine POSITIVE (Not Detect); Benzodiazepines Screen Urine Not Detected (Not Detect); Cannabinoid Screen Urine Not Detected (Not Detect); Cocaine Screen Urine Not Detected (Not Detect); Opiate Screen Urine Not Detected (Not Detect); Phencyclidine Screen Urine Not Detected (Not Detect)
[2020-09-18 07:13] LABS: Hematocrit 27.7 % (42-52); Hemoglobin 9.4 g/dl (14.0-18.0); Mean Corpuscular HGB Conc 33.9 g/dl (31.0-36.0); Mean Corpuscular Hemoglobin 27.9 pg (27.0-33.0); Mean Corpuscular Volume 82.2 fL (80-98); Mean Platelet Volume 8.9 fL (9.4-12.4); Platelet Count 355 X10*3/uL (160-400); Red Blood Count 3.37 X10*6/uL (4.60-5.80); Red Cell Distribution Width 14.5 % (11.0-16.0); White Blood Count 9.4 X10*3/uL (4.8-10.8)
[2020-09-18 07:33] LABS: Glucose, Whole Blood 92 mg/dL (60-115)
[2020-09-18 07:37] LABS: Anion Gap 10 (12-20); Blood Urea Nitrogen 12 mg/dL (9-16); Calcium 8.3 mg/dL (8.4-10.2); Carbon Dioxide 26 mmol/L (22-29); Chloride 102 mmol/L (96-108); Creatinine Clr Calc Pharmacy 48.6; Estimated Glomerular Filt Rate > 60; Glucose Random 95 mg/dL (60-115); Potassium 4.1 mmol/L (3.3-5.1); Sodium 134 mmol/L (135-145)
[2020-09-18] MEDS: Bethanechol Chloride 25 MG TABLET 50 MG PO ×2 (07:50→21:02)
[2020-09-18] MEDS: Clopidogrel Bisulfate 75 MG TABLET PO (07:50)
[2020-09-18] MEDS: Thiamine HCL 200 MG/2 ML VIAL 100 MG IVPUSH ×3 (07:51→21:02)
[2020-09-18] MEDS: amLODIPine Besylate 10 MG TABLET PO (07:51)
[2020-09-18] MEDS: Rivaroxaban 10 MG TABLET PO (07:51)
[2020-09-18] MEDS: Doxazosin Mesylate 2 MG TABLET 8 MG PO (07:51)
[2020-09-18] MEDS: Multivitamin TABLET 1 TAB PO (07:51)
[2020-09-18] MEDS: PHENobarbitaL 15 MG TABLET 45 MG PO ×2 (07:51→21:02)
[2020-09-18] MEDS: Dextrose 5 % 1,000 ML 100 ML IVCONT (08:14)
--- NOTE | 2020-09-18 09:28 | PM.CNNEP ---
History of Present Illness Reason for Consult Consult date: 09/18/20 Requesting physician: Jorge Zhang Chief Complaint Chief complaint: AMS Hypona History of Present Illness Narrative: Mr. Ashby is a 70 yo man whom we are asked to see for hyponatremia. He presented with sudden difficulty with speech, aphasia. He has a hx of recent ICH. He has DM II and HTN, PAD and BPH. His initial soidum was 123 with a glucose of 310. His sodium has improved to 134. He denies any nausea headache or shortness of breath. Because of concern for rapid correction, D5W was started. His glucoses remain elevated. The patient was seen by Dr. Fish in July for prerenal AI which recovered at that time. His creat is 1 mg/dl and UA shows pyuria. He has a hx of BPH. Review of Systems Review of Systems No recent cold or flu-like illness he wants to go home denies dyspnea he denies dysuria he has anorexia his speech has improved PMFSH Past Medical History Medical History BPH (benign prostatic hyperplasia) Carotid artery narrowing Central pontine myelinolysis Cerebral atrophy Cerebral microvascular disease Chronic hyponatremia COPD (chronic obstructive pulmonary disease) Diabetes ETOH abuse Hyperlipidemia Multiple cerebral infarctions Peripheral arterial disease Presence of arterial stent Sensory aphasia determined by examination Toxic myopathy Family History Family History Father Parkinsons disease Mother Diabetes Family history: reviewed and not pertinent Social History Social History Household Members: Spouse Housing: House Do you presently have visiting nurse or other home services: No Alcohol intake: never Patient Tobacco Use Status: Current everyday Tobacco user Tobacco use type: Cigarette Cigarette Packs Per Day: 1 Years Smoked: 35 Use of substances other than those prescribed or required for medical reasons: No Currently Displaying Signs/Symptoms of Drug Intoxication Withdrawal: No Advance Directives: Yes Advance Directives on File: Yes Advance Directives Date on File: 07/24/20 Do you have thoughts of harming others: None Do you have a plan to hurt others: No Plan Recently lost weight without trying: Yes How much weight loss: 2-13 pounds Eating poorly because of decreased appetite: Yes Nutrition screen score: 4 service: Yes Meds Allergies Allergy/AdvReac Type Severity Reaction Status Date / Time clams Allergy Severe SWELLING Verified 09/07/20 09:36 Active Medications: Current Medications Generic Name Dose Route Start Last Admin Trade Name Eulogio PRN Reason Stop Dose Admin Amlodipine Besylate 10 mg 09/18/20 09:00 09/18/20 07:51 Amlodipine Besylate 10 Mg Tablet PO 10 mg DAILY DARVIN Administration Protocol Atorvastatin Calcium 80 mg 09/17/20 21:00 09/17/20 20:31 Atorvastatin Calcium 80 Mg Tablet PO 80 mg BEDTIME DARVIN Administration Bethanechol Chloride 50 mg 09/17/20 21:00 09/18/20 07:50 Bethanechol Chloride 25 Mg Tablet PO 50 mg BID DARVIN Administration Clopidogrel Bisulfate 75 mg 09/18/20 09:00 09/18/20 07:50 Clopidogrel Bisulfate 75 Mg Tablet PO 75 mg DAILY DARVIN Administration Doxazosin Mesylate 8 mg 09/18/20 09:00 09/18/20 07:51 Doxazosin Mesylate 2 Mg Tablet PO 8 mg DAILY DARVIN Administration Dextrose 1,000 mls @ 100 mls/hr 09/18/20 08:00 09/18/20 08:14 D5w IVCONT 100 mls/hr .Q10H DARVIN Administration Insulin Human Lispro 0 unit 09/17/20 16:30 09/18/20 07:58 Insulin Lispro 100 Unit/Ml 3 Ml Vial SUBCUT Not Given QIDACHS [facility] Protocol Medication 1 each 09/18/20 09:00 No Benzodiazepines MISCELLANE DAILY [facility] Multivitamins/Vitamin C 1 tab 09/18/20 09:00 09/18/20 07:51 Multivitamin Tablet PO 1 tab DAILY DARVIN Administration Phenobarbital 45 mg 09/18/20 09:00 09/18/20 07:51 Phenobarbital 15 Mg Tablet PO 09/19/20 21:01 45 mg BID DARVIN Administration Phenobarbital 15 mg 09/20/20 09:00 Phenobarbital 15 Mg Tablet PO 09/21/20 21:01 BID DARVIN Phenobarbital 15 mg 09/22/20 09:00 Phenobarbital 15 Mg Tablet PO 09/23/20 09:01 DAILY DARVIN Rivaroxaban 10 mg 09/18/20 09:00 09/18/20 07:51 Rivaroxaban 10 Mg Tablet PO 10 mg DAILY DARVIN Administration Sodium Chloride 3 ml 09/17/20 19:00 09/18/20 07:52 0.9 % Sodium Chloride Flush 3 Ml Syringe IVFLUSH 3 ml QSHIFT [facility] Administration Tamsulosin HCl 0.4 mg 09/18/20 16:30 Tamsulosin Hcl 0.4 Mg Capsule PO DAILY@1630 [facility] Thiamine HCl 100 mg 09/17/20 19:00 09/18/20 07:51 Thiamine Hcl 200 Mg/2 Ml Vial IVPUSH 100 mg TID [facility] Administration Home Medications Medication Instructions Recorded Confirmed Last Taken Type tamsulosin 0.4 mg capsule 0.4 mg PO DAILY 08/23/20 09/17/20 Unknown History terazosin 10 mg PO DAILY 09/17/20 09/17/20 Unknown History Physical Exam Vital Signs: Last Vital Signs Temp 97.6 F 09/18/20 07:30 Pulse 90 09/18/20 07:51 Resp 18 09/18/20 07:30 BP 150/77 H 09/18/20 07:51 Pulse Ox 92 09/18/20 08:00 Body Mass Index 25.4 Const Other: The patient is awake, alert, the patient follows simple commands, he does try to answer questions and I am able to understand him today-has some dysarthria He does not appear to be in distress. General: cooperative; No in distress Limitations: no limitations [facility] Head: Yes normal to inspection, Yes normocephalic and Yes atraumatic Ears: external ears normal General nose exam: Normal external nose present Face and sinus: Yes normal facial exam Mouth: Normal oral and palatal mucosa present Throat: Yes posterior oropharynx normal Eyes Periorbital: periorbital findings normal Eyelids: Yes eyelids normal Conjunctivae: conjunctivae normal Sclerae: sclerae normal Corneas: corneas normal Pupils: Equal, round and reactive pupils present Direct Ophthalmoscopy: normal light reflex Neck Neck: Yes full ROM, Yes no lymphadenopathy, Yes no meningeal signs, Yes trachea midline and Yes supple Chest Chest palpation & inspection: normal inspection of the chest and normal palpation of entire chest wall Resp Effort & Inspection: normal respiratory effort and able to speak in complete sentences Auscultation: clear to auscultation bilaterally Cardio Rate: regular rate Rhythm: regular rhythm Heart sounds: S1 normal heart sound present, S2 normal heart sound present and no murmurs GI Inspection: Yes normal to inspection Palpation (GI): Soft to palpation, nontender, no guarding, not rigid and No hepatosplenomegaly present General: Yes no CVA tenderness Back/Spine/Pelvis Back: no CVA tenderness Cervical Spine: normal cervical lordosis Thoracic/Lumbar Spine: thoracic and lumbar spine normal to inspection Skin Lesions: no lesions Rashes: no rashes Wounds: no wounds Neuro General: no meningeal signs Cranial nerves: Yes CN's II-XII intact bilaterally and Yes Equal, round and reactive pupils present Cognition (Neuro): normal cognition Motor exam (neuro): 5/5 motor strength present throughout Extrem General: Yes normal to inspection and Yes full ROM Psych Appearance: well kempt Mental Status: mental status grossly normal Speech and movement: Normal speech and movement present Affect: normal affect Attitude: cooperative Thought process: Normal thought process present Thought content: Normal thought content present Results Lab Results Result Diagrams: 09/18/20 05:48 09/18/20 05:48 Lab results: Chemistry 09/17/20 09/17/20 09/18/20 10:55 19:12 05:48 Sodium 123 L 130 L 134 L Potassium 5.4 H D 4.2 D 4.1 Carbon Dioxide 22 26 26 BUN 13 13 12 Creatinine 1.21 1.08 1.06 Calcium 8.3 L 8.8 D 8.3 L Hematology 09/17/20 09/18/20 10:55 05:48 WBC 8.4 9.4 Hgb 10.5 L 9.4 L Plt Count 381 D 355 Urinalysis 09/18/20 02:14 Urine Color YELLOW Urine Appearance CLEAR Urine pH 6.5 Ur Specific [place] <= 1.005 Urine Protein NEG Urine Glucose (UA) NEG Urine Ketones NEG Urine Blood NEG Urine Nitrite NEG Ur Leukocyte Esterase NEG Assessment and Plan (1) Expressive aphasia: Status: Acute At this time there was no significant language difficulty. (2) Acute hyponatremia: Status: Acute (3) Hypotonic neurogenic bladder: Status: Acute (4) Peripheral artery disease: Status: Acute (5) Hyperkalemia: Status: Acute (6) Diabetes: Status: Acute The patient presented with low sodium which corrected to 127 or so for hyperglycemia. He has improve and now is 134-7 meq/12 hrs-I do not feel he needs further D5W at this point. His rate of correction is fine and would avoid furthe glucose because it will raise his blood surgar. He was hypovolemic on admission as the cause of hyponatremia and would change now to 1/2 normal saline. Potassium is better now that his glucoses are and he has received insulin Recommend: Rate of correction of sodium is ok stop IVF D5, consider 1/2 ns for another liter Close to being able to be discharged Possible UTI-check culture Procedures Date of Service Date of Service: 09/18/20
--- NOTE | 2020-09-18 10:54 | P.PNIM_ITS ---
Subjective Subjective Date of Service: 09/18/20 Interval History: no complaints wants to go home Cardiovascular Cardiovascular: Reports no additional cardiovascular complaints Gastrointestinal Gastrointestinal: Reports no additional gastrointestinal complaints Physical Exam Vital Signs: Vital Signs: Last Vital Signs Temp 97.6 F 09/18/20 07:30 Pulse 90 09/18/20 07:51 Resp 18 09/18/20 07:30 BP 150/77 H 09/18/20 07:51 Pulse Ox 92 09/18/20 08:00 Body Mass Index 25.4 General: lethargic, oriented times 3, poor memory and recall, minimally conversational, no acute distress Resp: Crackles CVS: S1,S2,RRR GI: soft, non tender, non distended Neuro: motor grossly intact Psych: impaired insight Objective Data Current Medications Generic Name Dose Route Start Last Admin Trade Name Clarenceq PRN Reason Stop Dose Admin Amlodipine Besylate 10 mg 09/18/20 09:00 09/18/20 07:51 Amlodipine Besylate 10 Mg Tablet PO 10 mg DAILY DARVIN Administration Protocol Atorvastatin Calcium 80 mg 09/17/20 21:00 09/17/20 20:31 Atorvastatin Calcium 80 Mg Tablet PO 80 mg BEDTIME DARVIN Administration Bethanechol Chloride 50 mg 09/17/20 21:00 09/18/20 07:50 Bethanechol Chloride 25 Mg Tablet PO 50 mg BID DARVIN Administration Clopidogrel Bisulfate 75 mg 09/18/20 09:00 09/18/20 07:50 Clopidogrel Bisulfate 75 Mg Tablet PO 75 mg DAILY DARVIN Administration Doxazosin Mesylate 8 mg 09/18/20 09:00 09/18/20 07:51 Doxazosin Mesylate 2 Mg Tablet PO 8 mg DAILY DARVIN Administration Dextrose 1,000 mls @ 100 mls/hr 09/18/20 08:00 09/18/20 08:14 D5w IVCONT 100 mls/hr .Q10H DARVIN Administration Insulin Human Lispro 0 unit 09/17/20 16:30 09/18/20 07:58 Insulin Lispro 100 Unit/Ml 3 Ml Vial SUBCUT Not Given QIDACHS [facility] Protocol Medication 1 each 09/18/20 09:00 No Benzodiazepines MISCELLANE DAILY [facility] Multivitamins/Vitamin C 1 tab 09/18/20 09:00 09/18/20 07:51 Multivitamin Tablet PO 1 tab DAILY DARVIN Administration Phenobarbital 45 mg 09/18/20 09:00 06/13/21 07:51 Phenobarbital 15 Mg Tablet PO 09/19/20 21:01 45 mg BID DARVIN Administration Phenobarbital 15 mg 09/20/20 09:00 Phenobarbital 15 Mg Tablet PO 09/21/20 21:01 BID DARVIN Phenobarbital 15 mg 09/22/20 09:00 Phenobarbital 15 Mg Tablet PO 09/23/20 09:01 DAILY DARVIN Rivaroxaban 10 mg 09/18/20 09:00 09/18/20 07:51 Rivaroxaban 10 Mg Tablet PO 10 mg DAILY DARVIN Administration Sodium Chloride 3 ml 09/17/20 19:00 09/18/20 07:52 0.9 % Sodium Chloride Flush 3 Ml Syringe IVFLUSH 3 ml QSHIFT DARVIN Administration Tamsulosin HCl 0.4 mg 09/18/20 16:30 Tamsulosin Hcl 0.4 Mg Capsule PO DAILY@1630 DARVIN Thiamine HCl 100 mg 09/17/20 19:00 09/18/20 07:51 Thiamine Hcl 200 Mg/2 Ml Vial IVPUSH 100 mg TID DARVIN Administration Labs CBC & Chem 7: 09/18/20 05:48 09/18/20 05:48 Assessment and Plan (1) Expressive aphasia: Status: Acute Assessment and Plan: 70M presented with expressive aphasia, found to have hyponatremia, now with hypoxia expressive aphasia differential includes CVA/TIA, wernickes, etoh withdrawl continue plavix statin mri when available thiamine, mvi phenobarb protocol hyponatremia likely beer potomania nephro appreciated corrected sodium closer to 127, so less overcorrection than appears will change d5w to 1/2ns for 1 L acute hypoxic respiratory failure ddx include aspiration vs chf vs poor inspiratory effort/atelectasis in copd check cxr HTN amlodipine BPH flomax vte prophylaxis - xarelto
[2020-09-18] MEDS: Sodium Chloride 0.45 % 1,000 ML 80 ML IVCONT (11:32)
[2020-09-18 11:41] LABS: Glucose, Whole Blood 226 mg/dL (60-115)
[2020-09-18] MEDS: Insulin Lispro 100 UNIT/ML 3 ML VIAL SUBCUT ×2 (12:26→16:41)
[2020-09-18 12:56] LABS: Anion Gap 12 (12-20); Blood Urea Nitrogen 12 mg/dL (9-16); Calcium 8.3 mg/dL (8.4-10.2); Carbon Dioxide 25 mmol/L (22-29); Chloride 101 mmol/L (96-108); Estimated Glomerular Filt Rate > 60; Glucose Random 175 mg/dL (60-115); Potassium 4.1 mmol/L (3.3-5.1); Sodium 134 mmol/L (135-145)
[2020-09-18] MEDS: Tamsulosin HCL 0.4 MG CAPSULE PO (16:27)
[2020-09-18 20:43] LABS: Glucose, Whole Blood 99 mg/dL (60-115)
[2020-09-18] MEDS: Atorvastatin Calcium 80 MG TABLET PO (21:02)
[2020-09-19] VITALS (9 sets, daily range): BP systolic 116–178; BP diastolic 62–83; PULSE 89–106; RESP 16–22; TEMP 36.3–37; O2SAT 93–97
[2020-09-19 04:28] LABS: Folate > 20.0 ng/mL (> or = 4.0); Vitamin B12 511 pg/mL (200-900)
[2020-09-19 07:06] LABS: Glucose, Whole Blood 104 mg/dL (60-115)
[2020-09-19 08:04] LABS: Glucose, Whole Blood 162 mg/dL (60-115)
[2020-09-19] MEDS: 0.9 % Sodium Chloride Flush 3 ML SYRINGE IVFLUSH ×3 (08:36→21:54)
[2020-09-19] MEDS: Multivitamin TABLET 1 TAB PO (08:36)
[2020-09-19] MEDS: Clopidogrel Bisulfate 75 MG TABLET PO (08:36)
[2020-09-19] MEDS: amLODIPine Besylate 10 MG TABLET PO (08:36)
[2020-09-19] MEDS: Rivaroxaban 10 MG TABLET PO (08:37)
[2020-09-19] MEDS: Doxazosin Mesylate 2 MG TABLET 8 MG PO (08:37)
[2020-09-19] MEDS: Bethanechol Chloride 25 MG TABLET 50 MG PO ×2 (08:38→21:53)
[2020-09-19] MEDS: PHENobarbitaL 15 MG TABLET 45 MG PO ×2 (08:39→21:53)
[2020-09-19] MEDS: Thiamine HCL 100 MG TABLET PO (11:13)
[2020-09-19] MEDS: Nicotine 21 MG PATCH.TD24 TRANSDERMA (11:13)
[2020-09-19] MEDS: Insulin Lispro 100 UNIT/ML 3 ML VIAL SUBCUT ×3 (11:15→21:54)
[2020-09-19 11:18] LABS: Glucose, Whole Blood 251 mg/dL (60-115)
--- NOTE | 2020-09-19 11:27 | PM.PNNEP ---
Subjective Subjective Date of Service: 09/19/20 Interval history: Events noted Physical Exam Vital Signs: Vital Signs: Last Vital Signs Temp 97.8 F 09/19/20 11:12 Pulse 98 09/19/20 11:12 Resp 20 09/19/20 11:12 BP 168/78 H 09/19/20 11:12 Pulse Ox 94 09/19/20 11:12 Body Mass Index 25.4 Objective Data Labs CBC & Chem 7: 09/20/20 06:06 09/20/20 06:06 Labs: Laboratory Results - last 24 hr 09/17/20 09/18/20 09/18/20 19:12 11:25 12:05 Sodium 134 L Potassium 4.1 Chloride 101 Carbon Dioxide 25 Anion Gap 12 BUN 12 Creatinine 1.12 Estim Creat Clear Calc 46.0 Estimated GFR > 60 POC Glucose 226 H Random Glucose 175 H D Calcium 8.3 L Vitamin B12 511 Folate > 20.0 09/18/20 09/18/20 09/19/20 16:36 20:39 07:02 Sodium Potassium Chloride Carbon Dioxide Anion Gap BUN Creatinine Estim Creat Clear Calc Estimated GFR POC Glucose 162 H 99 104 Random Glucose Calcium Vitamin B12 Folate 09/19/20 11:10 Sodium Potassium Chloride Carbon Dioxide Anion Gap BUN Creatinine Estim Creat Clear Calc Estimated GFR POC Glucose 251 H Random Glucose Calcium Vitamin B12 Folate Microbiology Microbiology Results: Microbiology 09/17/20 12:11 Blood - Venous Blood Culture - Preliminary No growth after 24 hours. 09/17/20 12:06 Blood - Venous Blood Culture - Preliminary No growth after 24 hours. Assessment & Plan Assessment and plan (1) Acute hyponatremia: Status: Acute Assessment and Plan: Mild Chronic hyponatremia pNa is up to 134 and asymptomatic Keep on oral free water restriction of 1.2L per 24 hrs Time Spent With Patient Time: Total time spent is greater than 50% in coordination of care (as documented) at patient's floor/unit and/or counseling patient: Procedures Date of Service Date of Service: 09/19/20
--- NOTE | 2020-09-19 13:00 | HO.PM.IMPN ---
Subjective Subjective Date of Service: 09/19/20 Interval History: more alert today, but waxes and wanes, wants to go home Cardiovascular Cardiovascular: Reports no additional cardiovascular complaints Gastrointestinal Gastrointestinal: Reports no additional gastrointestinal complaints Physical Exam Vital Signs: Vital Signs: Last Vital Signs Temp 97.8 F 09/19/20 11:12 Pulse 98 09/19/20 11:12 Resp 20 09/19/20 11:12 BP 168/78 H 09/19/20 11:12 Pulse Ox 94 09/19/20 11:12 Body Mass Index 25.4 General: lethargic, oriented times 3, poor memory and recall, minimally conversational, no acute distress Resp: Crackles CVS: S1,S2,RRR GI: soft, non tender, non distended Neuro: motor grossly intact Psych: impaired insight Objective Data Current Medications Generic Name Dose Route Start Last Admin Trade Name Freq PRN Reason Stop Dose Admin Amlodipine Besylate 10 mg 09/18/20 09:00 09/19/20 08:36 Amlodipine Besylate 10 Mg Tablet PO 10 mg DAILY [facility] Administration Protocol Atorvastatin Calcium 80 mg 09/17/20 21:00 09/18/20 21:02 Atorvastatin Calcium 80 Mg Tablet PO 80 mg BEDTIME DARVIN Administration Bethanechol Chloride 50 mg 09/17/20 21:00 09/19/20 08:38 Bethanechol Chloride 25 Mg Tablet PO 50 mg BID DARVIN Administration Cefuroxime Axetil 500 mg 09/18/20 21:00 09/19/20 08:36 Cefuroxime Axetil 500 Mg Tablet PO 500 mg BID DARVIN Administration Clopidogrel Bisulfate 75 mg 09/18/20 09:00 09/19/20 08:36 Clopidogrel Bisulfate 75 Mg Tablet PO 75 mg DAILY DARVIN Administration Doxazosin Mesylate 8 mg 09/18/20 09:00 09/19/20 08:37 Doxazosin Mesylate 2 Mg Tablet PO 8 mg DAILY [facility] Administration Insulin Human Lispro 0 unit 09/17/20 16:30 09/19/20 11:15 Insulin Lispro 100 Unit/Ml 3 Ml Vial SUBCUT 6 unit QIDACHS [facility] Administration Protocol Medication 1 each 09/18/20 09:00 No Benzodiazepines MISCELLANE DAILY [facility] Multivitamins/Vitamin C 1 tab 09/18/20 09:00 09/19/20 08:36 Multivitamin Tablet PO 1 tab DAILY [facility] Administration Nicotine 21 mg 09/19/20 11:00 09/19/20 11:13 Nicotine 21 Mg Patch.Td24 TRANSDERMA 21 mg DAILY DARVIN Administration Phenobarbital 45 mg 09/18/20 09:00 09/19/20 08:39 Phenobarbital 15 Mg Tablet PO 09/19/20 21:01 45 mg BID DARVIN Administration Phenobarbital 15 mg 09/20/20 09:00 Phenobarbital 15 Mg Tablet PO 09/21/20 21:01 BID [facility] Phenobarbital 15 mg 09/22/20 09:00 Phenobarbital 15 Mg Tablet PO 09/23/20 09:01 DAILY DARVIN Rivaroxaban 10 mg 09/18/20 09:00 09/19/20 08:37 Rivaroxaban 10 Mg Tablet PO 10 mg DAILY DARVIN Administration Sodium Chloride 3 ml 09/17/20 19:00 09/19/20 08:36 0.9 % Sodium Chloride Flush 3 Ml Syringe IVFLUSH 3 ml QSHIFT DARVIN Administration Tamsulosin HCl 0.4 mg 09/18/20 16:30 09/18/20 16:27 Tamsulosin Hcl 0.4 Mg Capsule PO 0.4 mg DAILY@1630 DARVIN Administration Thiamine HCl 100 mg 09/19/20 11:00 09/19/20 11:13 Thiamine Hcl 100 Mg Tablet PO 100 mg DAILY DARVIN Administration Labs CBC & Chem 7: 09/18/20 05:48 09/18/20 12:05 Labs: Laboratory Results - last 24 hr 09/17/20 09/18/20 09/18/20 19:12 16:36 20:39 POC Glucose 162 H 99 Vitamin B12 511 Folate > 20.0 09/19/20 09/19/20 07:02 11:10 POC Glucose 104 251 H Vitamin B12 Folate Microbiology Microbiology Results: Microbiology 09/17/20 12:11 Blood Culture - Preliminary Blood - Venous No growth after 24 hours. 09/17/20 12:06 Blood Culture - Preliminary Blood - Venous No growth after 24 hours. Assessment and Plan (1) Expressive aphasia: Status: Acute Assessment and Plan: 70M presented with expressive aphasia, found to have hyponatremia, then developed hypoxia expressive aphasia differential includes CVA/TIA, wernickes, etoh withdrawl continue plavix statin mri when available thiamine, mvi phenobarb protocol hyponatremia resolved acute hypoxic respiratory failure RLL opacity ddx include aspiration pneumonia/pneumonitis vs poor inspiratory effort/atelectasis will start ceftin, wean o2 as tolerated, incentive spirometer HTN amlodipine BPH flomax vte prophylaxis - xarelto
--- NOTE | 2020-09-19 13:17 | MHC.CM.PN ---
met with pt who explins m,that he celine es with his he hopes to be dcd today pt states he had no sevceis prior to [facility] no servceis his son will transport
--- NOTE | 2020-09-19 13:57 | MHC.CM.PN ---
Male 70 DX AMS LOW Na+ DP Home no services with family providing transportation. Oxygen is in the weaning process.
[2020-09-19 16:22] LABS: Glucose, Whole Blood 212 mg/dL (60-115)
[2020-09-19] MEDS: Tamsulosin HCL 0.4 MG CAPSULE PO (16:45)
[2020-09-19 20:18] LABS: Glucose, Whole Blood 220 mg/dL (60-115)
[2020-09-19] MEDS: Atorvastatin Calcium 80 MG TABLET PO (21:53)
[2020-09-20 03:20] VITALS: BP 127/63; PULSE 98; RESP 20; TEMP 36.2; O2SAT 92
[2020-09-20 06:50] LABS: Anion Gap 12 (12-20); Blood Urea Nitrogen 13 mg/dL (9-16); Calcium 8.3 mg/dL (8.4-10.2); Carbon Dioxide 28 mmol/L (22-29); Chloride 100 mmol/L (96-108); Estimated Glomerular Filt Rate > 60; Glucose Fasting 96 mg/dL (60-99); Potassium 4.2 mmol/L (3.3-5.1); Sodium 136 mmol/L (135-145)
[2020-09-20 06:51] VITALS: BP 158/72; PULSE 110; RESP 20; TEMP 36.1; O2SAT 93
[2020-09-20 06:55] LABS: Hematocrit 29.6 % (42-52); Mean Corpuscular HGB Conc 33.8 g/dl (31.0-36.0); Mean Corpuscular Hemoglobin 27.7 pg (27.0-33.0); Mean Platelet Volume 8.7 fL (9.4-12.4); Platelet Count 397 X10*3/uL (160-400); Red Blood Count 3.61 X10*6/uL (4.60-5.80); Red Cell Distribution Width 14.6 % (11.0-16.0); White Blood Count 9.9 X10*3/uL (4.8-10.8)
[2020-09-20 07:14] LABS: Glucose, Whole Blood 106 mg/dL (60-115)
[2020-09-20 08:48] VITALS: BP 158/72; PULSE 110
[2020-09-20] MEDS: Clopidogrel Bisulfate 75 MG TABLET PO (08:48)
[2020-09-20] MEDS: PHENobarbitaL 15 MG TABLET PO (08:48)
[2020-09-20] MEDS: amLODIPine Besylate 10 MG TABLET PO (08:48)
[2020-09-20] MEDS: Thiamine HCL 100 MG TABLET PO (08:48)
[2020-09-20] MEDS: Rivaroxaban 10 MG TABLET PO (08:48)
[2020-09-20 08:49] VITALS: BP 158/72; PULSE 110
[2020-09-20] MEDS: Bethanechol Chloride 25 MG TABLET 50 MG PO (08:49)
[2020-09-20] MEDS: Multivitamin TABLET 1 TAB PO (08:49)
[2020-09-20] MEDS: 0.9 % Sodium Chloride Flush 3 ML SYRINGE IVFLUSH (08:49)
[2020-09-20] MEDS: Doxazosin Mesylate 2 MG TABLET 8 MG PO (08:49)
[2020-09-20] MEDS: Nicotine 21 MG PATCH.TD24 TRANSDERMA (10:20)
[2020-09-20 11:04] VITALS: BP 122/64; PULSE 105; RESP 20; TEMP 36.6; O2SAT 96
--- NOTE | 2020-09-20 11:07 | P.PNNP_ITS ---
Subjective Subjective Date of Service: 09/20/20 Interval history: Events noted Physical Exam Vital Signs: Vital Signs: Last Vital Signs Temp 98 F 09/20/20 11:04 Pulse 105 H 09/20/20 11:04 Resp 20 09/20/20 11:04 BP 122/64 09/20/20 11:04 Pulse Ox 96 09/20/20 11:04 Body Mass Index 25.4 Objective Data Labs CBC & Chem 7: 09/20/20 06:06 09/20/20 06:06 Labs: Laboratory Results - last 24 hr 09/19/20 09/19/20 09/19/20 11:10 16:10 20:11 WBC RBC Hgb Hct MCV MCH MCHC RDW Plt Count MPV Absolute Nucleated RBC Nucleated RBC % (auto) Sodium Potassium Chloride Carbon Dioxide Anion Gap BUN Creatinine Estim Creat Clear Calc Estimated GFR POC Glucose 251 H 212 H 220 H Fasting Glucose Calcium 09/20/20 09/20/20 09/20/20 06:06 06:06 06:51 WBC 9.9 RBC 3.61 L Hgb 10.0 L Hct 29.6 L MCV 82.0 MCH 27.7 MCHC 33.8 RDW 14.6 Plt Count 397 MPV 8.7 L Absolute Nucleated RBC 0.000 Nucleated RBC % (auto) 0.0 Sodium 136 Potassium 4.2 Chloride 100 Carbon Dioxide 28 Anion Gap 12 BUN 13 Creatinine 1.03 Estim Creat Clear Calc 50.0 Estimated GFR > 60 POC Glucose 106 Fasting Glucose 96 Calcium 8.3 L Microbiology Microbiology Results: Microbiology 09/17/20 12:11 Blood - Venous Blood Culture - Preliminary No growth after 48 hours. 09/17/20 12:06 Blood - Venous Blood Culture - Preliminary No growth after 48 hours. Assessment & Plan Assessment and plan (1) Acute hyponatremia: Status: Acute Assessment and Plan: Mild Chronic hyponatremia pNa is up and asymptomatic Keep on oral free water restriction of 1.2L per 24 hrs Time Spent With Patient Time: Total time spent is greater than 50% in coordination of care (as doc umented) at patient's floor/unit and/or counseling patient: Procedures Date of Service Date of Service: 09/20/20
[2020-09-20 11:09] LABS: Glucose, Whole Blood 383 mg/dL (60-115)
--- NOTE | 2020-09-20 13:15 | PM.DS ---
DS: Providers Provider Date of Service: 09/20/20 Date of admission: 09/17/20 13:52 Primary care physician: AARON Fonseca Consults: 09/17/20 10:28 Consult to Neurology Stat Consulting Provider: [facility] Reason for consultation: Sudden onset of dysarthric speech, rule out stroke Has provider been notified: No 09/17/20 19:00 Consult to Nephrology Routine Consulting Provider: Rudy Higgins Reason for consultation: hyponatremia DS: Diagnosis Discharge Diagnosis (1) Acute hyponatremia: Status: Acute (2) Expressive aphasia: Status: Acute (3) Alcohol withdrawal: Status: Acute (4) Acute respiratory failure with hypoxia: Status: Acute (5) Pneumonia: Status: Acute DS: Medications Discharge Medications Home Medications: Home Medications Medication Instructions Recorded Confirmed tamsulosin 0.4 mg capsule 0.4 mg PO DAILY 08/23/20 09/17/20 terazosin 10 mg PO DAILY 09/17/20 09/17/20 Previous Rx's Medication Instructions Recorded atorvastatin 80 mg tablet 80 mg PO BEDTIME 90 Days #90 tab 04/04/20 amlodipine 10 mg tablet 10 mg PO DAILY 90 Days #90 tab 05/09/20 clopidogrel 75 mg tablet 75 mg PO DAILY #90 tab 07/11/20 bethanechol chloride 50 mg tablet 50 mg PO BID 90 Days #180 tab 08/05/20 furosemide 20 mg tablet 20 mg PO QAM 20 Days #20 tab 08/23/20 cefuroxime axetil 500 mg PO BID #10 tab 09/20/20 thiamine mononitrate (vit B1) 100 mg PO DAILY #30 tab 09/20/20 DS: Summary Hospital Course Hospital Course: patient was admitted for episode of confusion with expressive aphasia complicated by hyponatremia. Differential included CVA, Wernicke encephalopathy, alcohol withdrawl. patient was given phenobarb, thiamine. 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 his hyponatremia, was partially pseudo due to hyperglceymia, was likely beer potomania and resolved. course was complicated by acute hypoxic respiratory failure due to likely aspiration pneuomonia, he was given ceftin and will complete 5 more days. patient is now back to baseline and will be discharged home. Time Spent with Patient Time attestation: Total time spent providing and/or coordinating discharge services: Discharge coordination time: Greater than 30 minutes Quality: Stroke Does the patient have a stroke diagnosis?: No Physical Exam Vital Signs: Vital Signs: Last Vital Signs Temp 98 F 09/20/20 11:04 Pulse 105 H 09/20/20 11:04 Resp 20 09/20/20 11:04 BP 122/64 09/20/20 11:04 Pulse Ox 96 09/20/20 11:04 Body Mass Index 25.4 General: AO X 3, no acute distress Resp: CTA bilateral CVS: S1,S2,RRR GI: soft, non tender, non distended Neuro: motor grossly intact Psych: appropriate affect DS: Data Data Completed and Pending Completed studies during hospitalization [Text1]: Procedures Detoxification Services for Substance Abuse Treatment (07/24/20) Labs on day of discharge: Laboratory Results - last 24 hr 09/19/20 09/19/20 09/20/20 16:10 20:11 06:06 WBC 9.9 RBC 3.61 L Hgb 10.0 L Hct 29.6 L MCV 82.0 MCH 27.7 MCHC 33.8 RDW 14.6 Plt Count 397 MPV 8.7 L Absolute Nucleated RBC 0.000 Nucleated RBC % (auto) 0.0 Sodium Potassium Chloride Carbon Dioxide Anion Gap BUN Creatinine Estim Creat Clear Calc Estimated GFR POC Glucose 212 H 220 H Fasting Glucose Calcium 09/20/20 09/20/20 09/20/20 06:06 06:51 11:04 WBC RBC Hgb Hct MCV MCH MCHC RDW Plt Count MPV Absolute Nucleated RBC Nucleated RBC % (auto) Sodium 136 Potassium 4.2 Chloride 100 Carbon Dioxide 28 Anion Gap 12 BUN 13 Creatinine 1.03 Estim Creat Clear Calc 50.0 Estimated GFR > 60 POC Glucose 106 383 H* Fasting Glucose 96 Calcium 8.3 L Preliminary micro results at discharge 09/17/20 12:11 Blood Culture - Preliminary Blood - Venous No growth after 48 hours. 09/17/20 12:06 Blood Culture - Preliminary Blood - Venous No growth after 48 hours. Discharge Plan Discharge Patient Disposition: Home, Self-Care Discharge Diagnosis: expressive aphasia Referrals: Joe Farris, [employer] [Primary Care Provider] - 1 Week Discharge Medications: New cefuroxime axetil 500 mg Tablet 500 mg PO BID Qty: 10 RF: 0 thiamine mononitrate (vit B1) 100 mg Tablet 100 mg PO DAILY Qty: 30 RF: 0 Continued atorvastatin 80 mg tablet 80 mg PO BEDTIME 90 Days Qty: 90 RF: 4 amlodipine 10 mg tablet 10 mg PO DAILY 90 Days Qty: 90 RF: 1 clopidogrel 75 mg tablet 75 mg PO DAILY Qty: 90 RF: 0 bethanechol chloride 50 mg tablet 50 mg PO BID 90 Days Qty: 180 RF: 0 furosemide 20 mg tablet 20 mg PO QAM 20 Days Qty: 20 RF: 0 terazosin 10 mg Tablet 10 mg PO DAILY RF: 0 tamsulosin 0.4 mg capsule 0.4 mg PO DAILY RF: 0 Discharge Orders: Discharge Order (Routine); Ordered 09/20/20 Ordered By: Jorge Zhang Diet: advance to usual diet Activity on Discharge: As tolerated Stand Alone Forms: Patient Portal Discharge page Care Plan Goals: recovery Health Concerns: pneumonia, alcohol Plan of Treatment: ceftin for 5 more days, avoid alcohol, take vitamin supplements Assessment: see above
[2020-09-20 14:28] LABS: Glucose, Whole Blood 271 mg/dL (60-115)
--- NOTE | 2020-09-20 15:48 | MHC.CM.PN ---
Discharge today Male 70 DX CVA is discharged to home with family support and transportation.
== END 2020-09-20 16:05 | disposition home or self-care (01) | DRG 640 ==
LOC: HO.ED 13:43 → HO.EDOVER 16:11 → HO.IMC 17:07
PROVIDERS: Admitting Provider Internal Medicine; Emergency Provider Emergency Medicine Emergency Medical Services; PCP Nurse Practitioner Family; Visit Provider Internal Medicine
DX: E87.1 Hypo-osmolality and hyponatremia (principal); J96.01 Acute respiratory failure with hypoxia; J69.0 Pneumonitis due to inhalation of food and vomit; R47.01 Aphasia; F10.139 Alcohol abuse with withdrawal, unspecified; J44.9 Chronic obstructive pulmonary disease, unspecified; N31.9 Neuromuscular dysfunction of bladder, unspecified; E87.5 Hyperkalemia; E11.51 Type 2 diabetes mellitus with diabetic peripheral angiopathy without gangrene; N40.0 Benign prostatic hyperplasia without lower urinary tract symptoms; E11.65 Type 2 diabetes mellitus with hyperglycemia; F17.210 Nicotine dependence, cigarettes, uncomplicated; Z71.6 Tobacco abuse counseling; Z20.822 Contact with and (suspected) exposure to COVID-19; Z79.02 Long term (current) use of antithrombotics/antiplatelets; Z79.899 Other long term (current) drug therapy
CPT/HCPCS: 36415; 70450; 70551; 71045; 80048; 80076; 80307; 81001; 81003; 82077; 82550; 82607; 82746; 82947; 83605; 83930; 84484; 85025; 85027; 85610; 85730; 87040; 87086; 87635; 93005; 99285; J2060; J2560; J3411

== ENCOUNTER 2020-10-03 07:54 | Outpatient (REF) | payer MEDICARE, OTHER, SELFPAY ==
[2020-10-03 11:37] LABS: Glucose Urine UA NEG (NEG); Leukocyte Esterase Urine NEG (NEG); Nitrite Urine NEG (NEG); PH 6.5 (5.0-8.0); Urine Blood NEG (NEG); Urine Ketones NEG (NEG); Urine Protein TRACE MG/DL (NEG-TRACE)
[2020-10-03 11:41] LABS: Estimated Average Glucose 151 mg/dL; Hemoglobin A1C 152.6239 umol/L; Hemoglobin A1c % 6.9 %
[2020-10-03 11:44] LABS: Appearance Urine CLEAR; Color Urine YELLOW
[2020-10-03 11:58] LABS: Alanine Aminotransferase 9 U/L (0-40); Albumin Level 3.7 g/dL (3.5-5.0); Alkaline Phosphatase 100 U/L (39-117); Anion Gap 11 (12-20); Aspartate Amino Transferase 16 U/L (5-37); Bilirubin Total 0.6 mg/dL (0.0-1.0); Blood Urea Nitrogen 16 mg/dL (9-16); Calcium 8.6 mg/dL (8.4-10.2); Carbon Dioxide 25 mmol/L (22-29); Chloride 107 mmol/L (96-108); Cholesterol 122 mg/dL; Estimated Glomerular Filt Rate 55; Glucose Random 117 mg/dL (60-115); HDL Cholesterol 50 mg/dL; LDL Cholesterol Calculated 54 mg/dl; Potassium 4.4 mmol/L (3.3-5.1); Sodium 139 mmol/L (135-145); Total Protein 6.6 g/dL (6.5-8.0); Triglycerides 93 mg/dL
[2020-10-03 12:00] LABS: Creatinine Urine 41.69 mg/dL
[2020-10-03 12:24] LABS: RBC Urine 0 /HPF (0); Squamous Epithelial Cell Urine TRACE /LPF; WBC Urine 0 /HPF (0-4)
== END 2020-10-03 07:55 | disposition home or self-care (01) ==
LOC: HO.HMGCLDS 07:54
PROVIDERS: PCP Nurse Practitioner Family; Visit Provider Internal Medicine Nephrology
DX: R30.0 Dysuria (principal); E11.9 Type 2 diabetes mellitus without complications; A41.9 Sepsis, unspecified organism; N18.2 Chronic kidney disease, stage 2 (mild)
CPT/HCPCS: 36415; 80053; 80061; 81001; 82043; 83036; 87086

== ENCOUNTER → 2020-10-04 08:58 | Outpatient (BNVA) | payer MEDICARE, OTHER, SELFPAY | PROVIDERS: PCP Nurse Practitioner Family; Visit Provider Orthopaedic Surgery | DX: M70.62 Trochanteric bursitis, left hip (principal) | CPT/HCPCS: 99202 ==

== ENCOUNTER → 2020-10-14 08:26 | Outpatient (REF) | payer MEDICARE, OTHER, SELFPAY ==
--- NOTE | 2020-10-14 08:29 | CA_ITS ---
Transthoracic Echocardiogram Patient (Last, First, Middle): Konstantin Ashby, Gender: Male Date of : 1950 Age: 70 Procedure Date: 10/14/2020 Procedure Type: Transthoracic Echocardiogram Location: OP Height: 167.64 cm Weight: 54.43 kg BSA: 1.61 m2 Heart Rate: bpm BP: 142 / 70 mmHg Forklift Mechanic: AVELINA Referring MD: Joe Farris [facility] Symptoms: R79.89 - Other specified abnormal findings of blood chemi... Study Quality: Good ECG Rhythm: Sinus Conclusions: - The left ventricular systolic function is normal. The calculated ejection fraction is 62% by biplane method. - There is severe calcification of the aortic valve. There is no aortic valve stenosis. - There is mild mitral valve regurgitation. - There is mild tricuspid valve regurgitation. - Mild pulmonary hypertension is present. - Moderate plaque is seen in the sinuses of Valsalva. Findings Left Ventricle Normal left ventricular cavity size. There is normal left ventricular wall thickness. The left ventricular systolic function is normal. The calculated ejection fraction is 62% by biplane method. There is no evidence of regional wall motion abnormalities. E/E prime ratio is between 8 and 15 consistent with indeterminate filling pressures. Evidence suggests grade I (mild) diastolic dysfunction. Right Ventricle Normal right ventricular cavity size and systolic function. Atria Both atria are normal in size. Aortic Valve There is severe calcification of the aortic valve. There is no aortic valve stenosis. The peak aortic gradient is 7 mmHg.There is no aortic valve regurgitation. Mitral Valve There is mild mitral annular calcification. There is mild mitral valve regurgitation. There is no mitral valve stenosis. Pulmonic Valve The pulmonic valve was not well visualized. Tricuspid Valve Normal tricuspid valve structure. There is mild tricuspid valve regurgitation. The right ventricular systolic pressure is 37 mmHg. Mild pulmonary hypertension is present. Great Vessels The aortic annulus, sinuses of valsalva, and asc aorta are normal in size. Moderate plaque is seen in the sinuses of Valsalva. Venous The inferior vena cava is normal in size and collapses greater than 50% with inspiration. Pericardium/Pleural There is a trivial pericardial effusion. Prior Study Comparison Changes noted compared to prior study dated: 01/20/2019. Slight increase in RVSP. Possibly more valvular calcification. Measurements 2D Linear Measurements IVSd: 1.36 0.6-0.9/0.6-1.0 cm LVIDd: 4.13 3.9-5.3/4.2-5.9 cm LVIDd Index: 2.57 2.4-3.2/2.2-3.1 cm/m2 LVIDs: 2.66 2.0-3.6 cm LVPWd: 1.08 0.7-1.1 cm LA Diam: 3.90 2.7-3.8/3.0-4.0 cm LAIDs Index: 2.42 1.5-2.3 cm/m2 LV Mass: 221.67 67-162/88-224 g LV Mass Index: 137.69 43-95/49-115 g/m2 LVOT Diam: 2.10 3.0+(-)1.3 cm 2D Systolic Function EF 4C: 64.20 >55% EF 2C: 59.90 >55% EF BiP: 61.90 >55% Mitral Valve MV Pk E: 0.71 MV PK A: 0.80 MV Decel Time: 146.00 E/A: 0.90 E'Lateral: 7.51 E'Medial: 5.87 E/E' Med: 12.10 E/E' Lat: 9.50 PHT: 43.00 MVA PHT: 5.12 Decel Sutter: 5.23 Aortic Valve AoV Pk Nikolay: 1.34 AoV Pk Grad: 7.00 LVOT LVOT Pk Nikolay: 0.82 LVOT Mn Nikolay: 0.54 LVOT VTI: 0.20 LVOT Pk Grad: 3.00 LVOT Mn Grad: 1.00 LVOT Diam: 2.10 LVOT Area: 3.46 Diastolic Function MV Pk E: 0.71 MV Pk A: 0.80 E/A: 0.90 E'Medial: 5.87 E/E' Med: 12.10 E' Laterial: 7.51 E/E' Lat: 9.50 Tricuspid Valve TR Pk Nikolay: 2.93 TR Pk Grad: 34.00 RA Press: 3.00 RVSP: 37.00 Great Vessels Aorta Ao Asc: 3.00 2.1-3.4 cm Updated in Other Vendor System with Status of Final Andres Samuels MD electronically signed on 10/15/2020 1:39:47 PM with status of Final
== END ==
LOC: HO.CARD 08:26
PROVIDERS: Visit Provider Nurse Practitioner Family
DX: R79.89 Other specified abnormal findings of blood chemistry (principal)
CPT/HCPCS: 93306

== ENCOUNTER 2020-10-19 09:03 | Outpatient (RCR) | payer MEDICARE, OTHER, SELFPAY ==
[2020-10-19 09:10] VITALS: BP 150/72
--- NOTE | 2020-10-19 10:58 | MHC.PT.EP ---
[facility] Office [place] Office [place] Office [address] Kristi Major [address] [phone] F: [phone] F: [phone] F: [phone] F: [phone] Physical Therapy Plan of Care Date of Evaluation: Date of Surgery: Diagnosis: TROCHANTERIC BURSITIS LEFT HIP Assessment: 70 YO MALE REF TO PT FOR Lt TROCHANTERIC BURSITIS- OF SIGNIFICANCE, Pt HAD STENT PLACEMENTS (5 IN LEFT LE AND 1 IN Rt LE IN JAN 2020) AND HAS A LONG H/O LBP. HE CURRENTLY AMB W A CANE- DECR TRUNK MOB; LIMITED ALETA HIP FLEXIBILITY (ESPEC HIP EXT), GENERAL WEAKNESS, MILD PELVIC ASYMM CREATING LEFT LLI ,AND (+) PAIN IN LEFT HIP AREA / ALETA L/S REGION. FUNCTIONALLY, Pt IS LIMITED W GAIT/ WEIGHT BEARING ACTIVITIES, PROLONGED STANDING, AND TRANSITIONAL MOVEMENTS IN/ OUT OF CAR OR BED. Pt IS REF FOR Lt TROCH BURSITIS W TRIAL IONTO, AND WOULD ALSO BENEFIT FROM GENTLE SOFT TISSUE MOB/ THER EXER TO REDUCE SOFT TISSUE RESTRICTION IN HIPS AND TRUNK. Frequency and Duration: The patient will be seen 2x WK x 5 WKS Short Term Goals: DECR Pt'S LEFT HIP PAIN TO A 2-3/10 IN 2 WKS Pt DEMON IMPROVED ALETA HIP FLEXIB IN 2 WKS Pt DEMON IMPROVED SELF CORRECT OF POSTURE/ POSITINING/ BODY MECH W ADL SIMUL IN 3 WKS Systems Software Manager Goals: Pt INDEP W HEP AND SELF-SX MGMT TECHN IN 5 WKS LEFT SCORE IMPROVED BY AT LEAST 8 POINTS (AT EVAL 27/80) IN 5 WKS Treatment Plan: Modalities to reduce pain, spasms and effusion. Manual therapy to restore motion and function. Therapeutic exercise to improve strength and flexibility. Neuromuscular re-education for posture and balance. Therapeutic activities to return to functional activities of daily living. Electronically signed by: Francisca MartinezPT Please sign and return to therapist. Thank you for your referral.
--- NOTE | 2020-10-27 14:32 | MHC.PT.DC ---
[facility] [place] Office [place] Office [place] Office [address] Kristi Major [address] [facility] [phone] F: [phone] F: [phone] F: [phone] F: [phone] Physical Therapy Discharge Report Diagnosis: TROCHANTERIC BURSITIS LEFT HIP Date of Surgery: Date of Evaluation: 10/19/20 Date of Discharge: 10/27/20 Treatments to Date: 1 Cancellations to Date: 0 No Shows to Date: 0 Discharge Status: Discharge Summary: Pt WAS ANA 10/19/20 IN PT, HIS FIRST F/U PT APPT WAS SCHED FOR TODAY, WE RECEIVED A CALL THIS AM FROM MRS SCHERER STATING MR SCHERER HAD . Electronically signed by: Francisca Martinez,PT Please sign and return to therapist. Thank you for your referral.
== END 2020-10-27 14:33 | disposition home or self-care (01) ==
LOC: HO.PTCHIC 09:03
PROVIDERS: PCP Nurse Practitioner Family; Visit Provider Orthopaedic Surgery
DX: M70.62 Trochanteric bursitis, left hip (principal); M16.12 Unilateral primary osteoarthritis, left hip; M25.552 Pain in left hip
CPT/HCPCS: 97110; 97162